=== PATIENT | female | born 1945 | race Caucasian/White ===

== ENCOUNTER 2017-10-27 22:01 | Emergency (ER) | payer OTHER ==
[2017-10-27 23:02] LABS: Absolute Lymphocytes (CBC) 2.9 K/uL (0.7-4.9); Absolute Monocytes 0.9 K/uL (0.1-1.3); Absolute Neutrophil 4.2 K/uL (1.8-8.0); Basophils % 0.7 % (0-1.3); Eosinophils % 1.4 % (0-4.4); Hematocrit 41.4 % (36.0-45.0); Lymphocytes % 35.7 % (15.3-44.8); MCH 30.1 pg (27.0-35.0); MCV 89.7 fL (80-100); MPV 9.1 fL (7.6-11.3); Monocytes % 10.9 % (3.3-12.3); RBC Red Blood Cell Count 4.62 M/uL (3.86-4.86)
[2017-10-27 23:16] LABS: Potassium 3.6 mEq/L (3.6-5.0); Protime INR 1.03
[2017-10-27 23:22] LABS: Albumin 4.2 g/dL (3.2-5.5); Bilirubin Direct 0.1 mg/dL (0-0.2); Bilirubin Total 0.6 mg/dL (0.3-1.2); Magnesium 1.9 mg/dL (1.8-2.5); Protein, Total 7.2 g/dL (6.0-8.3)
[2017-10-27] MEDS ORDERED: METHYLPREDNISOLONE 125 MG INJ ONE (23:36)
[2017-10-27] MEDS ORDERED: LEVALBUTEROL 1.25 MG/3 ML NEB ONE (23:36)
[2017-10-27] MEDS ORDERED: Magnesium Sulfate 2gm IVPB 2 G/50 ML BAG IV ONE (23:37)
[2017-10-28] MEDS ORDERED: LEVALBUTEROL 1.25 MG/3 ML NEB ONE (00:22)
[2017-10-28] MEDS ORDERED: CEFTRIAXONE/SWI 1gm 2 GM/20 ML SYR ONE (00:40)
[2017-10-28] MEDS ORDERED: AZITHROMYCIN 500 MG/250 ML BAG ONE (00:42)
[2017-10-28] MEDS ORDERED: ONDANSETRON 4 MG/2 ML VIAL ONE (00:50)
--- NOTE | 2017-10-28 01:29 | ER ---
Nurse's Notes [facility] Name: Magaly Osorio Age: 72 yrs Sex: Female : 1945 Arrival Date: 10/27/2017 Time: 22:03 Bed 2 Private MD: Diagnosis: COPD exacerbation Presentation: 10/27 22:20 Presenting complaint: Patient states: "I'm wheezing a lot. I have an inhaler and is not ao working. I'm coughing a lot." Patient denies fever and report SOB when walking. Transition of care: patient was not received from another setting of care. Onset of symptoms was October 19, 2007. Care prior to arrival: None. 22:20 Method Of Arrival: Ambulatory ao 22:20 Acuity: DEE 3 ao Triage Assessment: 22:28 General: Appears in no apparent distress. uncomfortable, Behavior is appropriate for ao age. Pain: Complains of pain in chest. Respiratory: Reports shortness of breath at rest Onset: The symptoms/episode began/occurred at an unknown time. the patient has severe shortness of breath. Historical: - Allergies: 22:25 Aspirin; ao 22:25 Benadryl; ao 22:25 Tylenol-Codeine #3; ao - Home Meds: 22:25 prednisone 10 mg Oral tab once daily [Active]; azithromycin 500 mg Oral tab 1 tab once ao daily [Active]; Nexium 20 mg Oral cpDR 1 cap once daily [Active]; Lipitor 10 mg Oral tab 1 tab once daily [Active]; Multiple Vitamins oral oral [Active]; - PMHx: 22:25 acid reflux; COPD; Hyperlipidemia; Asthma; ao - PSHx: 22:25 None; ao - Immunization history:: Adult Immunizations up to date. - Social history:: Smoking status: Patient/guardian denies using tobacco, but has a distant history of tobacco abuse, Patient/guardian denies using alcohol, street drugs. Screenin:47 Abuse screen: Denies threats or abuse. Denies injuries from another. Nutritional bs1 screening: No deficits noted. Tuberculosis screening: No symptoms or risk factors identified. Fall Risk None identified. Assessment: 23:03 General: Appears in no apparent distress. uncomfortable, Behavior is cooperative, bs1 appropriate for age, anxious. Pain: Denies pain. Neuro: Level of Consciousness is awake, alert, obeys commands, Oriented to person, place, time, situation, Appropriate for age Hunting Sales Leader are equal bilaterally Moves all extremities. Gait is steady, Speech is normal, Facial symmetry appears normal, Pupils are PERRLA. Cardiovascular: Denies chest pain, palpitations, Heart tones S1 S2 present Capillary refill < 3 seconds Patient's skin is warm and dry. Rhythm is regular. Respiratory: Breath sounds with wheezes. Respiratory: Airway is patent Trachea midline Respiratory effort is even, unlabored, Respiratory pattern is regular, symmetrical, Breath sounds with wheezes bilaterally. GI: No deficits noted. No signs and/or symptoms were reported involving the gastrointestinal system. : No deficits noted. No signs and/or symptoms were reported regarding the genitourinary system. EENT: No deficits noted. No signs and/or symptoms were reported regarding the EENT system. Derm: No deficits noted. No signs and/or symptoms reported regarding the dermatologic system. Musculoskeletal: Circulation, motion, and sensation intact. Capillary refill < 3 seconds, Range of motion: intact in all extremities. 23:03 General: 2L NC applied per verba, order Dr Resendiz. bs1 23:48 Reassessment: Patient appears in no apparent distress at this time. Patient is alert, bs1 oriented x 3, equal unlabored respirations, skin warm/dry/pink. Patient states symptoms have improved. 10/28 00:30 General: Patient nauseous, zofran given IV 4mg per Order from Dr Resendiz.. bs1 00:48 Reassessment: Patient and/or family updated on plan of care and expected duration. Pain bs1 level reassessed. Patient is alert, oriented x 3, equal unlabored respirations, skin warm/dry/pink. 01:31 Reassessment: Patient appears in no apparent distress at this time. Patient and/or bs1 family updated on plan of care and expected duration. Pain level reassessed. Patient states feeling better. 01:42 Reassessment: Patient appears in no apparent distress at this time. Patient and/or tl2 family updated on plan of care and expected duration. Pain level reassessed. Patient is alert, oriented x 3, equal unlabored respirations, skin warm/dry/pink. pt verbalized understanding of discharge instructions, need for follow up and prescription usage Patient states feeling better. Vital Signs: 10/27 22:26 BP 145 / 90; Pulse 84; Resp 18; Temp 97.4; Pulse Ox 97% ; Weight 80.29 kg; Height 5 ft. ao 1 in. (154.94 cm); Pain 2/10; 23:26 BP 143 / 88; Pulse 82; Resp 17; Temp 97.9(O); Pulse Ox 100% on R/A; Pain 0/10; bs1 10/28 00:26 BP 140 / 86; Pulse 88; Resp 15; Pulse Ox 100% on R/A; Pain 0/10; bs1 01:25 BP 127 / 76; Pulse 92; Resp 16 S; Pulse Ox 100% on R/A; Pain 0/10; bs1 01:42 BP 130 / 77; Pulse 90; Resp 18; Pulse Ox 95% on R/A; tl2 10/27 22:26 Body Mass Index 33.44 (80.29 kg, 154.94 cm) ao ED Course: 10/27 22:03 Patient arrived in ED. al2 22:22 Triage completed. ao 22:22 Arm band placed on right wrist. Patient placed in waiting room, Patient notified of ao wait time. 22:32 Tad Resendiz MD is Attending Physician. wa 22:45 Inserted saline lock: 20 gauge in right antecubital area, using aseptic technique. bs1 23:00 X-ray completed. Patient tolerated procedure well. jw2 23:02 Delores Hanson, RN is Primary Nurse. bs1 23:02 Flu Sent. bs1 23:12 EKG done, by ED staff, reviewed by Tad Resendiz MD. mt 23:40 Second set of blood cultures drawn by ma. bs1 23:47 Patient has correct armband on for positive identification. Bed in low position. Call bs1 light in reach. Side rails up X 1. 10/28 01:42 No provider procedures requiring assistance completed. IV discontinued, intact, tl2 bleeding controlled, No redness/swelling at site. Pressure dressing applied. Administered Medications: 10/27 23:32 Drug: Xopenex 1.25 mg Route: Inhalation; bs1 23:32 Drug: SOLU-Medrol 125 mg Route: IVP; Site: right antecubital; bs1 10/28 01:45 Follow up: Response: No adverse reaction tl2 10/27 23:32 Drug: Magnesium Sulfate 2 grams Route: IVPB; Infused Over: 2 hrs; Site: right bs1 antecubital; 10/28 01:45 Follow up: IV Status: Completed infusion tl2 00:06 Drug: Xopenex 1.25 mg Route: Inhalation; bs1 00:30 Drug: Rocephin - (cefTRIAXone) 2 grams Route: IVPB; Infused Over: 30 mins; Site: right bs1 antecubital; 01:44 Follow up: IV Status: Completed infusion tl2 00:32 Drug: Zithromax 500 mg Route: IVPB; Infused Over: 1 hrs; Site: right antecubital; bs1 01:44 Follow up: IV Status: Completed infusion tl2 00:34 Drug: Zofran 4 mg Route: IVP; Site: right antecubital; bs1 01:32 Follow up: Response: No adverse reaction bs1 Outcome: 01:28 Discharge ordered by . magnus 01:42 Discharged to home ambulatory, with family. tl2 01:42 Condition: stable 01:42 Discharge instructions given to patient, family, Instructed on discharge instructions, follow up and referral plans. medication usage, Demonstrated understanding of instructions, follow-up care, medications, Prescriptions given X 1. 01:45 Patient left the ED. tl2 Signatures: Joey Doyle RN RN ao Wailes, Jenni 2 Luz Drew RN RN tl2 Liss Ferrer mt, William, MD MD wa Salazar, Brittany, RN RN bs1 Светлана Cole al2 Corrections: (The following items were deleted from the chart) 10/27 23:10 22:20 Presenting complaint: Patient states: "I'm wheezing a lot. I have some inhaler ao and are not working. I'm coughing a lot." Patient denies fever and report SOB when walking. ao 10/28 01:20 01:19 BP 143 / 88; Pulse 82bpm; Resp 17bpm; Pulse Ox 100% RA; Temp 97.9F Oral; Pain bs1 0/10; bs1
--- NOTE | 2017-10-28 01:29 | EDPHYS ---
Physician Documentation [facility] Name: Magaly Osorio Age: 72 yrs Sex: Female : 1945 Arrival Date: 10/27/2017 Time: 22:03 Bed 2 Private MD: ED Physician Tad Resendiz Historical: - Allergies: 10/27 22:25 Aspirin; ao 22:25 Benadryl; ao 22:25 Tylenol-Codeine #3; ao - Home Meds: 22:25 prednisone 10 mg Oral tab once daily [Active]; azithromycin 500 mg Oral tab 1 tab once ao daily [Active]; Nexium 20 mg Oral cpDR 1 cap once daily [Active]; Lipitor 10 mg Oral tab 1 tab once daily [Active]; Multiple Vitamins oral oral [Active]; - PMHx: 22:25 acid reflux; COPD; Hyperlipidemia; Asthma; ao - PSHx: 22:25 None; ao - Immunization history:: Adult Immunizations up to date. - Social history:: Smoking status: Patient/guardian denies using tobacco, but has a distant history of tobacco abuse, Patient/guardian denies using alcohol, street drugs. Vital Signs: 22:26 BP 145 / 90; Pulse 84; Resp 18; Temp 97.4; Pulse Ox 97% ; Weight 80.29 kg; Height 5 ft. ao 1 in. (154.94 cm); Pain 2/10; 23:26 BP 143 / 88; Pulse 82; Resp 17; Temp 97.9(O); Pulse Ox 100% on R/A; Pain 0/10; bs1 10/28 00:26 BP 140 / 86; Pulse 88; Resp 15; Pulse Ox 100% on R/A; Pain 0/10; bs1 01:25 BP 127 / 76; Pulse 92; Resp 16 S; Pulse Ox 100% on R/A; Pain 0/10; bs1 01:42 BP 130 / 77; Pulse 90; Resp 18; Pulse Ox 95% on R/A; tl2 10/27 22:26 Body Mass Index 33.44 (80.29 kg, 154.94 cm) ao MDM: 10/27 22:32 Patient medically screened. 10/27 22:42 Order name: Blood Culture Adult (2) 10/27 22:42 Order name: BMP 10/27 22:42 Order name: BNP 10/27 22:42 Order name: CBC with Diff 10/27 22:42 Order name: CPK 10/27 22:42 Order name: Hepatic Function 10/27 22:42 Order name: Magnesium 10/27 22:42 Order name: PT-INR 10/27 22:42 Order name: Troponin (emerg Dept Use Only) ak 10/27 22:43 Order name: Flu ak 10/27 23:06 Order name: CBC with Automated Diff; Complete Time: 00:01 EDMS 10/27 23:16 Order name: Influenza Screen (A ; Complete Time: 00:01 EDMS 10/27 23:17 Order name: Basic Metabolic Panel; Complete Time: 00:01 EDMS 10/27 23:17 Order name: Protime (+INR); Complete Time: 00:01 EDMS 10/27 22:42 Order name: XRAY Chest Pa And Lat (2 Views) ak 10/27 22:42 Order name: EKG; Complete Time: 22:43 ak 10/27 22:42 Order name: Cardiac monitoring; Complete Time: 22:50 ak 10/27 22:42 Order name: EKG - Nurse/Tech; Complete Time: 23:12 ak 10/27 23:23 Order name: Liver (Hepatic) Function; Complete Time: 00:01 EDMS 10/27 23:23 Order name: Creatine Phosphokinase; Complete Time: 00:01 EDMS 10/27 23:23 Order name: Magnesium; Complete Time: 00:01 EDMS 10/27 23:24 Order name: Troponin (Emerg Dept Use Only); Complete Time: 00:01 EDMS 10/27 23:27 Order name: BNP B-Type Natriuretic Peptide; Complete Time: 00:01 EDMS 10/27 22:42 Order name: IV Saline Lock; Complete Time: 22:49 ak 10/27 22:42 Order name: Labs collected and sent; Complete Time: 22:49 ak 10/27 22:42 Order name: O2 Per Protocol; Complete Time: 22:50 ak 10/27 22:42 Order name: O2 Sat Monitoring; Complete Time: 22:50 ak Administered Medications: 23:32 Drug: Xopenex 1.25 mg Route: Inhalation; bs1 23:32 Drug: SOLU-Medrol 125 mg Route: IVP; Site: right antecubital; bs1 10/28 01:45 Follow up: Response: No adverse reaction tl2 10/27 23:32 Drug: Magnesium Sulfate 2 grams Route: IVPB; Infused Over: 2 hrs; Site: right bs1 antecubital; 10/28 01:45 Follow up: IV Status: Completed infusion tl2 00:06 Drug: Xopenex 1.25 mg Route: Inhalation; bs1 00:30 Drug: Rocephin - (cefTRIAXone) 2 grams Route: IVPB; Infused Over: 30 mins; Site: right bs1 antecubital; 01:44 Follow up: IV Status: Completed infusion tl2 00:32 Drug: Zithromax 500 mg Route: IVPB; Infused Over: 1 hrs; Site: right antecubital; bs1 01:44 Follow up: IV Status: Completed infusion tl2 00:34 Drug: Zofran 4 mg Route: IVP; Site: right antecubital; bs1 01:32 Follow up: Response: No adverse reaction bs1 Disposition: 10/28/17 01:28 Discharged to Home. Impression: COPD exacerbation. - Condition is Stable. - Discharge Instructions: Chronic Bronchitis. - Prescriptions for Albuterol Sulfate 2.5 mg /3 mL (0.083 %) Inhalation Solution for Nebulization - inhale 1 unit by NEBULIZATION route every 8 hours As needed; 1 box. - Medication Reconciliation Form, Thank You Letter, Antibiotic Education, Prescription Opioid Use form. - Follow up: Private Physician; When: 2 - 3 days; Reason: Recheck today's complaints. - Problem is new. - Symptoms have improved. - Notes: take 40 mg prednisone daily for 4 days. use albuterol neb every 4 hours as needed for cough and difficulty breathing. you may continue to take your zpack. follow up with your lung doctor within 3 days Addendum: 11/09/2017 17:17 Addendum: CC: Chest congestion. SOB. cough. HPI: 72 yo F w/ h/o asthma and COPD. c/o w a SOB. congestion. cough x 1 week. states taking prednisone 10 mg a day and zithromax but appears to be getting worse. denies chest pain. admits to cough with yellow sputum. PMHx: GERD. COPD. asthma. hyperlipidemia. Allergies: ASA. benadryl. Codeine. Meds: prednisone. zithromax. nexium. lipitor. vitamins. PsurgHx: none. ROS: SOB. cough and congestion. otherwise all ROS reviewed and negative. Exam: Const: NAD. HEENT: normocephalic. atraumatic. neck supple. CVS: NS1S2, no murmurs. Chest: bilateral expiratory wheezing. nml excursion. Abd: obese, non-distended, non-tender. Ext: no swelling. no edema. DDx: r/o pna. r/o ACS. consider asthma vs COPD exacerbation. consider CHF. Plan: monitor. check CXR, labs, EKG. give nebs, solumedrol, mag, abx. reassess. Reassessment: significantly improved. mild scattered wheezes auscultated. pt speaking in full sentences. labs and CXR reviewed. pt desired to go home and f/u with her doc. pt improved enough for trial of out pt continued tx. Dx: cough. SOB. Signatures: Dispatcher [employer] Joey Walker, RN Luz Quiles RN RN tl2 Tad Resendiz MD MD wa Salazar, Brittany RN RN bs1
--- NOTE | 2017-10-28 05:12 | EKG ---
Test Date: 2017-10-27 Test Time: 23:06:14 Marine Biologist: ANI MEASUREMENT RESULTS: Intervals: Rate: 81 NV: 144 QRSD: 92 QT: 360 QTc: 418 [place]: P: 51 NV: 144 QRS: -2 T: 57 INTERPRETIVE STATEMENTS: Normal sinus rhythm Left ventricular hypertrophy with repolarization abnormality Cannot rule out Septal infarct, age undetermined T inversion anterior leads Abnormal ECG Compared to ECG 11/06/2013 07:30:42 Myocardial infarct finding now present T inversion now present Electronically Signed On 10-28-17 05:11:33 CDT by Joss Uriostegui
[2017-10-28 05:25] VITALS: TEMP 97.9
[2017-10-28 05:29] VITALS: BP 130/77; O2SAT 95
--- NOTE | 2017-10-28 08:59 | RAD REPORT ---
EXAM DESCRIPTION: RAD - Chest Pa And Lat (2 Views) - 10/27/2017 11:01 pm CLINICAL HISTORY: Wheezing, cough, shortness of breath COMPARISON: June 2017 TECHNIQUE: PA and lateral views of the chest were obtained. FINDINGS: The lungs are clear. Lung markings are similar to comparison. No peribronchial thickening . Diaphragmatic eventration has not changed. Trachea is in the midline. Heart size is normal and cent ral vasculature is within normal limits. No pleural effusion or pneumothorax seen. No acute bony fi nding noted. No aortic abnormality. IMPRESSION: No acute cardiopulmonary process. No identifiable change from prior imaging.
== END 2017-10-28 01:45 | disposition home or self-care (01) ==
LOC: ER 22:01
DX: J44.1 Chronic obstructive pulmonary disease with (acute) exacerbation (principal); Z88.5 Allergy status to narcotic agent; Z88.6 Allergy status to analgesic agent; Z88.8 Allergy status to other drugs, medicaments and biological substances
CPT/HCPCS: 36415; 71046; 80048; 80076; 82550; 83735; 83880; 84484; 85025; 85610; 87040 ×2; 87804 ×2; 93005; 96361; 96365; 96367; 96375; 99284; J0456; J0696; J2405; J2930; J3475

== ENCOUNTER 2019-01-07 15:55 | Emergency (ER) | payer OTHER ==
--- NOTE | 2019-01-07 18:01 | EDPHYS ---
Physician Documentation [facility] Name: Magaly Osorio Age: 73 yrs Sex: Female : 1945 Arrival Date: 01/07/2019 Time: 15:58 Bed 11 Private MD: Maynor Potts ED Physician Tristin Cason HPI: 01/07 18:15 This 73 yrs old Female presents to ER via Ambulatory with complaints of Ear snw Pain. 18:15 The patient presents with hearing loss, complete. The complaints affect the right ear. snw Onset: The symptoms/episode began/occurred 1 month(s) ago, and became persistent. Associated signs and symptoms: The patient has no apparent associated signs or symptoms. Severity of symptoms: At their worst the symptoms were moderate. The patient has not experienced similar symptoms in the past. It is unknown whether or not the patient has recently seen a physician. Historical: - Allergies: 16:13 Aspirin; tw2 16:13 Benadryl; tw2 16:13 Tylenol-Codeine #3; tw2 - Home Meds: 16:13 Nexium 20 mg Oral cpDR 1 cap once daily [Active]; Lipitor 10 mg Oral tab 1 tab once tw2 daily [Active]; prednisone 10 mg Oral tab once daily [Active]; Multiple Vitamins Oral [Active]; Singulair 10 mg Oral tab 1 tab once daily [Active]; ProAir HFA 90 mcg/actuation inhalation HFAA 2 puffs [Active]; albuterol sulfate 1.25 mg/3 mL Inhl nebu 3 mL 3 times per day [Active]; 16:15 Pulmicort 1 mg/2 mL Inhl nbsp 2 mL once daily [Active]; tw2 - PMHx: 16:13 acid reflux; Asthma; COPD; Hyperlipidemia; tw2 - PSHx: 16:13 None; tw2 - Immunization history:: Adult Immunizations. - Social history:: Smoking status: . - Ebola Screening: : Patient denies travel to an Ebola-affected area in the 21 days before illness onset. ROS: 18:16 Constitutional: Negative for fever, chills, and weight loss, Eyes: Negative for injury, snw pain, redness, and discharge, ENT: Negative for injury, pain, and discharge, + hearing loss to right ear Neck: Negative for injury, pain, and swelling, Cardiovascular: Negative for chest pain, palpitations, and edema, Respiratory: Negative for shortness of breath, cough, wheezing, and pleuritic chest pain, Abdomen/GI: Negative for abdominal pain, nausea, vomiting, diarrhea, and constipation, Back: Negative for injury and pain, : Negative for injury, bleeding, discharge, and swelling, MS/Extremity: Negative for injury and deformity, Skin: Negative for injury, rash, and discoloration, Neuro: Negative for headache, weakness, numbness, tingling, and seizure. Exam: 18:14 Constitutional: This is a well developed, well nourished patient who is awake, alert, snw and in no acute distress. Head/Face: Normocephalic, atraumatic. Eyes: Pupils equal round and reactive to light, extra-ocular motions intact. Lids and lashes normal. Conjunctiva and sclera are non-icteric and not injected. Cornea within normal limits. Periorbital areas with no swelling, redness, or edema. Neck: Trachea midline, no thyromegaly or masses palpated, and no cervical lymphadenopathy. Supple, full range of motion without nuchal rigidity, or vertebral point tenderness. No Meningismus. Chest/axilla: Normal chest wall appearance and motion. Nontender with no deformity. No lesions are appreciated. Cardiovascular: Regular rate and rhythm with a normal S1 and S2. No gallops, murmurs, or rubs. Normal PMI, no JVD. No pulse deficits. Respiratory: Lungs have equal breath sounds bilaterally, clear to auscultation and percussion. No rales, rhonchi or wheezes noted. No increased work of breathing, no retractions or nasal flaring. Abdomen/GI: Soft, non-tender, with normal bowel sounds. No distension or tympany. No guarding or rebound. No evidence of tenderness throughout. Back: No spinal tenderness. No costovertebral tenderness. Full range of motion. Skin: Warm, dry with normal turgor. Normal color with no rashes, no lesions, and no evidence of cellulitis. MS/ Extremity: Pulses equal, no cyanosis. Neurovascular intact. Full, normal range of motion. Neuro: Awake and alert, GCS 15, oriented to person, place, time, and situation. Cranial nerves II-XII grossly intact. Motor strength 5/5 in all extremities. Sensory grossly intact. Cerebellar exam normal. Normal gait. Psych: Awake, alert, with orientation to person, place and time. Behavior, mood, and affect are within normal limits. 18:14 ENT: External ear(s): are unremarkable, Ear canal(s): cerumen impaction, that is severe, that is hard, occluding the right ear canal, Nose: is normal, Mouth: is normal, Voice: is normal. Vital Signs: 16:13 BP 150 / 87; Pulse 84; Resp 17; Temp 97.8(O); Pulse Ox 98% on R/A; Weight 79.83 kg (R); tw2 Height 5 ft. 2 in. (157.48 cm); Pain 5/10; 17:12 BP 134 / 74; Pulse 78; Resp 18; Temp 98; Pulse Ox 98% on R/A; Pain 3/10; mg2 18:15 BP 130 / 78; Pulse 70; Resp 18; Temp 98; Pulse Ox 100% on R/A; mg2 16:13 Body Mass Index 32.19 (79.83 kg, 157.48 cm) tw2 MDM: 17:39 Patient medically screened. ezekiel 18:15 Data reviewed: vital signs, nurses notes. Data interpreted: Pulse oximetry: on room air snw is 98 %. Interpretation: normal. Counseling: I had a detailed discussion with the patient and/or guardian regarding: the historical points, exam findings, and any diagnostic results supporting the discharge/admit diagnosis, the need for outpatient follow up, to return to the emergency department if symptoms worsen or persist or if there are any questions or concerns that arise at home. Special discussion: Based on the history and exam findings, there is no indication for further emergent testing or inpatient evaluation. I discussed with the patient/guardian the need to see the ENT specialist for further evaluation of the symptoms. I discussed with the patient/guardian the need to see the primary care provider for further evaluation of the symptoms. Administered Medications: No medications were administered Disposition: 01/08 07:47 Co-signature as Attending Physician, Tristin Cason MD I agree with the assessment and ezekiel plan of care. Disposition: 01/07/19 18:00 Discharged to Home. Impression: Impacted cerumen, right ear. - Condition is Stable. - Discharge Instructions: Earwax Buildup, Adult, Ear Drops, Adult. - Prescriptions for Debrox 6.5 % Otic drops - instill 10 drop by OTIC route 2 times per day; 1 Container. - Medication Reconciliation Form, Thank You Letter, Antibiotic Education, Prescription Opioid Use form. - Follow up: Maynor Potts MD; When: 2 - 3 days; Reason: Recheck today's complaints, Continuance of care, Re-evaluation by your physician. Follow up: Emergency Department; When: As needed; Reason: Worsening of condition. Follow up: Ayaka Lynne MD; When: 1 week; Reason: Recheck today's complaints, Continuance of care, Re-evaluation by your physician. Signatures: Tristin Cason MD MD cha Therrien, Shelly, ENZYME CHEMIST-C ENZYME CHEMIST-Csnw Ayaka Hernandez RN RN tw2 Mir Martinez RN RN mg2 Corrections: (The following items were deleted from the chart) 01/07 18:16 18:00 01/07/2019 18:00 Discharged to Home. Impression: Impacted cerumen, right ear. mg2 Condition is Stable. Forms are Medication Reconciliation Form, Thank You Letter, Antibiotic Education, Prescription Opioid Use. Follow up: Maynor Potts; When: 2 - 3 days; Reason: Recheck today's complaints, Continuance of care, Re-evaluation by your physician. Follow up: Emergency Department; When: As needed; Reason: Worsening of condition. Follow up: Ayaka Lynne; When: 1 week; Reason: Recheck today's complaints, Continuance of care, Re-evaluation by your physician. snw
--- NOTE | 2019-01-07 18:01 | ER ---
Nurse's Notes [facility] Name: Magaly Osorio Age: 73 yrs Sex: Female : 1945 Arrival Date: 01/07/2019 Time: 15:58 Bed 11 Private MD: Maynor Potts Diagnosis: Impacted cerumen, right ear Presentation: 01/07 16:10 Presenting complaint: Patient states: i cant hear out of my RIGHT ear and it hurts tw2 deep, it started hurting about a month ago, i tried to see if it would get better but it hasnt, i started having nasal congestion the other day, i just got over a bad cold or flu, i dont know if it is coming back or what. Transition of care: patient was not received from another setting of care. Onset of symptoms was January 07, 2019. Risk Assessment: Do you want to hurt yourself or someone else? Patient reports no desire to harm self or others. Initial Sepsis Screen: Does the patient meet any 2 criteria? No. Patient's initial sepsis screen is negative. Does the patient have a suspected source of infection? No. Patient's initial sepsis screen is negative. Care prior to arrival: None. 16:10 Method Of Arrival: Ambulatory tw2 16:10 Acuity: DEE 4 tw2 Triage Assessment: 16:14 General: Appears in no apparent distress. well groomed, Behavior is calm, cooperative, tw2 appropriate for age. Pain: Complains of pain in right ear. EENT: Reports nasal congestion nasal discharge pain in right ear. Historical: - Allergies: 16:13 Aspirin; tw2 16:13 Benadryl; tw2 16:13 Tylenol-Codeine #3; tw2 - Home Meds: 16:13 Nexium 20 mg Oral cpDR 1 cap once daily [Active]; Lipitor 10 mg Oral tab 1 tab once tw2 daily [Active]; prednisone 10 mg Oral tab once daily [Active]; Multiple Vitamins Oral [Active]; Singulair 10 mg Oral tab 1 tab once daily [Active]; ProAir HFA 90 mcg/actuation inhalation HFAA 2 puffs [Active]; albuterol sulfate 1.25 mg/3 mL Inhl nebu 3 mL 3 times per day [Active]; 16:15 Pulmicort 1 mg/2 mL Inhl nbsp 2 mL once daily [Active]; tw2 - PMHx: 16:13 acid reflux; Asthma; COPD; Hyperlipidemia; tw2 - PSHx: 16:13 None; tw2 - Immunization history:: Adult Immunizations. - Social history:: Smoking status: . - Ebola Screening: : Patient denies travel to an Ebola-affected area in the 21 days before illness onset. Screenin:12 Abuse screen: Denies threats or abuse. Denies injuries from another. Nutritional mg2 screening: No deficits noted. Tuberculosis screening: No symptoms or risk factors identified. Fall Risk None identified. Assessment: 17:12 EENT: Reports pain in right ear pain and buzzling sound in the right ear for a month mg2 now. . 18:15 Reassessment: No changes from previously documented assessment. mg2 Vital Signs: 16:13 BP 150 / 87; Pulse 84; Resp 17; Temp 97.8(O); Pulse Ox 98% on R/A; Weight 79.83 kg (R); tw2 Height 5 ft. 2 in. (157.48 cm); Pain 5/10; 17:12 BP 134 / 74; Pulse 78; Resp 18; Temp 98; Pulse Ox 98% on R/A; Pain 3/10; mg2 18:15 BP 130 / 78; Pulse 70; Resp 18; Temp 98; Pulse Ox 100% on R/A; mg2 16:13 Body Mass Index 32.19 (79.83 kg, 157.48 cm) tw2 ED Course: 15:58 Patient arrived in ED. mr 15:58 Maynor Potts MD is Private Physician. mr 16:12 Triage completed. tw2 16:14 Arm band placed on. tw2 16:59 Mir Martinez, TODD is Primary Nurse. mg2 17:12 No provider procedures requiring assistance completed. Patient did not have IV access mg2 during this emergency room visit. 17:13 Patient has correct armband on for positive identification. mg2 17:30 Joanne Xie FNP-C is [facility]. snw 17:30 Tristin Cason MD is Attending Physician. snw 17:58 Maynor Potts MD is Referral Physician. snw 17:58 Ayaka Lynne MD is Referral Physician. snw Administered Medications: No medications were administered Outcome: 18:00 Discharge ordered by MD. brar 18:15 Discharged to home ambulatory, with family. mg2 18:15 Condition: stable 18:15 Discharge instructions given to patient, Instructed on discharge instructions, follow up and referral plans. medication usage, Demonstrated understanding of instructions, follow-up care, medications, Prescriptions given X 1. 18:16 Patient left the ED. mg2 Signatures: Joanne Xie, SPECIAL EDUCATION SUPERVISOR-C SPECIAL EDUCATION SUPERVISOR-Csnw Linda Dozier mr Ayaka Hernandez, RN RN tw2 Mir Martinez, TODD RN mg2
[2019-01-07 19:25] VITALS: TEMP 98
[2019-01-07 19:26] VITALS: BP 130/78; O2SAT 100
== END 2019-01-07 18:16 | disposition home or self-care (01) ==
LOC: ER 15:55
DX: H61.21 Impacted cerumen, right ear (principal); E78.5 Hyperlipidemia, unspecified; J44.9 Chronic obstructive pulmonary disease, unspecified; Z88.5 Allergy status to narcotic agent; Z88.6 Allergy status to analgesic agent; Z88.8 Allergy status to other drugs, medicaments and biological substances
CPT/HCPCS: 99282

== ENCOUNTER 2021-02-20 13:38 | Emergency (ER) | payer OTHER ==
--- OUTSIDE RECORDS SUMMARY | 2021-02-20 13:40 | XMS REPORT | Continuity of Care Document ---
:1945 Author Organization [facility] t Address [address] [place] [address] Care Team Providers Name Role Phone Neal Aguero Attending Clinician Problems This patient has no known problems. Allergies, Adverse Reactions, Alerts This patient has no known allergies or adverse reactions. Medications This patient has no known medications. Procedures This patient has no known procedures. Encounters Start End Encounter Admission Attending Care Care Encounter Source Date/Time Date/Time Type Type Clinicians Facility Department ID 2019-09-10 2019-09-10 Office TERRI Feng [id number] 13:22:38 14:19:24 Visit [facility] [id number] Surgical [id number] Specialti [id number] [address] [place] Results This patient has no known results.
[2021-02-20] MEDS ORDERED: ACETAMINOPHEN 325 MG TABLET ONE (14:39)
--- NOTE | 2021-02-20 15:51 | RAD REPORT ---
EXAM DESCRIPTION: US - Extremity Venous Uni Ltd - 02/20/2021 3:20 pm CLINICAL HISTORY: PAIN Leg swelling and edema. COMPARISON: Extremity Venous Uni Ltd dated 04/08/2020 FINDINGS: Right lower extremity venous system was interrogated with Doppler technique. Normal flow, compressibility and augmentation was noted. There is no DVT present. IMPRESSION: No evidence of right lower extremity deep venous thrombosis.
--- NOTE | 2021-02-20 15:56 | RAD REPORT ---
EXAM DESCRIPTION: RAD - Knee Right 3 View - 02/20/2021 3:27 pm CLINICAL HISTORY: knee pain Pain swelling COMPARISON: Knee Right 3 View dated 12/18/2013 FINDINGS: There is a small suprapatellar joint effusion. Mild arthritic changes are present particul annie in the medial compartment. No acute fracture is demonstrated. Followup MRI of the right knee wou ld be recommended for further evaluation.
--- NOTE | 2021-02-20 16:11 | ER ---
Nurse's Notes [facility] Name: Magaly Osorio Age: 75 yrs Sex: Female : 1945 Arrival Date: 02/20/2021 Time: 13:38 Bed 6 Private MD: Diagnosis: Other internal derangements of right knee Presentation: 02/20 13:53 Chief complaint: Patient states: Fell 4-6 weeks ago, R knee pain for 2 weeks. Got ll1 better, then started to hurt again this week. Pain behind knee, and feels some numbness above the knee. Coronavirus screen: Client denies travel out of the [place] in the last 14 days. At this time, the client does not indicate any symptoms associated with coronavirus-19. Ebola Screen: Patient denies travel to an Ebola-affected area in the 21 days before illness onset. Initial Sepsis Screen: Does the patient meet any 2 criteria? No. Patient's initial sepsis screen is negative. Does the patient have a suspected source of infection? Yes: Bone or joint infection. Risk Assessment: Do you want to hurt yourself or someone else? Patient reports no desire to harm self or others. Onset of symptoms was February 06, 2021. 13:53 Method Of Arrival: Ambulatory ll1 13:53 Acuity: DEE 3 ll1 Historical: - Allergies: 13:55 Benadryl; ll1 13:55 Aspirin; ll1 13:55 Tylenol-Codeine #3; ll1 - Home Meds: 13:55 Pulmicort 1 mg/2 mL Inhl nbsp 2 mL once daily [Active]; ll1 - PMHx: 13:55 Asthma; COPD; acid reflux; Hyperlipidemia; ll1 - PSHx: 13:55 section; ll1 - Immunization history:: Client reports receiving the 2nd dose of the Covid vaccine, Flu vaccine is up to date. - Social history:: Smoking status: Patient denies any tobacco usage or history of. Screenin:07 Abuse screen: Denies threats or abuse. Denies injuries from another. Nutritional sv screening: No deficits noted. Tuberculosis screening: No symptoms or risk factors identified. Fall Risk None identified. Assessment: 14:19 General: Appears in no apparent distress. comfortable, well developed, Behavior is sv calm, cooperative, appropriate for age. Pain: Complains of pain in right leg Pain currently is 10 out of 10 on a pain scale. Neuro: Level of Consciousness is awake, alert, obeys commands, Oriented to person, place, time, situation, Moves all extremities. Full function. Respiratory: Respiratory effort is even, unlabored, Respiratory pattern is regular, symmetrical. Derm: Skin is pink, warm \T\ dry. Musculoskeletal: Range of motion: intact in all extremities. 14:49 Reassessment: US at the bedside. sv 16:20 Reassessment: Patient appears in no apparent distress at this time. Patient and/or sv family updated on plan of care and expected duration. Pain level reassessed. Patient is alert, oriented x 3, equal unlabored respirations, skin warm/dry/pink. Vital Signs: 13:53 BP 152 / 86; Pulse 84; Resp 17; Temp 97.5; Pulse Ox 98% ; Weight 80.29 kg; Height 5 ft. ll1 1 in. (154.94 cm); Pain 10/10; 15:32 BP 144 / 75; Pulse 73; Resp 16; Pulse Ox 99% ; sv 13:53 Body Mass Index 33.44 (80.29 kg, 154.94 cm) ll1 ED Course: 13:38 Patient arrived in ED. ds1 13:55 Triage completed. ll1 13:56 Arm band placed on. ll1 13:59 Patient placed in an exam room, on a stretcher. ll1 14:04 Ayaka Hernandez, TODD is Primary Nurse. sv 14:04 Marlon Savage PA is PHCP. [facility] 14:04 Yakov Boyd MD is Attending Physician. [facility] 14:07 Patient has correct armband on for positive identification. Bed in low position. Call light in reach. 14:09 Nurse Practitioner and/or Physician Mail Opener to see patient. sv 14:27 Awaiting for x-ray, Awaiting: Ultrasound. sv 15:11 X-ray(s) taken. sv 15:20 US Extremity Venous Unilateral Ltd In Process Unspecified. EDMS 15:22 Knee Right 3 View XRAY Sent. sv 15:27 Knee Right 3 View XRAY In Process Unspecified. EDMS 15:32 Awaiting radiology results. Awaiting re-evaluation by ER provider. sv 15:54 Awaiting radiology results. sv 16:10 Knee immobilizer applied on right knee. Pt shown how to apply the immobilizer. Pt is sv driving herself home and will be unable to drive with the immobilizer on. Pt able to demonstrate how to place the immobilizer. 16:11 Evan York MD is Referral Physician. yg 16:20 No provider procedures requiring assistance completed. Patient did not have IV access sv during this emergency room visit. Administered Medications: 14:19 Drug: Tylenol 650 mg Route: PO; sv 15:22 Follow up: Response: No adverse reaction sv Outcome: 16:11 Discharge ordered by . yves 16:21 Discharged to home ambulatory, with family. sv 16:21 Condition: stable 16:21 Discharge instructions given to patient, Instructed on discharge instructions, follow up and referral plans. medication usage, knee immobilizer Demonstrated understanding of instructions, follow-up care, medications, knee immobilizer Prescriptions given X 1. 16:24 Patient left the ED. sv Signatures: Dispatcher [employer] Ayaka Tapia RN RN sv Marlon Savage PA PA jmm Sanford, Demi ds1 Kristian Huffman RN RN ll1
--- NOTE | 2021-02-20 16:12 | EDPHYS ---
Physician Documentation [facility] Name: Magaly Osorio Age: 75 yrs Sex: Female : 1945 Arrival Date: 02/20/2021 Time: 13:38 Bed 6 Private MD: ED Physician Yakov Boyd HPI: 02/20 14:15 This 75 yrs old Female presents to ER via Ambulatory with complaints of R jmm Leg/Knee Pain. 14:15 Onset: The symptoms/episode began/occurred gradually. Modifying factors: The symptoms jmm are alleviated by nothing. remaining still, the symptoms are aggravated by movement. Associated signs and symptoms: Pertinent negatives calf tenderness, fever. This is a 75 year old female with a history of asthma, copd, gerd, hlp that present to the ED with complaints of ongoing right knee pain after a fall which occurred approx 2 week ago. Pain is diffuse with posterior pain as well. 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 Historical: - Allergies: 13:55 Benadryl; ll1 13:55 Aspirin; ll1 13:55 Tylenol-Codeine #3; ll1 - Home Meds: 13:55 Pulmicort 1 mg/2 mL Inhl nbsp 2 mL once daily [Active]; ll1 - PMHx: 13:55 Asthma; COPD; acid reflux; Hyperlipidemia; ll1 - PSHx: 13:55 section; ll1 - Immunization history:: Client reports receiving the 2nd dose of the Covid vaccine, Flu vaccine is up to date. - Social history:: Smoking status: Patient denies any tobacco usage or history of. ROS: 14:15 Constitutional: Negative for fever, chills, and weight loss, Cardiovascular: Negative jmm for chest pain, palpitations, and edema, Respiratory: Negative for shortness of breath, cough, wheezing, and pleuritic chest pain. 14:15 MS/extremity: Positive for pain. 14:15 All other systems are negative. Exam: 14:15 Constitutional: This is a well developed, well nourished patient who is awake, alert, jmm and in no acute distress. Head/Face: atraumatic. Eyes: EOMI, no conjunctival erythema appreciated ENT: Moist Mucus Membranes Neck: Trachea midline, Supple Chest/axilla: Normal chest wall appearance and motion. Cardiovascular: Regular rate and rhythm. No edema appreciated Respiratory: Normal respirations, no respiratory distress appreciated Abdomen/GI: Non distended, soft Back: Normal ROM Skin: General appearance color normal 14:15 Musculoskeletal/extremity: ROM: intact in all extremities, FROM appreciated to the right knee, compartments are soft, no erythema or induration appreciated, full dorsalis pulse, NVI. 14:15 Skin: Appearance: Color: normal in color. 14:15 Neuro: Orientation: is normal, Mentation: is normal, Memory: is normal. 14:15 Psych: Behavior/mood is pleasant, cooperative. Vital Signs: 13:53 BP 152 / 86; Pulse 84; Resp 17; Temp 97.5; Pulse Ox 98% ; Weight 80.29 kg; Height 5 ft. ll1 1 in. (154.94 cm); Pain 10/10; 15:32 BP 144 / 75; Pulse 73; Resp 16; Pulse Ox 99% ; sv 13:53 Body Mass Index 33.44 (80.29 kg, 154.94 cm) ll1 MDM: 14:14 Patient medically screened. [facility] 02/20 14:15 Order name: Knee Right 3 View XRAY; Complete Time: 16:00 [facility] 02/20 14:15 Order name: US Extremity Venous Unilateral Ltd; Complete Time: 16:00 [facility] 02/20 16:00 Order name: Knee Immobilizer; Complete Time: 16:20 [facility] Administered Medications: 14:19 Drug: Tylenol 650 mg Route: PO; sv 15:22 Follow up: Response: No adverse reaction sv Disposition: 17:34 Co-signature as Attending Physician, Yakov Boyd MD. rn Disposition Summary: 02/20/21 16:11 Discharge Ordered Location: Home [facility] Condition: Stable [facility] Diagnosis - Other internal derangements of right knee [facility] Followup: [facility] - With: Evan York MD - When: 2 - 3 days - Reason: Recheck today's complaints, Continuance of care, Re-evaluation by your physician Discharge Instructions: - Discharge Summary Sheet [facility] - Chronic Knee Pain, Adult [facility] Forms: - Medication Reconciliation Form [facility] - Thank You Letter [facility] - Antibiotic Education [facility] - Prescription Opioid Use [facility] Prescriptions: - orphenadrine citrate 100 mg Oral Tablet Sustained Release - take 1 tablet by ORAL route 2 times per day As needed; 20 tablet; Refills: 0, jmm Product Selection Permitted Signatures: Dispatcher [employer] Ayaka Tapia, RN RN Marlon Hussein PA PA jmm Nieto, Roman, MD MD rn Lewis, Lynsay, RN RN ll1
[2021-02-20 16:49] VITALS: TEMP 97.5
[2021-02-20 16:50] VITALS: BP 144/75; O2SAT 99
== END 2021-02-20 16:24 | disposition home or self-care (01) ==
LOC: ER 13:38
DX: M23.8X1 Other internal derangements of right knee (principal); W19.XXXA Unspecified fall, initial encounter; J44.9 Chronic obstructive pulmonary disease, unspecified; Z88.5 Allergy status to narcotic agent; Z88.6 Allergy status to analgesic agent; Z88.8 Allergy status to other drugs, medicaments and biological substances
CPT/HCPCS: 93971; 99284

== ENCOUNTER → 2023-09-03 | Emergency (ER) | payer OTHER ==
[~2023-09-03] MED LIST: ONDANSETRON 4 MG/2 ML VIAL ONE; SMZ./TMP. 800/160 MG TABLET ONE; TRAMADOL HCL 50 MG TAB ONE
--- OUTSIDE RECORDS SUMMARY | 2023-09-03 02:56 | XMS REPORT | Continuity of Care Document ---
Author Name Unknown Address [address] [facility] [address] [place] [address] [facility] Address [address] [facility] [address] [place] [address] Care Team Providers Care Sr Risk Management Consultant Name Role Phone [email or web address]_S Attending Clinician Unavaila GABRIEL Browning Attending Clinician Unavail able Bayron Aguero Attending Clinician [phone] Paulo Dunn [facility] Main Attending Clinician Unavailabl e Doctor Unassigned, [place] Attending Clinician U Ronal Ruiz MD Attending Clinician [phone] [email or web address]_S Admitting Clinician Nhi hernandez Payers Payer Name Policy Type Policy Number Effective Date Expirati on Date Source [employer] MEDICARE PPO [id number] 00:00:00 [employer] (MEDICARE REPLACEMENT PPO) [id number] 2022 00:00:00 Problems Condition Name Condition Details Condition Category Status Onset Date Resolution Date Last Treatment Date Treating Clinician Comments Source Chest pain Chest pain Disease Active 1-14 00:00: 00 [facility] Allergies, Adverse Reactions, Alerts Allergy Name Allergy Type Status Severity Reaction(s) Onset Date Inactive Date Treating Clinician Comments Source Aspirin Propensi ty to adverse reaction s Active Itching 08-19 00:00: 00 [facility] Benadryl Allergy Deconges tant Propensi ty to adverse reaction s Active Itching 08-19 00:00: 00 [facility] Social History Social Habit Start Date Stop Date Quantity Comments Source Sex Assigned At [facility] Alcohol intake 2019-09-10 00:00:00 2019-09-10 00:00:00 [facility] Smoking Status Start Date Stop Date Source Former smoker 2019-09-10 00:00:00 2019-09-10 00:00:00 [facility] Medications Ordered Medication Name Filled Medication Name Start Date Stop Date Current Medication? Ordering Clinician Indication Dosage Frequency Signature (SIG) Comments Components Source Budesonide (PULMICORT FLEXHALER) 90 mcg/actuati on aerosol powder 09-10 19:33: 21 Yes Inhale. [facility] Budesonide (PULMICORT FLEXHALER) 90 mcg/actuati on aerosol powder 09-10 19:33: 21 Yes Inhale. [facility] umeclidiniu m-vilantero l (ANORO ELLIPTA) 62.5-25 mcg/actuati on inhalation disk 09-10 19:32: 31 Yes Inhale daily. [facility] trolamine salicylate (ASPERCREME TOPICAL) 09-10 19:32: 31 Yes Apply to area(s). [facility] umeclidiniu m-vilantero l (ANORO ELLIPTA) 62.5-25 mcg/actuati on inhalation disk 09-10 19:32: 31 Yes Inhale daily. [facility] trolamine salicylate (ASPERCREME TOPICAL) 09-10 19:32: 31 Yes Apply to area(s). [facility] albuterol 2.5 mg /3 mL (0.083 %) nebulizer solution 09-10 19:31: 44 Yes 2.5mg Inhale 2.5 mg 3 (three) times daily. [facility] loratadine (CLARITIN) 10 mg tablet 09-10 19:31: 44 Yes 10mg Take 10 mg by mouth daily. [facility] atorvastati n (LIPITOR) 40 mg tablet 09-10 19:31: 44 Yes 40mg Take 40 mg by mouth at bedtime. [facility] esomeprazol e 40 mg capsule 09-10 19:31: 44 Yes 40mg Take 40 mg by mouth daily with breakfast. [facility] albuterol 2.5 mg /3 mL (0.083 %) nebulizer solution 09-10 19:31: 44 Yes 2.5mg Inhale 2.5 mg 3 (three) times daily. [facility] loratadine (CLARITIN) 10 mg tablet 09-10 19:31: 44 Yes 10mg Take 10 mg by mouth daily. [facility] atorvastati n (LIPITOR) 40 mg tablet 09-10 19:31: 44 Yes 40mg Take 40 mg by mouth at bedtime. [facility] esomeprazol e 40 mg capsule 09-10 19:31: 44 Yes 40mg Take 40 mg by mouth daily with breakfast. [facility] diclofenac 75 mg EC tablet 2018-08 00:00: 00 Yes [id number] 75mg Take 1 tablet by mouth 2 (two) times daily with meals. [facility] diclofenac 75 mg EC tablet 2018-08 00:00: 00 Yes [id number] 75mg Take 1 tablet by mouth 2 (two) times daily with meals. [facility] diclofenac 75 mg EC tablet 2018-08 00:00: 00 Yes [id number] 75mg Take 1 tablet by mouth 2 (two) times daily with meals. [facility] diclofenac 75 mg EC tablet 2018-08 00:00: 00 Yes [id number] 75mg Take 1 tablet by mouth 2 (two) times daily with meals. [facility] diclofenac 75 mg EC tablet 2018-08 00:00: 00 Yes [id number] 75mg Take 1 tablet by mouth 2 (two) times daily with meals. [facility] diclofenac 75 mg EC tablet 2018-08 00:00: 00 Yes [id number] 75mg Take 1 tablet by mouth 2 (two) times daily with meals. [facility] diclofenac 75 mg EC tablet 2018-08 00:00: 00 Yes [id number] 75mg Take 1 tablet by mouth 2 (two) times daily with meals. [facility] montelukast 10 mg tablet 2018-08 00:00: 00 Yes [facility] montelukast 10 mg tablet 2018-08 00:00: 00 Yes [facility] montelukast 10 mg tablet 2018-08 00:00: 00 Yes [facility] montelukast 10 mg tablet 2018-08 00:00: 00 Yes [facility] montelukast 10 mg tablet 2018-08 00:00: 00 Yes [facility] montelukast 10 mg tablet 2018-08 00:00: 00 Yes [facility] montelukast 10 mg tablet 2018-08 00:00: 00 Yes [facility] predniSONE 10 mg tablet 2018-08 00:00: 00 Yes [facility] predniSONE 10 mg tablet 2018-08 00:00: 00 Yes [facility] gabapentin 100 mg capsule 2018-08 00:00: 00 Yes [facility] diclofenac 3 % gel 2018-08 00:00: 00 Yes [facility] gabapentin 100 mg capsule 2018-08 00:00: 00 Yes [facility] diclofenac 3 % gel 2018-08 00:00: 00 Yes [facility] gabapentin 100 mg capsule 2018-08 00:00: 00 Yes [facility] diclofenac 3 % gel 2018-08 00:00: 00 Yes [facility] gabapentin 100 mg capsule 2018-08 00:00: 00 Yes [facility] diclofenac 3 % gel 2018-08 00:00: 00 Yes [facility] gabapentin 100 mg capsule 2018-08 00:00: 00 Yes [facility] diclofenac 3 % gel 2018-08 00:00: 00 Yes [facility] gabapentin 100 mg capsule 2018-08 00:00: 00 Yes [facility] diclofenac 3 % gel 2018-08 00:00: 00 Yes [facility] gabapentin 100 mg capsule 2018-08 00:00: 00 Yes [facility] diclofenac 3 % gel 2018-08 00:00: 00 Yes [facility] RESTASIS 0.05 % ophthalmic drops 2018-08 00:00: 00 Yes [facility] RESTASIS 0.05 % ophthalmic drops 2018-08 00:00: 00 Yes [facility] RESTASIS 0.05 % ophthalmic drops 2018-08 00:00: 00 Yes [facility] RESTASIS 0.05 % ophthalmic drops 2018-08 00:00: 00 Yes [facility] RESTASIS 0.05 % ophthalmic drops 2018-08 00:00: 00 Yes [facility] RESTASIS 0.05 % ophthalmic drops 2018-08 00:00: 00 Yes [facility] RESTASIS 0.05 % ophthalmic drops 2018-08 00:00: 00 Yes [facility] PARoxetine 10 mg tablet 2018-08 00:00: 00 Yes [facility] PARoxetine 10 mg tablet 2018-08 00:00: 00 Yes [facility] PARoxetine 10 mg tablet 2018-08 00:00: 00 Yes [facility] PARoxetine 10 mg tablet 2018-08 00:00: 00 Yes [facility] PARoxetine 10 mg tablet 2018-08 00:00: 00 Yes [facility] PARoxetine 10 mg tablet 2018-08 00:00: 00 Yes [facility] PARoxetine 10 mg tablet 2018-08 00:00: 00 Yes [facility] albuterol 2.5 mg /3 mL (0.083 %) nebulizer solution 08-20 21:31: 13 Yes 2.5mg Inhale 2.5 mg 3 (three) times daily. [facility] loratadine (CLARITIN) 10 mg tablet 08-20 21:31: 13 Yes 10mg Take 10 mg by mouth daily. [facility] umannlimary kateiu m-vilantero l (ANORO ELLIPTA) 62.5-25 mcg/actuati on inhalation disk 08-20 21:31: 13 Yes Inhale daily. [facility] atorvastati n (LIPITOR) 40 mg tablet 08-20 21:31: 13 Yes 40mg Take 40 mg by mouth at bedtime. [facility] esomeprazol e 40 mg capsule 08-20 21:31: 13 Yes 40mg Take 40 mg by mouth daily with breakfast. [facility] albuterol 2.5 mg /3 mL (0.083 %) nebulizer solution 08-20 21:31: 13 Yes 2.5mg Inhale 2.5 mg 3 (three) times daily. [facility] loratadine (CLARITIN) 10 mg tablet 08-20 21:31: 13 Yes 10mg Take 10 mg by mouth daily. [facility] umeclidiniu m-vilantero l (ANORO ELLIPTA) 62.5-25 mcg/actuati on inhalation disk 08-20 21:31: 13 Yes Inhale daily. [facility] atorvastati n (LIPITOR) 40 mg tablet 08-20 21:31: 13 Yes 40mg Take 40 mg by mouth at bedtime. [facility] esomeprazol e 40 mg capsule 08-20 21:31: 13 Yes 40mg Take 40 mg by mouth daily with breakfast. [facility] albuterol 2.5 mg /3 mL (0.083 %) nebulizer solution 08-20 21:31: 13 Yes 2.5mg Inhale 2.5 mg 3 (three) times daily. [facility] loratadine (CLARITIN) 10 mg tablet 08-20 21:31: 13 Yes 10mg Take 10 mg by mouth daily. [facility] litiu m-davidantero l (ANORO ELLIPTA) 62.5-25 mcg/actuati on inhalation disk 08-20 21:31: 13 Yes Inhale daily. [facility] atorvastati n (LIPITOR) 40 mg tablet 08-20 21:31: 13 Yes 40mg Take 40 mg by mouth at bedtime. [facility] esomeprazol e 40 mg capsule 08-20 21:31: 13 Yes 40mg Take 40 mg by mouth daily with breakfast. [facility] albuterol 2.5 mg /3 mL (0.083 %) nebulizer solution 08-20 21:31: 13 Yes 2.5mg Inhale 2.5 mg 3 (three) times daily. [facility] loratadine (CLARITIN) 10 mg tablet 08-20 21:31: 13 Yes 10mg Take 10 mg by mouth daily. [facility] alma delialimary kateiu chante-vilantero l (ANORO ELLIPTA) 62.5-25 mcg/actuati on inhalation disk 08-20 21:31: 13 Yes Inhale daily. [facility] atorvastati n (LIPITOR) 40 mg tablet 08-20 21:31: 13 Yes 40mg Take 40 mg by mouth at bedtime. [facility] atorvastati n (LIPITOR) 40 mg tablet 08-20 21:31: 13 Yes 40mg Take 40 mg by mouth at bedtime. [facility] esomeprazol e 40 mg capsule 08-20 21:31: 13 Yes 40mg Take 40 mg by mouth daily with breakfast. [facility] albuterol 2.5 mg /3 mL (0.083 %) nebulizer solution 08-20 21:31: 13 Yes 2.5mg Inhale 2.5 mg 3 (three) times daily. [facility] loratadine (CLARITIN) 10 mg tablet 08-20 21:31: 13 Yes 10mg Take 10 mg by mouth daily. [facility] santos ang (ANORO ELLIPTA) 62.5-25 mcg/actuati on inhalation disk 08-20 21:31: 13 Yes Inhale daily. [facility] esomeprazol e 40 mg capsule 08-20 21:31: 13 Yes 40mg Take 40 mg by mouth daily with breakfast. [facility] Vital Signs Vital Name Observation Time Observation Value Comments S dayne Body height 2019-09-10 19:24:00 157.5 cm [facility] Body weight 2019-09-10 19:24:00 79.833 kg [facility] BMI 2019-09-10 19:24:00 32.19 kg/m2 [facility] Body height 2019-09-10 19:24:00 157.5 cm [facility] Body weight 2019-09-10 19:24:00 79.833 kg [facility] BMI 2019-09-10 19:24:00 32.19 kg/m2 [facility] Systolic blood pressure 2019-09-03 19:20:00 154 mm[Hg] [facility] Diastolic blood pressure 2019-09-03 19:20:00 82 mm[Hg] [facility] Heart rate 2019-09-03 19:20:00 92 /min [facility] Respiratory rate 2019-09-03 19:20:00 18 /min [facility] Body height 2019-09-03 19:20:00 157.5 cm [facility] Body weight 2019-09-03 19:20:00 79.833 kg [facility] BMI 2019-09-03 19:20:00 32.19 kg/m2 [facility] Procedures Procedure Date / Time Performed Performing Clinician Source URIC ACID 2019-09-03 20:33:00 Bayron Feng [facility] R[facility]AT[facility] FA[facility] 2019-09-03 [facility] 2019-09-03 20:33:00 Bayron Feng [facility] CBC WITH DIFFERENTIAL 2019-09-03 20:33:00 Bayron Feng [facility] ANTI-NUCLEAR ANTIBODY SCREEN 2019-09-03 20:33:00 Bayron Feng [facility] ASSIGNMENT OF BENEFITS 2019-09-03 20:22:02 Docto r Unassigned, [place] [facility] Encounters Start Date/Time End Date/Time Encounter Type Admission Type Attending [facility] Facility Care Department Encounter ID Source 2022-12-14 14:17:00 [facility] [id number] [facility] 2022-03-13 11:13:01 [facility] [id number] [facility] 2022-01-05 07:51:46 Outpatient [facility] [id number] [facility] 2021-08-31 14:21:49 [facility] [id number] [facility] 2023-03-28 00:00:00 2023-03-28 00:00:00 Outpatient GC_GCBZW_Ka diyala_S [facility] [id number] [facility] 2022-01-02 10:56:00 2022-01-02 14:15:00 Emergency E GABRIEL SR [facility] [id number] [facility] 2019-09-10 13:22:38 2019-09-10 14:19:24 Office Visit Bayrno Feng [facility] [id number] [facility] 2019-09-10 13:22:38 2019-09-10 14:19:24 Office Visit Bayron Feng [facility] [place] [id number] [id number] 2019-09-03 14:23:41 2019-09-03 14:38:41 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, 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 Bayron Feng [facility] [id number] [facility] 2019-09-03 13:17:38 2019-09-03 14:02:28 Office Visit Bayron Feng [facility] Surgical Specialti luzmaria Calvin [id number] [facility] 2019-09-03 00:00:00 2019-09-03 00:00:00 Orders Only Doctor Unassigned, [place] [facility] [id number] [facility] 2019-08-29 00:00:00 2019-08-29 00:00:00 Telephone Ronal Grubbs [facility] [id number] [facility] Results Test Description Test Time Test Comments Results Result Co mments Source [facility] [id number] 19:00:00* Test Item Value Reference Range Interpretation Comme nts MELIDA (test code = 0332922519) Negative Negative ORESTES (test code = ORESTES) Negative - No Anti-Nuclear Antibodies detected by IFA.Positive - MELIDA IFA screen performed with a 1:80 dilution in adults and a 1:40 dilution in pediatrics. Any MELIDA "Positive" will have titer performed and reported separately.Negative - No Anti-Nuclear Antibodies detected by IFA.Positive - MELIDA IFA screen performed with a 1:80 dilution in adults and a 1:40 dilution in pediatrics. Any MELIDA "Positive" will have titer performed and reported separately. Lab Interpretation (test code = 79526-9) Normal [facility] [id number] 16:42:00* Test Item Value Reference Range Interpretation Comme nts RF (test code = 8726886889) <20 See_Comment [Automated messa ge] The system which generated this result transmitted reference range: <20 IU/mL. The reference range was not used to interpret this result as normal/abnormal. Lab Interpretation (test code = 95608-2) Normal [facility] [id number] 16:42:00* Test Item Value Reference Range Interpretation Comme nts RF (test code = 1855149445) <20 See_Comment [Automated messa ge] The system which generated this result transmitted reference range: <20 IU/mL. The reference range was not used to interpret this result as normal/abnormal. Lab Interpretation (test code = 77139-7) Normal [facility] [id number] 21:44:00* Test Item Value Reference Range Interpretation Comme nts ESR (test code = 8484861692) See_Comment [Automated messa ge] The system which generated this result transmitted reference range: 0 - 20 mm/HR. The reference range was not used to interpret this result as normal/abnormal. Lab Interpretation (test code = 21533-3) Normal [facility] [id number] 21:44:00* Test Item Value Reference Range Interpretation Comme nts ESR (test code = 2720080215) See_Comment [Automated messa ge] The system which generated this result transmitted reference range: 0 - 20 mm/HR. The reference range was not used to interpret this result as normal/abnormal. Lab Interpretation (test code = 50867-0) [facility] [id number] 21:26:00* Test Item Value Reference Range Interpretation Comme nts URIC ACID (test code = 3252726457) 4.4 mg/dL 2.9-6 Lab Interpretation (test cod e = 95165-7) [facility] [id number] 21:26:00* Test Item Value Reference Range Interpretation Comme nts URIC ACID (test code = 0083472419) 4.4 mg/dL 2.9-6 Lab Interpretation (test cod e = 17793-3) Normal [facility] WITH [id number] 20:45:00* Test Item Value Reference Range Interpretation Comme nts WBC (test code = 6690-2) See_Comment [Automated messa ge] The system which generated this result transmitted reference range: 4.30 - 11.10 10*3/?L. The reference range was not used to interpret this result as normal/abnormal. RBC (test code = 789-8) See_Comment [Automated messa ge] The system which generated this result transmitted reference range: 3.93 - 5.25 10*6/?L. The reference range was not used to interpret this result as normal/abnormal. HGB (test code = 718-7) 14.4 g/dL 11.6-15 HCT (test code = 4544-3) 42.3 % 35.7-45.2 MCV (test code = 787-2) 90.2 fL 80.6-95.5 MCH (test code = 785-6) 30.7 pg 25.9-32.8 MCHC (test code = 786-4) 34.0 g/dL 31.6-35.1 RDW-SD (test code = 77563-2) 40.3 fL 39-49.9 RDW-CV (test code = 788-0) 12.2 % 12-15.5 PLT (test code = 777-3) See_Comment [Automated messa ge] The system which generated this result transmitted reference range: 166 - 358 10*3/?L. The reference range was not used to interpret this result as normal/abnormal. MPV (test code = 18524-0) 10.4 fL 9.5-12.9 NRBC/100 WBC (test code = 8393232616) See_Comment [Automated [employer] [facility]age] The system which generated this result transmitted reference range: 0.0 - 10.0 /100 WBCs. The reference range was not used to interpret this result as normal/abnormal. NRBC x10^3 (test code = 0004551616) <0.01 See_Comment [Automated messa ge] The system which generated this result transmitted reference range: 10*3/?L. The reference range was not used to interpret this result as normal/abnormal. GRAN MAT (NEUT) % (test code = 770-8) 49.0 % IMM GRAN % (test code = 8591249308) 0.10 % LYMPH % (test code = 736-9) 35.0 % MONO % (test code = 5905-5) 13.5 % EOS % (test code = 713-8) 1.7 % BASO % (test code = 706-2) 0.7 % GRAN MAT x10^3(ANC) (test code = 3616356633) 3.38 10*3/uL 1.88-7.09 IMM GRAN x10^3 (test code = 4677701066) <0.03 0-0.06 LYMPH x10^3 (test code = 731-0) 2.42 10*3/uL 1.32-3.29 MONO x10^3 (test code = 742-7) 0.93 10*3/uL 0.33-0.92 H EOS x10^3 (test code = 711-2) 0.12 10*3/uL 0.03-0.39 BASO x10^3 (test code = 704-7) 0.05 10*3/uL 0.01-0.07 Lab Interpretation (test code = 54082-6) Abnormal [facility] WITH [id number] 20:45:00* Test Item Value Reference Range Interpretation Comme nts WBC (test code = 6690-2) See_Comment [Automated [employer]] The system which generated this result transmitted reference range: 4.30 - 11.10 10*3/?L. The reference range was not used to interpret this result as normal/abnormal. RBC (test code = 789-8) See_Comment [Automated [employer]] The system which generated this result transmitted reference range: 3.93 - 5.25 10*6/?L. The reference range was not used to interpret this result as normal/abnormal. HGB (test code = 718-7) 14.4 g/dL 11.6-15 HCT (test code = 4544-3) 42.3 % 35.7-45.2 MCV (test code = 787-2) 90.2 fL 80.6-95.5 MCH (test code = 785-6) 30.7 pg 25.9-32.8 MCHC (test code = 786-4) 34.0 g/dL 31.6-35.1 RDW-SD (test code = 06286-2) 40.3 fL 39-49.9 RDW-CV (test code = 788-0) 12.2 % 12-15.5 PLT (test code = 777-3) See_Comment [Automated messa ge] The system which generated this result transmitted reference range: 166 - 358 10*3/?L. The reference range was not used to interpret this result as normal/abnormal. MPV (test code = 57556-8) 10.4 fL 9.5-12.9 NRBC/100 WBC (test code = 3821888494) See_Comment [Automated [facility] [facility] ssage] The system which generated this result transmitted reference range: 0.0 - 10.0 /100 WBCs. The reference range was not used to interpret this result as normal/abnormal. NRBC x10^3 (test code = 4854816216) <0.01 See_Comment [Automated messa ge] The system which generated this result transmitted reference range: 10*3/?L. The reference range was not used to interpret this result as normal/abnormal. GRAN MAT (NEUT) % (test code = 770-8) 49.0 % IMM GRAN % (test code = 9616331867) 0.10 % LYMPH % (test code = 736-9) 35.0 % MONO % (test code = 5905-5) 13.5 % EOS % (test code = 713-8) 1.7 % BASO % (test code = 706-2) 0.7 % GRAN MAT x10^3(ANC) (test code = 5396422681) 3.38 10*3/uL 1.88-7.09 IMM GRAN x10^3 (test code = 2226507369) <0.03 0-0.06 LYMPH x10^3 (test code = 731-0) 2.42 10*3/uL 1.32-3.29 MONO x10^3 (test code = 742-7) 0.93 10*3/uL 0.33-0.92 H EOS x10^3 (test code = 711-2) 0.12 10*3/uL 0.03-0.39 BASO x10^3 (test code = 704-7) 0.05 10*3/uL 0.01-0.07 Lab Interpretation (test code = 05316-8) Abnormal [facility]
[2023-09-03 04:37] LABS: Absolute Lymphocytes (CBC) 2.4 K/uL (0.7-4.9); Hematocrit 39.9 % (36.0-45.0); Lymphocytes % 18.6 % (15.3-44.8); MCV 89.8 fL (80-100); MPV 8.4 fL (7.6-11.3); Platelets 273 thou/uL (152-406); RBC Red Blood Cell Count 4.44 M/uL (3.86-4.86)
[2023-09-03 04:38] LABS: Protime INR 1.05
[2023-09-03 04:44] LABS: Albumin 3.8 g/dL (3.4-5.0); Bilirubin Total 0.7 mg/dL (0.2-1.0); Potassium 4.2 mEq/L (3.5-5.1); Protein, Total 7.5 g/dL (6.4-8.2)
--- NOTE | 2023-09-03 05:33 | ER ---
Nurse's Notes [facility] Name: Magaly Osorio Age: 78 yrs Sex: Female : 1945 Arrival Date: 09/03/2023 Time: 02:53 Bed 8 Private MD: Diagnosis: Pain in right foot;Cellulitis of right lower limb Presentation: 09/03 03:02 Chief complaint: I have pain on my right foot that suddenly started yesterday. I have a ha1 history of blood clots and I am afraid it might be due to a clot. warm to the touch. 03:02 Coronavirus screen: Vaccine status: Patient reports receiving the 2nd dose of the covid ha1 vaccine. Moderna. Ebola Screen: No symptoms or risks identified at this time. Initial Sepsis Screen: Does the patient meet any 2 criteria? No. Patient's initial sepsis screen is negative. Does the patient have a suspected source of infection? No. Patient's initial sepsis screen is negative. Risk Assessment: Do you want to hurt yourself or someone else? Patient reports no desire to harm self or others. Onset of symptoms was September 03, 2023. 03:02 Method Of Arrival: Wheelchair ha1 03:02 Acuity: DEE 3 ha1 Triage Assessment: 03:02 General: Appears uncomfortable, Behavior is calm, cooperative. Pain: Complains of pain ha1 in right foot Pain does not radiate. Pain currently is 10 out of 10 on a pain scale. Quality of pain is described as throbbing, Pain began suddenly, Is continuous. Neuro: Level of Consciousness is awake, alert, obeys commands, Oriented to person, place, time, situation. Cardiovascular: Patient's skin is warm and dry. Respiratory: Airway is patent Respiratory effort is even, unlabored, Respiratory pattern is regular, symmetrical. GI: No signs and/or symptoms were reported involving the gastrointestinal system. : No signs and/or symptoms were reported regarding the genitourinary system. Derm: Skin is Skin is pink, warm \T\ dry. Musculoskeletal: Circulation, motion, and sensation intact. Range of motion: intact in all extremities, Reports pain in right foot. Historical: - Allergies: 03:02 Aspirin; ha1 03:02 Benadryl; ha1 03:02 Tylenol-Codeine #3; ha1 - PMHx: 03:02 acid reflux; Asthma; COPD; Hyperlipidemia; blood clots (Unknown); ha1 - PSHx: 03:02 section; ha1 - Immunization history:: Adult Immunizations up to date. - Social history:: Smoking status: Patient denies any tobacco usage or history of. - Family history:: not pertinent. - Hospitalizations: : No recent hospitalization is reported. Screenin:02 [facility] ED Fall Risk Assessment (Adult) History of falling in the last 3 months, ha1 including since admission Yes- single mechanical fall (1 pt) Confusion or Disorientation No (0 pts) Intoxicated or Sedated No (0 pts) Impaired Gait No (0 pts) Mobility Assist Device Used No (0 pt) Altered Elimination No (0 pt) Score/Fall Risk Level 0 - 2 = Low Risk Oriented to surroundings, Maintained a safe environment, Educated pt \T\ family on fall prevention, incl call for assistance when getting out of bed, Hourly rounding (assess needs \T\ fall precautionary measures) done. Abuse screen: Denies threats or abuse. Denies injuries from another. Nutritional screening: No deficits noted. Tuberculosis screening: No symptoms or risk factors identified. Assessment: 03:02 Reassessment: see triage assessment. ha1 04:00 Reassessment: Patient and/or family updated on plan of care and expected duration. Pain ha1 level reassessed. Patient is alert, oriented x 3, equal unlabored respirations, skin warm/dry/pink. 04:39 Reassessment: No changes from previously documented assessment. Patient and/or family vc1 updated on plan of care and expected duration. Pain level reassessed. Patient is alert, oriented x 3, equal unlabored respirations, skin warm/dry/pink. 05:40 Reassessment: Patient and/or family updated on plan of care and expected duration. Pain ha1 level reassessed. Patient is alert, oriented x 3, equal unlabored respirations, skin warm/dry/pink. Vital Signs: 03:02 BP 144 / 62; Pulse 88; Resp 17 S; Temp 98.1; Pulse Ox 99% on R/A; Weight 80.74 kg; ha1 Height 5 ft. 2 in. ; Pain 10/10; 04:00 BP 164 / 83; Pulse 82; Resp 20 S; Pulse Ox 100% on R/A; ha1 04:35 BP 154 / 80; Pulse 83; Resp 17; Pulse Ox 98% ; vc1 04:38 BP 154 / 80; Pulse 80; Resp 20 S; Pulse Ox 99% on R/A; ha1 03:02 Body Mass Index 32.56 (80.74 kg, 157.48 cm) ha1 03:02 Pain Scale: Adult ha1 ED Course: 02:57 Patient arrived in ED. ag3 02:59 Yakov Boyd MD is Attending Physician. rn 03:02 Patient has correct armband on for positive identification. Placed in gown. Bed in low ha1 position. Call light in reach. Side rails up X 1. 03:02 Arm band placed on right wrist. ha1 03:40 Inserted saline lock: 22 gauge in right antecubital area, using aseptic technique. ha1 Blood collected. 03:47 Triage completed. ha1 04:22 Blood Culture Adult (2) Sent. ha1 04:22 CBC with Diff Sent. ha1 04:22 CMP Sent. ha1 04:22 Lactate w/ 2H reflex if indic. Sent. ha1 04:22 Protime (+inr) Sent. ha1 04:22 Ptt, Activated Sent. ha1 04:32 Extremity Venous Uni Ltd US In Process Unspecified. EDMS 04:32 Lower Extremity Artery Uni Ltd US In Process Unspecified. EDMS 04:44 XRAY Foot RIGHT 3 View In Process Unspecified. EDMS 04:44 XRAY Ankle RIGHT 3 view In Process Unspecified. EDMS 06:12 No provider procedures requiring assistance completed. IV discontinued, intact, ha1 bleeding controlled, No redness/swelling at site. Pressure dressing applied. 06:12 Provided Education on: medication administration . ha1 Administered Medications: 04:31 Drug: traMADol PO 50 mg PO once Route: PO; vc1 05:00 Follow up: Response: No adverse reaction; Pain is decreased; RASS: Alert and Calm (0) ha1 04:31 Drug: Ondansetron IVP 4 mg IVP once; over 2 minutes Route: IVP; Site: right antecubital;vc1 05:00 Follow up: Response: No adverse reaction; Marked relief of symptoms ha1 06:00 Drug: Trimethoprim-Sulfamethoxazole PO (160 mg-800 mg (DS) 1 tablet PO once Route: PO; ha1 Medication: 06:11 VIS not applicable for this client. ha1 Outcome: 05:32 Discharge ordered by . rn 06:12 Discharged to home via wheelchair, with family, ha1 06:12 Condition: stable 06:12 Discharge instructions given to patient, family, Instructed on discharge instructions, follow up and referral plans. medication usage, Demonstrated understanding of instructions, follow-up care, medications, 06:13 Patient left the ED. ha1 Signatures: Dispatcher [employer] EDMS Yakov Boyd MD MD rn Gomez, Alice ag3 Kamilah Dockery RN RN 1 Therese Salgado RN RN ha1 Corrections: (The following items were deleted from the chart) 03:49 03:02 PMHx: blood clots (Hyperlipidemia); ha1 ha1
--- NOTE | 2023-09-03 05:33 | EDPHYS ---
Physician Documentation [facility] Name: Magaly Osorio Age: 78 yrs Sex: Female : 1945 Arrival Date: 09/03/2023 Time: 02:53 Bed 8 Private MD: ED Physician Yakov Boyd HPI: 09/03 04:18 This 78 yrs old Female presents to ER via Wheelchair with complaints of Foot Pain. rn 04:18 The patient presents with pain, that is acute. The complaints affect the right foot. rn 04:18 Onset: The symptoms/episode began/occurred yesterday. Modifying factors: The symptoms rn are alleviated by nothing, the symptoms are aggravated by weight bearing. Associated signs and symptoms: Pertinent positives: swelling, warmth, Pertinent negatives: fever. Severity of symptoms: At their worst the symptoms were moderate, in the emergency department the symptoms are unchanged. The patient has not experienced similar symptoms in the past. Patient reports several days ago dropped something on the top of her right foot. Did not think anything of it but now as of yesterday started to have moderate right foot pain with associated warmth that radiates up her right anterior leg. No fever. Reports appears red and swollen to her. History of blood clots so came in to make sure she did not have a blood clot.. Historical: - Allergies: 03:02 Aspirin; ha1 03:02 Benadryl; ha1 03:02 Tylenol-Codeine #3; ha1 - PMHx: 03:02 acid reflux; Asthma; COPD; Hyperlipidemia; blood clots (Unknown); ha1 - PSHx: 03:02 section; ha1 - Immunization history:: Adult Immunizations up to date. - Social history:: Smoking status: Patient denies any tobacco usage or history of. - Family history:: not pertinent. - Hospitalizations: : No recent hospitalization is reported. ROS: 04:18 Constitutional: Negative for fever, chills, and weight loss, Cardiovascular: Negative rn for chest pain, palpitations, and edema, Respiratory: Negative for shortness of breath, cough, wheezing, and pleuritic chest pain, Abdomen/GI: Negative for abdominal pain, nausea, vomiting, diarrhea, and constipation, Back: Negative for injury and pain, MS/Extremity: Positive for pain and swelling to right foot Skin: Positive for redness and warmth to right foot Neuro: Negative for headache, weakness, numbness, tingling, and seizure, Exam: 04:18 Constitutional: This is a well developed, well nourished patient who is awake, alert, rn and in no acute distress. Cardiovascular: Regular rate and rhythm. No pulse deficits. Respiratory: No increased work of breathing, no retractions or nasal flaring. MS/ Extremity: Pulses equal, no cyanosis. Neurovascular intact. Mild erythema and warmth to right foot and lower anterior pretibial region. No abscess. No fluctuance. No circumferential swelling or open wounds. No ulcerations. No calf tenderness. No tenderness posterior knee. No significant lymphadenopathy right inguinal region Neuro: Awake and alert, GCS 15 Vital Signs: 03:02 BP 144 / 62; Pulse 88; Resp 17 S; Temp 98.1; Pulse Ox 99% on R/A; Weight 80.74 kg; ha1 Height 5 ft. 2 in. ; Pain 10/10; 04:00 BP 164 / 83; Pulse 82; Resp 20 S; Pulse Ox 100% on R/A; ha1 04:35 BP 154 / 80; Pulse 83; Resp 17; Pulse Ox 98% ; vc1 04:38 BP 154 / 80; Pulse 80; Resp 20 S; Pulse Ox 99% on R/A; ha1 03:02 Body Mass Index 32.56 (80.74 kg, 157.48 cm) ha1 03:02 Pain Scale: Adult ha1 MDM: 02:59 Patient medically screened. rn 05:32 Differential diagnosis: fracture, sprain, cellulitis, DVT, arterial insufficiency. Data rn reviewed: vital signs, nurses notes, lab test result(s), radiologic studies, plain films, ultrasound, and as a result, I will discharge patient. Counseling: I had a detailed discussion with the patient and/or guardian regarding the historical points, exam findings, and any diagnostic results supporting the discharge/admit diagnosis, lab results, radiology results, the need for outpatient follow up, to return to the emergency department if symptoms worsen or persist or if there are any questions or concerns that arise at home. Special discussion: I discussed with the patient/guardian in detail that at this point there is no indication for admission to the hospital. It is understood, however, that if the symptoms persist or worsen the patient needs to return immediately for re-evaluation. Based on the history and exam findings, there is no indication for further emergent testing or inpatient evaluation. I discussed with the patient/guardian the need to see the primary care provider for further evaluation of the symptoms. 09/03 03:18 Order name: Blood Culture Adult (2) rn 09/03 03:18 Order name: CBC with Diff; Complete Time: 04:55 rn 09/03 03:18 Order name: CMP; Complete Time: 04:55 rn 09/03 03:18 Order name: Lactate w/ 2H reflex if indic.; Complete Time: 04:55 rn 09/03 03:18 Order name: Protime (+inr); Complete Time: 04:55 rn 09/03 03:18 Order name: Ptt, Activated; Complete Time: 04:55 rn 09/03 03:18 Order name: Extremity Venous Uni Ltd rn 09/03 03:18 Order name: Lower Extremity Artery Uni Ltd rn 09/03 03:18 Order name: XRAY Foot RIGHT 3 View rn 09/03 03:18 Order name: XRAY Ankle RIGHT 3 view rn 09/03 03:18 Order name: EKG; Complete Time: 03:19 rn 09/03 03:18 Order name: Accucheck; Complete Time: 05:04 rn 09/03 03:18 Order name: Cardiac monitoring; Complete Time: 04:18 rn 09/03 03:18 Order name: EKG - Nurse/Tech; Complete Time: 04:37 rn 09/03 03:18 Order name: IV Saline Lock - Large Bore; Complete Time: 04:18 rn 09/03 03:18 Order name: Labs collected and sent; Complete Time: 04:19 rn 09/03 03:18 Order name: O2 Per Protocol; Complete Time: 04:19 rn 09/03 03:18 Order name: O2 Sat Monitoring; Complete Time: 04:19 rn 09/03 03:18 Order name: Vital Signs; Complete Time: 04:19 rn Administered Medications: 04:31 Drug: traMADol PO 50 mg PO once Route: PO; vc1 05:00 Follow up: Response: No adverse reaction; Pain is decreased; RASS: Alert and Calm (0) ha1 04:31 Drug: Ondansetron IVP 4 mg IVP once; over 2 minutes Route: IVP; Site: right antecubital;vc1 05:00 Follow up: Response: No adverse reaction; Marked relief of symptoms ha1 06:00 Drug: Trimethoprim-Sulfamethoxazole PO (160 mg-800 mg (DS) 1 tablet PO once Route: PO; ha1 Disposition Summary: 09/03/23 05:32 Discharge Ordered Notes: Location: Home rn Problem: new rn Symptoms: have improved rn Condition: Stable rn Diagnosis - Pain in right foot rn - Cellulitis of right lower limb rn Followup: rn - With: Private Physician - When: As needed - Reason: Recheck today's complaints, Re-evaluation by your physician Discharge Instructions: - Discharge Summary Sheet rn - Cellulitis, Adult rn - Foot Pain rn Forms: - Medication Reconciliation Form rn - Thank You Letter rn - Antibiotic assistant county attorney - Prescription Opioid Use rn - Patient Portal Instructions rn - Leadership Thank You Letter rn Prescriptions: - Bactrim DS 800-160 mg Oral Tablet - take 1 tablet ORAL route every 12 hours for 10 days; 20 tablet; Refills: 0, rn Product Selection Permitted Signatures: Dispatcher [employer] EDYakov Lundberg MD MD rn Calcote, Vanessa, RN RN vc1 Therese Salgado RN RN ha1 Corrections: (The following items were deleted from the chart) 03:49 03:02 PMHx: blood clots (Hyperlipidemia); ha1 ha1
[2023-09-03 06:27] VITALS: TEMP 98.1; O2SAT 99
[2023-09-03 06:42] VITALS: BP 154/80
--- NOTE | 2023-09-03 12:36 | RAD REPORT ---
EXAM DESCRIPTION: US - Lower Extremity Artery Uni Ltd - 09/03/2023 4:30 am CLINICAL HISTORY: Female, 78 years old, PAIN COMPARISON: None. TECHNIQUE: Grayscale and color/spectral Doppler ultrasound of the right lower extremity. FINDINGS: RIGHT lower extremity maximal velocities (cm/s): Common femoral: 159 Deep femoral: Not measured Superficial femoral: 141 Popliteal: 84 Anterior tibial: Not measured Posterior tibial: 121 Peroneal: Not measured Dorsalis pedis: 76 Other findings: Triphasic flow without spectral broadening. No significant atherosclerosis identified . IMPRESSION: No hemodynamically significant stenosis in the imaged right lower extremity. Electronically signed by: Louis Rodriguez MD 09/03/2023 04:47 AM AUTOMOBILE LOCATOR Due to temporary technical issues with the PACS/Fluency reporting system, reports are being signed by the in house radiologist without review as a courtesy to ensure prompt reporting. The interpreting r adiologist is fully responsible for the content of the report
--- NOTE | 2023-09-03 12:37 | RAD REPORT ---
EXAM DESCRIPTION: US - Extremity Venous Uni Ltd - 09/03/2023 4:30 am CLINICAL HISTORY: 78 years Female PAIN TECHNIQUE: Grayscale and color Doppler images of the deep veins of the right lower extremity were pe rformed on 09/03/2023 at 4: 10 AM. COMPARISON: Right lower extremity venous Doppler ultrasound report from 02/20/2021. The images were n ot available for review. FINDINGS: Grayscale and color Doppler images of the deep veins of the right lower extremity was perf ormed. The grayscale images reveal normal compressibility of the deep veins. The Doppler images revea l normal flow, phasicity with respiration and normal augmentation with compression. The color flow im ages reveal normal saturation of flow within the deep veins of the right lower extremity. No intralum inal echoes are identified to suggest nonocclusive thrombus. The superficial veins are patent. No additional abnormalities are identified. IMPRESSION: No evidence of deep venous thrombosis in the right lower extremity. Electronically signed by: Beth Sands DO 09/03/2023 04:46 AM PARKING ENFORCEMENT TECHNICIAN Due to temporary technical issues with the PACS/Fluency reporting system, reports are being signed by the in house radiologist without review as a courtesy to ensure prompt reporting. The interpreting r adiologist is fully responsible for the content of the report
--- NOTE | 2023-09-03 12:39 | RAD REPORT ---
EXAM DESCRIPTION: RAD - Foot Right 3 View - 09/03/2023 4:43 am CLINICAL HISTORY: Female, 78 years old, PAIN TECHNIQUE: 3 views right foot, 3 views right ankle COMPARISON: None. FINDINGS: No acute fracture or dislocation. Mild osteopenia. 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 Prominent posterior and plantar calcaneal osteophytes. Mild periph eral vascular calcifications. Soft tissue prominence at the lateral ankle and medial midfoot/forefoot . IMPRESSION: No acute osseous finding of the right foot or ankle. Electronically signed by: Louis Rodriguez MD 09/03/2023 04:54 AM ORDERLY Due to temporary technical issues with the PACS/Fluency reporting system, reports are being signed by the in house radiologist without review as a courtesy to ensure prompt reporting. The interpreting r adiologist is fully responsible for the content of the report
--- NOTE | 2023-09-03 12:45 | RAD REPORT ---
EXAM DESCRIPTION: RAD - Ankle Right 3 View - 09/03/2023 4:43 am CLINICAL HISTORY: Female, 78 years old, PAIN TECHNIQUE: 3 views right foot, 3 views right ankle COMPARISON: None. FINDINGS: No acute fracture or dislocation. Mild osteopenia. 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 Prominent posterior and plantar calcaneal osteophytes. Mild periph eral vascular calcifications. Soft tissue prominence at the lateral ankle and medial midfoot/forefoot . IMPRESSION: No acute osseous finding of the right foot or ankle. Electronically signed by: Louis Rodriguez MD 09/03/2023 04:54 AM RIPSAW OPERATOR Due to temporary technical issues with the PACS/Fluency reporting system, reports are being signed by the in house radiologist without review as a courtesy to ensure prompt reporting. The interpreting r adiologist is fully responsible for the content of the report.
== END ==
LOC: ER 02:53
DX: L03.115 Cellulitis of right lower limb (principal); Z88.5 Allergy status to narcotic agent; Z88.6 Allergy status to analgesic agent; Z88.8 Allergy status to other drugs, medicaments and biological substances
CPT/HCPCS: 93005 ×2; 87040 ×2; 85025; 36415; 85610; 83605; 85730; 80053; 73630; 73610; 93926; 93971; J2405

== ENCOUNTER 2024-08-05 10:06 | Inpatient (IN) | payer OTHER ==
--- OUTSIDE RECORDS SUMMARY | 2024-08-05 10:09 | XMS REPORT | Continuity of Care Document ---
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 IMM GRAN % (test code = 0948001323) 0.10 % LYMPH % (test code = 736-9) 35.0 % MONO % (test code = 5905-5) 13.5 % EOS % (test code = 713-8) 1.7 % BASO % (test code = 706-2) 0.7 % GRAN MAT x10^3(ANC) (test code = 0876239299) 3.38 10*3/uL 1.88-7.09 IMM GRAN x10^3 (test code = 6198742253) <0.03 0-0.06 LYMPH x10^3 (test code = 731-0) 2.42 10*3/uL 1.32-3.29 MONO x10^3 (test code = 742-7) 0.93 10*3/uL 0.33-0.92 H EOS x10^3 (test code = 711-2) 0.12 10*3/uL 0.03-0.39 BASO x10^3 (test code = 704-7) 0.05 10*3/uL 0.01-0.07 Lab Interpretation (test code = 77125-4) Abnormal [facility]
[2024-08-05 11:02] LABS: Absolute Basophils 0.1 K/uL (0-0.5); Absolute Eosinophils 0.2 K/uL (0-0.5); Absolute Lymphocytes (CBC) 1.8 K/uL (0.7-4.9); Absolute Monocytes 0.6 K/uL (0.1-1.3); Absolute Neutrophil 2.7 K/uL (1.8-8.0); Basophils % 1.1 % (0-1.3); Eosinophils % 3.8 % (0-4.4); Hemoglobin 12.8 g/dL (12.0-15.0); Lymphocytes % 33.3 % (15.3-44.8); MCH 30.3 pg (27.0-35.0); MCHC 32.9 g/dL (32.0-36.0); MCV 92.3 fL (80-100); MPV 8.5 fL (7.6-11.3); Monocytes % 10.5 % (3.3-12.3); Neutrophils % 51.3 % (41.7-73.7); Platelets 206 thou/uL (152-406); RBC Red Blood Cell Count 4.23 M/uL (3.86-4.86); Red Cell Distribution Width 13.6 % (12.1-15.2)
--- NOTE | 2024-08-05 11:04 | RAD REPORT ---
EXAMINATION: CT HEAD WITHOUT CONTRAST CT CERVICAL SPINE WITHOUT CONTRAST CLINICAL INDICATION: Head and neck injury status post fall. Head and neck pain TECHNIQUE: Axial CT images from the skull base to the vertex without intravenous contrast. Axial CT i mages through the cervical spine were obtained without intravenous contrast. Sagittal and coronal reformatted images were created from the data set. Coronal and sagittal reformatted images were creat ed from the data set. One or more of the following dose reduction techniques were used: Automated exposure control, adjustment of the mA and/or kV according to patient size, and/or iterative reconstr uction. Unless otherwise specified, incidental findings do not require dedicated imaging follow-up. [id number]. Comparison: 2009 FINDINGS: An intracranial bleed is not seen. Ventricles are normal in caliber. Mild to moderate low-density clear, deep and subcortical white matter probably ischemic changes secon rajani to small vessel disease. No extra-axial fluid collection. No fluid within the sinuses/mastoids No fracture or dislocation is seen involving the cervical spine. IMPRESSION: No acute intracranial abnormality noted A cervical fracture is not seen. If the patient continues to have symptoms to suggest acute [employer]/spinal pathology then MRI would be rec ommended
--- NOTE | 2024-08-05 11:10 | RAD REPORT ---
Procedure: Chest Single View HISTORY: Shortness of breath COMPARISON: 2022 FINDINGS: The lungs appear clear of acute infiltrate. No significant pleural effusion noted. The heart is normal size. IMPRESSION: No acute abnormality is displayed.
[2024-08-05 11:16] LABS: PT Prothrombin Time 11.4 SECONDS (9.4-12.5); PTT, Activated Partial Thromb 32.3 SECONDS (24.3-36.9); Protime INR 1.02
[2024-08-05 11:21] LABS: ALT/SGPT 23 U/L (13-56); AST/SGOT 16 U/L (15-37); Albumin 3.3 g/dL (3.4-5.0); Albumin/Globulin Ratio 0.9 (1.1-1.8); Alkaline Phosphatase 83 U/L (45-117); Anion Gap 9.1 mEq/L (5.0-15.0); BUN Blood Urea Nitrogen 14 mg/dL (7-18); Bicarbonate 27 mEq/L (21-32); Bilirubin Total 0.4 mg/dL (0.2-1.0); Globulin 3.5 g/dL (2.3-3.5); Glomerular Filtration Rate 73 ml/min (=/>90); Glucose Level 103 mg/dL (74-106); Magnesium 2.3 mg/dL (1.6-2.4); NT PRO-BNP 139 pg/mL (<450); Potassium 4.1 mEq/L (3.5-5.1); Protein, Total 6.8 g/dL (6.4-8.2); Sodium Level 140 mEq/L (136-145)
[2024-08-05 11:22] LABS: Bilirubin Direct < 0.2 mg/dL (0-0.2); Bilirubin Indirect, Calculated 0.2 mg/dL (0.2-0.8)
[2024-08-05 11:23] LABS: Troponin High Sensitivity 76.4 pg/mL (<58.9)
[2024-08-05] MEDS ORDERED: NA CHLORIDE 0.9% 250 ML ONE (13:02)
--- NOTE | 2024-08-05 13:09 | ER ---
Nurse's Notes [facility] Name: Magaly Osorio Age: 79 yrs Sex: Female : 1945 Arrival Date: 08/05/2024 Time: 10:06 Bed 7 Private MD: Diagnosis: Chest pain, unspecified;Dizziness and giddiness Presentation: 08/05 10:21 Chief complaint: Patient states: Bent over and fell forward 2 days ago, hit forehead on jl7 ground. Reports Headache and continued dizziness while walking. Coronavirus screen: At this time, the client does not indicate any symptoms associated with coronavirus-19. Ebola Screen: No symptoms or risks identified at this time. Initial Sepsis Screen: Does the patient meet any 2 criteria? No. Patient's initial sepsis screen is negative. Does the patient have a suspected source of infection? No. Patient's initial sepsis screen is negative. Risk Assessment: Do you want to hurt yourself or someone else? Patient reports no desire to harm self or others. Onset of symptoms was August 03, 2024. 10:21 Method Of Arrival: Ambulatory [facility] 10:21 Acuity: DEE 3 jl7 Triage Assessment: 10:25 General: Appears in no apparent distress. uncomfortable, Behavior is calm, cooperative, jl7 appropriate for age. Pain: Complains of pain in headache. Neuro: Level of Consciousness is awake, alert, obeys commands, Oriented to person, place, time, situation. Historical: - Allergies: 10:25 Aspirin; jl7 10:25 Benadryl; jl7 10:25 Tylenol-Codeine #3; jl7 - Home Meds: 11:15 albuterol sulfate 1.25 mg/3 mL Inhl nebu 3 mL 3 times per day [Active]; Arnuity Ellipta iw 100 mcg/actuation inhalation Blister, With Inhalation Device daily [Active]; pantoprazole 40 mg oral tablet, delayed release (enteric coated) daily [Active]; atorvastatin 20 mg oral tablet daily [Active]; omeprazole 20 mg Oral capsule,delayed release (e.c.) as needed [Active]; losartan 50 mg oral tablet daily [Active]; metoprolol tartrate 25 mg Oral tablet 2 times per day [Active]; - PMHx: 10:25 acid reflux; Asthma; blood clots (Unknown); COPD; Hyperlipidemia; Hypertensive disorder;jl7 - Immunization history:: Adult Immunizations unknown. - Infectious Disease History:: Denies. - Social history:: Smoking status: Patient denies any tobacco usage or history of. - Family history:: not pertinent. - Hospitalizations: : No recent hospitalization is reported. Screenin:08 [facility] ED Fall Risk Assessment (Adult) History of falling in the last 3 months, iw including since admission Yes- physiologic fall (2 pts) Confusion or Disorientation No (0 pts) Intoxicated or Sedated No (0 pts) Impaired Gait No (0 pts) Mobility Assist Device Used No (0 pt) Altered Elimination No (0 pt) Score/Fall Risk Level 0 - 2 = Low Risk Oriented to surroundings, Maintained a safe environment. Abuse screen: Denies threats or abuse. Nutritional screening: No deficits noted. Tuberculosis screening: No symptoms or risk factors identified. Assessment: 11:14 General: Appears in no apparent distress. Behavior is calm, cooperative. Pain: Denies iw pain. Neuro: Level of Consciousness is awake, alert, obeys commands, Oriented to person, place, time, situation, Moves all extremities. Full function. Cardiovascular: Patient's skin is warm and dry. Respiratory: Respiratory effort is even, unlabored. Derm: Skin is intact. Musculoskeletal: Range of motion: intact in all extremities. 13:00 Reassessment: Patient appears in no apparent distress at this time. Patient and/or iw family updated on plan of care and expected duration. Pain level reassessed. Patient is alert, oriented x 3, equal unlabored respirations, skin warm/dry/pink. Patient states feeling better. 15:36 Reassessment: Patient appears in no apparent distress at this time. Patient and/or iw family updated on plan of care and expected duration. Pain level reassessed. Patient is alert, oriented x 3, equal unlabored respirations, skin warm/dry/pink. 16:20 Reassessment: Patient and/or family updated on plan of care and expected duration. Pain rs5 level reassessed. Patient is alert, oriented x 3, equal unlabored respirations, skin warm/dry/pink. GI: Abdomen is round non-distended. : No signs and/or symptoms were reported regarding the genitourinary system. EENT: No signs and/or symptoms were reported regarding the EENT system. Vital Signs: 10:21 BP 162 / 81; Pulse 75; Resp 17; Temp 97.7; Pulse Ox 99% ; Weight 81.65 kg; Height 5 ft. jl7 1 in. ; 15:36 BP 163 / 69; Pulse 75; Resp 19; Pulse Ox 96% on R/A; Pain 0/10; iw 16:15 BP 155 / 72; Pulse 70; Resp 17; Pulse Ox 97% on R/A; rs5 10:21 Body Mass Index 34.01 (81.65 kg, 154.94 cm) jl7 15:36 Pain Scale: Adult iw ED Course: 10:10 Patient arrived in ED. im 10:13 Yakov Boyd MD is Attending Physician. rn 10:18 Jarek Jonas RN is Primary Nurse. rs5 10:25 Triage completed. jl7 10:25 Arm band placed on right wrist. jl7 10:30 Patient has correct armband on for positive identification. Provided Education on: iw labs. Client placed on continuous cardiac and pulse oximetry monitoring. NIBP monitoring applied. shelf filler on. 10:39 CT Head C Spine In Process Unspecified. EDMS 10:56 Initial lab(s) drawn, by me, sent to lab. Inserted saline lock: 22 gauge in right iw antecubital area, using aseptic technique. Blood collected. Flushed with 10 mL NS. 11:03 Chest Single View XRAY In Process Unspecified. EDMS 13:08 Jamal Clark MD is Hospitalizing Provider. rn 16:20 No provider procedures requiring assistance completed. rs5 16:20 Patient admitted, IV remains in place. rs5 Administered Medications: 13:18 Drug: NS 0.9% IV 250 ml IV at calculated rate once; to be given as a bolus over 30 iw minutes Route: IV; Rate: calculated rate; Site: right antecubital; 15:37 Follow up: IV Status: Completed infusion iw Medication: 11:08 VIS not applicable for this client. iw Outcome: 13:08 Decision to Hospitalize by Provider. rn 16:20 Admitted to Med/surg accompanied by emmett, rs5 16:20 Condition: stable 16:20 Instructed on the need for admit, Demonstrated understanding of instructions, 16:23 Patient left the ED. rs5 Signatures: Dispatcher [employer] EDMS Leona Nava RN RN Yakov Trevino MD MD rn Leal, Taras, RN RN jl7 Jarek Jonas, RN RN rs5 [place]
--- NOTE | 2024-08-05 13:09 | EDPHYS ---
Physician Documentation [facility] Name: Magaly Osorio Age: 79 yrs Sex: Female : 1945 Arrival Date: 08/05/2024 Time: 10:06 Bed 7 Private MD: ED Physician Yakov Boyd HPI: 08/05 11:38 This 79 yrs old Female presents to ER via Ambulatory with complaints of Head Injury rn With LOC-Adult. 11:38 The patient has experienced syncope. Onset: The symptoms/episode began/occurred 2 rn day(s) ago. Duration: This was a single episode. Associated injury: Head/face:. Current symptoms: Dizziness. The patient has not experienced similar symptoms in the past. Patient reports fall 2 days ago, got lightheaded when bending over, had syncopal episode, was trapped briefly underneath the bed. Reports persistent dizziness since then, worse with change in position. No vomiting. No chest pain or shortness of breath. No vomiting or diarrhea.. Historical: - Allergies: 10:25 Aspirin; jl7 10:25 Benadryl; jl7 10:25 Tylenol-Codeine #3; jl7 - Home Meds: 11:15 albuterol sulfate 1.25 mg/3 mL Inhl nebu 3 mL 3 times per day [Active]; Arnuity Ellipta iw 100 mcg/actuation inhalation Blister, With Inhalation Device daily [Active]; pantoprazole 40 mg oral tablet, delayed release (enteric coated) daily [Active]; atorvastatin 20 mg oral tablet daily [Active]; omeprazole 20 mg Oral capsule,delayed release (e.c.) as needed [Active]; losartan 50 mg oral tablet daily [Active]; metoprolol tartrate 25 mg Oral tablet 2 times per day [Active]; - PMHx: 10:25 acid reflux; Asthma; blood clots (Unknown); COPD; Hyperlipidemia; Hypertensive disorder;jl7 - Immunization history:: Adult Immunizations unknown. - Infectious Disease History:: Denies. - Social history:: Smoking status: Patient denies any tobacco usage or history of. - Family history:: not pertinent. - Hospitalizations: : No recent hospitalization is reported. ROS: 11:38 Constitutional: Negative for fever, chills, and weight loss, Neck: Negative for injury, rn pain, and swelling, Cardiovascular: Negative for chest pain, palpitations, and edema, Respiratory: Negative for shortness of breath, cough, wheezing, and pleuritic chest pain, Abdomen/GI: Negative for abdominal pain, nausea, vomiting, diarrhea, and constipation, Back: Negative for injury and pain, MS/Extremity: Negative for injury and deformity, Skin: Negative for injury, rash, and discoloration, Neuro: Negative for weakness, numbness, tingling, and seizure, Exam: 11:36 ECG was reviewed by the Attending Physician. rn 11:38 Constitutional: This is a well developed, well nourished patient who is awake, alert, rn and in no acute distress. Head/Face: Normocephalic, atraumatic. Neck: No midline tenderness Cardiovascular: Regular rate and rhythm. No pulse deficits. Respiratory: Speaking full sentences, mild tachypnea Abdomen/GI: Soft, nontender MS/ Extremity: Pulses equal, no cyanosis. Neurovascular intact. Full, normal range of motion. Equal circumference. Neuro: Awake and alert, GCS 15, oriented to person, place, time, and situation. Motor strength 5/5 in all extremities. Sensory grossly intact. Vital Signs: 10:21 BP 162 / 81; Pulse 75; Resp 17; Temp 97.7; Pulse Ox 99% ; Weight 81.65 kg; Height 5 ft. jl7 1 in. ; 15:36 BP 163 / 69; Pulse 75; Resp 19; Pulse Ox 96% on R/A; Pain 0/10; iw 16:15 BP 155 / 72; Pulse 70; Resp 17; Pulse Ox 97% on R/A; rs5 10:21 Body Mass Index 34.01 (81.65 kg, 154.94 cm) jl7 15:36 Pain Scale: Adult iw MDM: 10:13 Medical Screening Exam initiated rn 13:07 Differential Diagnosis: cardiac arrhythmia, Myocardial infarction, angina. Data rn reviewed: vital signs, nurses notes, lab test result(s), EKG, radiologic studies, plain films, and as a result, I will admit patient. Consideration of Admission/Observation Patient was admitted/placed on observation. Escalation of care including admission/observation considered. Care significantly affected by the following chronic conditions: Hypertension, Chronic Obstructive Pulmonary Disease. Counseling: I had a detailed discussion with the patient and/or guardian regarding the historical points, exam findings, and any diagnostic results supporting the discharge/admit diagnosis, the presence of at least one elevated blood pressure reading (>120/80) during this emergency department visit, lab results, radiology results, the need for further work-up and treatment in the hospital. ED course: Patient overall feels better, able to ambulate to bathroom without assistance. No new current dizziness. Elevated troponin. Initially patient denied chest pain but now states over the last 2 days has been experiencing chest pressure and tightness with a sore feeling that is substernal and episodic. Will admit to Dr. Clark for further evaluation.. 08/05 10:46 Order name: Basic Metabolic Panel; Complete Time: 11:59 rn 08/05 10:46 Order name: CBC with Diff; Complete Time: : rn 08/05 10:46 Order name: Hepatic Function; Complete Time: : rn 08/05 10:46 Order name: Magnesium; Complete Time: 11: rn 08/05 10:46 Order name: Protime (+inr); Complete Time: 11: rn 08/05 10:46 Order name: Ptt, Activated; Complete Time: 11: rn 08/05 10:46 Order name: Troponin High Sensitivity; Complete Time: 11: rn 08/05 10:46 Order name: Urinalysis w/ reflexes; Complete Time: 13:25 rn 08/05 10:46 Order name: BNP; Complete Time: 11: rn 08/05 16:14 Order name: Basic Metabolic Panel EDMD 08/05 16:14 Order name: Basic Metabolic Panel EDMD 08/05 16:14 Order name: CBC with Automated Diff EDMD 08/05 16:14 Order name: CBC with Automated Diff EDMD 08/05 16:14 Order name: Troponin High Sensitivity EDMD 08/05 16:14 Order name: Troponin High Sensitivity EDMD 08/05 16:14 Order name: Troponin High Sensitivity EDMD 08/05 10:29 Order name: CT Head C Spine; Complete Time: 11: rn 08/05 10:46 Order name: Chest Single View XRAY; Complete Time: 11: rn 08/05 16:14 Order name: CONS Physician Consult EDMD 08/05 16:14 Order name: EKG Electrocardiogram EDMD 08/05 16:14 Order name: EKG Electrocardiogram EDMD 08/05 16:14 Order name: EKG Electrocardiogram EDMD 08/05 16:14 Order name: EKG Electrocardiogram EDMD 08/05 10:46 Order name: Cardiac monitoring; Complete Time: 11:08 rn 08/05 10:46 Order name: EKG - Nurse/Tech; Complete Time: 11:08 rn 08/05 10:46 Order name: IV Saline Lock; Complete Time: 10:56 rn 08/05 10:46 Order name: Labs collected and sent; Complete Time: 10:56 rn 08/05 10:46 Order name: O2 Per Protocol; Complete Time: 11:00 rn 08/05 10:46 Order name: O2 Sat Monitoring; Complete Time: 11:00 rn EC:36 Rate is 68 beats/min. Rhythm is regular. QRS [place] is Normal. LA interval is normal. QRS rn interval is prolonged at 132 msec. QT interval is normal. No Q waves. T waves are Normal. No ST changes noted. Clinical impression: NSR w/ Non-specific ST/T Changes. Interpreted by me. Reviewed by me. Administered Medications: 13:18 Drug: NS 0.9% IV 250 ml IV at calculated rate once; to be given as a bolus over 30 iw minutes Route: IV; Rate: calculated rate; Site: right antecubital; 15:37 Follow up: IV Status: Completed infusion iw Disposition Summary: 08/05/24 13:08 Hospitalization Ordered Notes: Hospitalization Status: Observation rn Provider: Jamal Clark rn Location: Telemetry/MedSurg (observation) rn Condition: Stable rn Problem: new rn Symptoms: have improved rn Bed/Room Type: Standard rn Room Assignment: 205(08/05/24 15:20) bc6 Diagnosis - Chest pain, unspecified rn - Dizziness and giddiness rn Forms: - Medication Reconciliation Form rn - SBAR form rn - Leadership Thank You Letter rn Signatures: Dispatcher [employer] EDMS Leona Nava, RN RN iw Yakov Boyd MD MD rn Leal, Jahala, RN RN jl7 [place] bc6 Corrections: (The following items were deleted from the chart) 10:30 10:30 Head C Spine MPR Wo Con+CT.RAD.BRZ ordered. EDMS EDMS 10:46 10:46 BASIC METABOLIC PANEL+C.LAB.BRZ ordered. EDMS EDMS 10:47 10:46 CBC+H.LAB.BRZ ordered. EDMS EDMS 10:47 10:46 HEPATIC FUNCTION+C.LAB.BRZ ordered. EDMS EDMS 10:47 10:46 MAGNESIUM+C.LAB.BRZ ordered. EDMS EDMS 10:47 10:46 PROTIME (+INR)+COAG.LAB.BRZ ordered. EDMS EDMS 10:47 10:46 PTT, ACTIVATED+COAG.LAB.BRZ ordered. EDMS EDMS 10:47 10:46 Troponin High Sensitivity+C.LAB.BRZ ordered. EDMS EDMS 10:47 10:46 Urinalysis+U.LAB.BRZ ordered. EDMS EDMS 10:47 10:46 PROBNP+C.LAB.BRZ ordered. EDMS EDMS 10:47 10:47 Chest Single View+RAD.RAD.BRZ ordered. EDMS EDMS 15:20 13:08 rn bc6
[2024-08-05 13:14] LABS: Specific Gravity 1.013 (1.005-1.030); Sqamous Epithelial <5 /HPF (None Seen); Urine Bacteria None Seen /HPF (<20); Urine Bilirubin NEGATIVE (Negative); Urine Blood Negative (Negative); Urine Clarity Clear (Clear); Urine Color Light-Yellow (Yellow); Urine Culture Reflex Order NOT NEEDED; Urine Glucose NEGATIVE (Negative); Urine Ketones NEGATIVE (Negative); Urine Microscopic Reflex YN ORDER UMIC; Urine Mucus Slight /HPF (None Seen); Urine Nitrite NEGATIVE (Negative); Urine Protein NEGATIVE (Negative); Urine RBC <5 /HPF (None Seen); Urine Urobilinogen Normal (Normal); Urine WBC None Seen /HPF (<5)
[2024-08-05] MEDS ORDERED: ONDANSETRON 4 MG/2 ML VIAL IV PRN (16:11)
[2024-08-05 17:24] VITALS: BMI 34.0
[2024-08-05 22:30] VITALS: O2SAT 96
--- NOTE | 2024-08-05 22:53 | P.SSS ---
Patient History Date of Service: 08/05/24 Reason for admission: passed out two days ago History of Present Illness: Magaly has HTN about two days ago she got dizzy and found herself on the floor. She did not have chest pain. She comes here as she is still lightheaded when she gets up. Allergies acetaminophen [From Tylenol-Codeine #3] Allergy (Unverified 08/05/24 17:11) Unknown aspirin Allergy (Verified 08/05/24 17:11) Unknown codeine [From Tylenol-Codeine #3] Allergy (Unverified 12/15/16 12:24) Unknown diphenhydramine [From Benadryl] Allergy (Unverified 12/15/16 12:24) Unknown Home Medications: Alpha Lipoic Acid 600 mg PO DAILY 08/05/24 Fluticasone Furoate [Arnuity Ellipta] 1 puff IH DAILY 08/05/24 Losartan Potassium 100 mg PO DAILY 08/05/24 Metoprolol Tartrate 25 mg PO BID 08/05/24 Pantoprazole Sodium [Protonix] 40 mg PO DAILY 08/05/24 - Past Medical/Surgical History Has patient received pneumonia vaccine in the past: Yes Diabetic: No -: "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 -: Vented with airway failure 11/05/12 -: pul embolus 11/16/2012 -: COPD -: arthritis -: Left bundal branch -: HTN -: 11/05/12 vented - Family History Brother -: Cancer Father -: Hypertension Sister -: Heart disease, Diabetes Mother -: Heart disease, Hypertension - Social History Smoking Status: Former smoker Alcohol use: No CD- Drugs: No Caffeine use: Yes Place of Residence: Home Review of Systems 10-point ROS is otherwise unremarkable Physical Examination - Vital Signs Temperature: 97.7 F Blood Pressure: 163/69 Pulse: 75 Respirations: 19 Pulse Ox (%): 97 - Physical Exam General: Alert, In no apparent distress HEENT: Atraumatic, PERRLA, Mucous membr. moist/pink, EOMI, Sclerae nonicteric Neck: Supple, 2+ carotid pulse no bruit, No LAD, Without JVD or thyroid abnormality Respiratory: Clear to auscultation bilaterally, Normal air movement Cardiovascular: Regular rate/rhythm, Normal S1 S2 Gastrointestinal: Normal bowel sounds, No tenderness Musculoskeletal: No tenderness Integumentary: No rashes Neurological: Normal gait, Normal speech, Normal strength at 5/5 x4 extr, Normal tone, Normal affect Lymphatics: No axilla or inguinal lymphadenopathy - Studies Laboratory Data (last 24 hrs) 08/05/24 08/05/24 08/05/24 10:54 10:54 10:54 WBC 5.30 Hgb 12.8 Hct 39.0 Plt Count 206 PT 11.4 INR 1.02 APTT 32.3 Sodium 140 Potassium 4.1 BUN 14 Creatinine 0.81 Glucose 103 Magnesium 2.3 Total Bilirubin 0.4 AST 16 ALT 23 Alkaline Phosphatase 83 - Diagnosis (Problem(s)) (1) Syncope Current Visit: Yes Status: Acute Plan: card consult trop mild high may need st test outpatient. plavix one daily. (2) Orthostatic hypotension Current Visit: Yes Status: Acute Plan: possible will check. - Disposition Disposition: ROUTINE DISCHARGE
[2024-08-06] MEDS ORDERED: ACETAMINOPHEN 500 MG TAB PO PRN (00:49)
[2024-08-06 05:51] LABS: Absolute Basophils 0.1 K/uL (0-0.5); Absolute Eosinophils 0.3 K/uL (0-0.5); Absolute Lymphocytes (CBC) 2.1 K/uL (0.7-4.9); Absolute Monocytes 0.9 K/uL (0.1-1.3); Absolute Neutrophil 3.5 K/uL (1.8-8.0); Basophils % 1.2 % (0-1.3); Hematocrit 36.6 % (36.0-45.0); Hemoglobin 12.3 g/dL (12.0-15.0); Lymphocytes % 31.1 % (15.3-44.8); MCH 30.8 pg (27.0-35.0); MCHC 33.7 g/dL (32.0-36.0); MCV 91.3 fL (80-100); MPV 8.4 fL (7.6-11.3); Monocytes % 12.5 % (3.3-12.3); Neutrophils % 50.2 % (41.7-73.7); Nucleated Red Blood Cells % 0.1 % (0-0); Platelets 213 thou/uL (152-406); RBC Red Blood Cell Count 4.01 M/uL (3.86-4.86); Red Cell Distribution Width 13.8 % (12.1-15.2)
[2024-08-06 06:21] LABS: Anion Gap 8.3 mEq/L (5.0-15.0); Potassium 4.3 mEq/L (3.5-5.1)
[2024-08-06] MEDS: PANTOPRAZOLE 40MG TABLET PO SCH (07:30)
[2024-08-06] MEDS: METOPROLOL TAR 25 MG TAB PO SCH (08:18)
[2024-08-06] MEDS: LOSARTAN POTASSIUM 50 MG TABLET PO SCH (08:19)
[2024-08-06] MEDS: ENOXAPARIN 40 MG/0.4 ML SQ SCH (08:25)
[2024-08-06] MEDS: CLOPIDOGREL 75 MG TABLET PO SCH (09:00)
[2024-08-06] MEDS ORDERED: ASPIRIN EC 81 MG TAB PO SCH (09:00)
--- NOTE | 2024-08-06 19:19 | P.PN ---
Subjective Date of Service: 08/06/24 Chief Complaint: passed out two days ago Subjective: Improving SHE WAS ASYMPTOMATIC ON ADMISSION AND IS STILL THE SAME. SHE HAS NO CHEST PAIN. SHE WAS ABLE TO STAND AND BP DID NOT DROP LOWER. SHE WAS TO SEE SHELTER DIRECTOR TODAY. SHE WILL SEE IN AM NOW. I WAS GOING TO SEND HER HOME AND FU WITH DR. MODI HE IS HE REGULAR DOCTOR. HER CE ARE MILD HIGH AND MAY NOT BE OF ANY CONCERN. I SAW HER YESTERDAY ABOUT 5 PM AND TODAY AT 4 PM. I CALLED THE NURSE IN CHARGE THIS AM AND TOLD HER TO LET THE PATIENT KNOW THAT I WILL BE TODAY ABOUT 5 PM. Review of Systems 10-point ROS is otherwise unremarkable Physical Examination - Vital Signs Temperature: 99.1 F Blood Pressure: 139/71 Pulse: 69 Respirations: 20 Pulse Ox (%): 95 - Physical Exam General: Alert, In no apparent distress HEENT: Atraumatic, PERRLA, EOMI Neck: Supple, JVD not distended Respiratory: Clear to auscultation bilaterally, Normal air movement Cardiovascular: Regular rate/rhythm, Normal S1 S2 Gastrointestinal: Normal bowel sounds, No tenderness Musculoskeletal: No tenderness Integumentary: No rashes Neurological: Normal speech, Normal tone, Normal affect Lymphatics: No axilla or inguinal lymphadenopathy - Studies Medications List Reviewed: Yes Assessment And Plan - Current Problems (Diagnosis) (1) Syncope Current Visit: Yes Status: Acute Plan: card consult trop mild high may need st test outpatient. plavix one daily. Syncope was two days before admission. She has no signs of any neurological deficit. She will see caradiologist in am before discharge. I will also order MRI of brain after I see her in am as we can't do MRI on the weekend here. Yesterday daughter was at bedside and today the grand daughter. Granddaughter was verbally abusive to me. She told me that I was not a concerned physician and as I advised stress test, she said she does not need a stress test but needs a sonogram. She accused me that I saw her but I did not examine her. I asked her if she was there to watch me and she said no. I told her to shut up and stop insulting me as I was an MD who studied for 14 years and nichole experience for 30 years. I know what to do with most patients. I came to examine her on New Year's nicole and on the 's holiday. A doctor who is not concerned will not do so. Magaly is a good person but she refused to take Plavix that I ordered as she can't take aspirin. Because of insulting attitude of the grand daughter, I will have to let Magaly find a new doctor. I can't take care of patient whose close family has no respect to other people mainly her doctor. (2) Orthostatic hypotension Current Visit: Yes Status: Acute Plan: possible will check.
[2024-08-07 08:33] VITALS: BP 138/67
--- NOTE | 2024-08-07 10:51 | P.CNS ---
Date of Consult: 08/07/24 Chief Complaint: passed out two days ago History of Present Illness: Patient with PMH of HTN, presented with fall after bending down to get something from the floor, she denies having chest pain, no palpitations, no syncope, she felt dizzy when she bended down and she did not have her medications for that morning, no other cardiac symptoms. Allergies aspirin Allergy (Verified 08/05/24 17:11) Unknown codeine Allergy (Verified 08/06/24 08:11) Unknown diphenhydramine [From Benadryl] Allergy (Verified 08/06/24 08:11) Unknown Home medications list reviewed: Yes Home Medications: Alpha Lipoic Acid 600 mg PO DAILY 08/05/24 Fluticasone Furoate [Arnuity Ellipta] 1 puff IH DAILY 08/05/24 Losartan Potassium 100 mg PO DAILY 08/05/24 Metoprolol Tartrate 25 mg PO BID 08/05/24 Pantoprazole Sodium [Protonix] 40 mg PO DAILY 08/05/24 Atorvastatin Calcium [Lipitor] 20 mg PO BEDTIME 08/06/24 - Past Medical/Surgical History Diabetic: No -: "[facility] diabetic" was on metformin for a while -: Vented with airway failure 11/05/12 -: pul embolus 11/16/2012 -: COPD -: arthritis -: Left bundal branch -: HTN -: 11/05/12 vented - Family History Brother Medical History: Cancer Father Medical History: Hypertension Sister Medical History: Heart disease, Diabetes Mother Medical History: Heart disease, Hypertension - Social History Smoking Status: Former smoker Alcohol use: No CD- Drugs: No Caffeine use: Yes Place of Residence: Home Review of Systems 10-point ROS is otherwise unremarkable Physical Examination Temp Pulse Resp BP Pulse Ox 98.6 F 69 16 138/67 96 08/07/24 08:00 08/07/24 08:00 08/07/24 08:00 08/07/24 08:00 08/07/24 08:00 General: Alert, In no apparent distress HEENT: Atraumatic, PERRLA, Mucous membr. moist/pink, EOMI, Sclerae nonicteric Neck: Supple, 2+ carotid pulse no bruit, No LAD, Without JVD or thyroid abnormality Respiratory: Clear to auscultation bilaterally, Normal air movement Cardiovascular: Regular rate/rhythm, Normal S1 S2 Gastrointestinal: Normal bowel sounds, No tenderness Musculoskeletal: No tenderness Integumentary: No rashes Neurological: Normal gait, Normal speech, Normal tone, Normal affect Lymphatics: No axilla or inguinal lymphadenopathy - Problems (1) Type 2 MS (myocardial infarction) Current Visit: Yes Status: Acute Plan: Patient troponin mild elevated and patient BP was high at time she presented, no EKG changes and denies having chest pain, outpatient follow up for stress test. (2) HTN (hypertension) Current Visit: Yes Status: Acute Plan: continue metoprolol and losartan. (3) Syncope Current Visit: Yes Status: Acute Plan: most likely Orthostatic continue her BP medications continue to follow up as outpatient for possible event monitor if not done recently patient had an echo recently in the office that was normal.
--- NOTE | 2024-08-07 10:57 | RAD REPORT ---
EXAMINATION: MRI BRAIN WITHOUT CONTRAST CLINICAL INDICATION: Syncope TECHNIQUE: Multiplanar multisequence MR images of the brain were obtained without intravenous contras t. Unless otherwise specified, incidental findings do not require dedicated imaging follow-up. COMPARISON: August 05, [address] FINDINGS: Moderate abnormal signal within periventricular, white matter probably ischemic changes secondary to small vessel disease.. Mild deep and subcortical white matter. Diffusion weighted/ADC mapping does not demonstrate evidence of an acute infarction. Ventricles are normal caliber. No extra-axial fluid collection. No fluid within the sinuses/mastoid seen IMPRESSION: No acute intracranial abnormalities displayed
[2024-08-07 12:22] VITALS: TEMP 97.9
[2024-08-07] MEDS ORDERED: ATORVASTATIN 20 MG TAB PO SCH (21:00)
--- NOTE | 2024-08-07 21:53 | P.DS ---
Admission Date: 08/06/24 Discharge Date: 08/07/24 Disposition: ROUTINE DISCHARGE Discharge Condition: FAIR Reason for Admission: passed out two days ago - Problems (1) Syncope Status: Acute (2) Orthostatic hypotension Status: Acute Brief History of Present Illness: Magaly has HTN about two days ago she got dizzy and found herself on the floor. She did not have chest pain. She comes here as she is still lightheaded when she gets up. Hospital Course: SHE WAS WAITING FOR DR. DUEÑAS. HE SAW HER TODAY. THERE IS NOTHING ACUTE GOING ON. HER MRI OF BRAIN IS NEG ALSO. CRYSTAL SEE DR. DUEÑAS IN OFFICE. SHE REFUSES TO TAKE PLAVIX. SHE IS ALLERGIC TO ASPIRIN. UNTIL CORONARY ISSUES ARE RULED OUT SHE SHOULD TAKE IT BUT SHE DOES NOT WANT. SHE IS STABLE AT DISCHARGE. Vital Signs/Physical Exam: Temp Pulse Resp BP Pulse Ox 97.9 F 69 16 138/67 96 08/07/24 12:00 08/07/24 08:00 08/07/24 12:00 08/07/24 08:00 08/07/24 12:00 Laboratory Data at Discharge: WBC 6.90 thou/uL (4.3-10.9) 08/06/24 05:25 Hgb 12.3 g/dL (12.0-15.0) 08/06/24 05:25 Hct 36.6 % (36.0-45.0) 08/06/24 05:25 Plt Count 213 thou/uL (152-406) 08/06/24 05:25 PT 11.4 SECONDS (9.4-12.5) 08/05/24 10:54 INR 1.02 08/05/24 10:54 APTT 32.3 SECONDS (24.3-36.9) 08/05/24 10:54 Sodium 139 mEq/L (136-145) 08/06/24 05:25 Potassium 4.3 mEq/L (3.5-5.1) 08/06/24 05:25 BUN 20 mg/dL (7-18) H 08/06/24 05:25 Creatinine 0.81 mg/dL (0.55-1.02) 08/06/24 05:25 Glucose 105 mg/dL (74-106) 08/06/24 05:25 Magnesium 2.3 mg/dL (1.6-2.4) 08/05/24 10:54 Total Bilirubin 0.4 mg/dL (0.2-1.0) 08/05/24 10:54 AST 16 U/L (15-37) 08/05/24 10:54 ALT 23 U/L (13-56) 08/05/24 10:54 Alkaline Phosphatase 83 U/L (45-117) 08/05/24 10:54 Home Medications: Alpha Lipoic Acid 600 mg PO DAILY 08/05/24 Fluticasone Furoate [Arnuity Ellipta] 1 puff IH DAILY 08/05/24 Losartan Potassium 100 mg PO DAILY 08/05/24 Metoprolol Tartrate 25 mg PO BID 08/05/24 Pantoprazole Sodium [Protonix] 40 mg PO DAILY 08/05/24 Atorvastatin Calcium [Lipitor*] 20 mg PO BEDTIME 08/06/24 Followup: Jamal Clark MD [Primary Care Provider] - 1 Week Michael Dueñas MD [ACTIVE - CAN ADMIT] - 1 Week
--- NOTE | 2024-08-08 12:49 | EKG ---
Test Date: 2024-08-05 Test Time: 11:04:42 Diet Kitchen Cook: MICHELLE MEASUREMENT RESULTS: Intervals: Rate: 68 MD: 168 QRSD: 132 QT: 418 QTc: 444 [place]: P: 35 MD: 168 QRS: -18 T: 111 INTERPRETIVE STATEMENTS: Normal sinus rhythm Left bundle branch block Abnormal ECG Compared to ECG 09/03/2023 04:32:44 No significant changes Electronically Signed On 08-08-24 12:47:52 DRY MIXER by Michael Merchant
== END 2024-08-07 13:28 | disposition home or self-care (01) | DRG 281 ==
LOC: ER 10:06 → 2ND 13:12 → OBSVTOIN 08-06 19:09
PROVIDERS: ADMIT Internal Medicine; ATTEND Internal Medicine
DX: I95.1 Orthostatic hypotension (principal); S06.9X9A Unspecified intracranial injury with loss of consciousness of unspecified duration, initial encounter; I21.A1 Myocardial infarction type 2; K21.9 Gastro-esophageal reflux disease without esophagitis; J44.9 Chronic obstructive pulmonary disease, unspecified; E78.5 Hyperlipidemia, unspecified; I10 Essential (primary) hypertension; D72.829 Elevated white blood cell count, unspecified; Z88.6 Allergy status to analgesic agent; Z88.5 Allergy status to narcotic agent; Z88.8 Allergy status to other drugs, medicaments and biological substances; Z79.899 Other long term (current) drug therapy; Z86.711 Personal history of pulmonary embolism; Z87.891 Personal history of nicotine dependence; W18.30XA Fall on same level, unspecified, initial encounter; Y99.9 Unspecified external cause status; Y93.9 Activity, unspecified; Y92.009 Unspecified place in unspecified non-institutional (private) residence as the place of occurrence of the external cause
CPT/HCPCS: 36415; 70450; 70551; 71045; 72125; 80048; 80076; 81001; 83735; 83880; 84484; 85025; 85610; 85730; 93005; 96365; 96366; 99285; G0378; J1650; J7050

== ENCOUNTER 2024-09-08 18:51 | Observation (INO) | payer OTHER ==
--- OUTSIDE RECORDS SUMMARY | 2024-09-08 18:54 | XMS REPORT | Continuity of Care Document ---
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 [...] 34.0 g/dL 31.6-35.1 RDW-SD (test code = 33094-3) 40.3 fL 39-49.9 RDW-CV (test code = 788-0) 12.2 % 12-15.5 PLT (test code = 777-3) See_Comment [Automated messa ge] The system which generated this result transmitted reference range: 166 - 358 10*3/?L. The reference range was not used to interpret this result as normal/abnormal. MPV (test code = 26077-5) 10.4 fL 9.5-12.9 NRBC/100 WBC (test code = 5102387117) See_Comment [Automated me ssage] The system which generated this result transmitted reference range: 0.0 - 10.0 /100 WBCs. The reference range was not used to interpret this result as normal/abnormal. NRBC x10^3 (test code = 8620237870) <0.01 See_Comment [Automated messa ge] The system which generated this result transmitted reference range: 10*3/?L. The reference range was not used to interpret this result as normal/abnormal. GRAN MAT (NEUT) % (test code = 770-8) 49.0 % IMM GRAN % (test code = 5631151157) 0.10 % LYMPH % (test code = 736-9) 35.0 % MONO % (test code = 5905-5) 13.5 % EOS % (test code = 713-8) 1.7 % BASO % (test code = 706-2) 0.7 % GRAN MAT x10^3(ANC) (test code = 3680319021) 3.38 10*3/uL 1.88-7.09 IMM GRAN x10^3 (test code = 3772060243) <0.03 0-0.06 LYMPH x10^3 (test code = 731-0) 2.42 10*3/uL 1.32-3.29 MONO x10^3 (test code = 742-7) 0.93 10*3/uL 0.33-0.92 H EOS x10^3 (test code = 711-2) 0.12 10*3/uL 0.03-0.39 BASO x10^3 (test code = 704-7) 0.05 10*3/uL 0.01-0.07 Lab Interpretation (test code = 88389-6) Abnormal [facility]
[2024-09-08 20:17] LABS: Absolute Basophils 0.1 K/uL (0-0.5); Absolute Lymphocytes (CBC) 1.5 K/uL (0.7-4.9); Absolute Monocytes 0.9 K/uL (0.1-1.3); Basophils % 0.7 % (0-1.3); Eosinophils % 0.3 % (0-4.4); Hematocrit 39.9 % (36.0-45.0); Hemoglobin 13.9 g/dL (12.0-15.0); Lymphocytes % 14.2 % (15.3-44.8); MCHC 34.8 g/dL (32.0-36.0); MCV 88.9 fL (80-100); MPV 8.6 fL (7.6-11.3); Monocytes % 8.2 % (3.3-12.3); Neutrophils % 76.6 % (41.7-73.7); Nucleated Red Blood Cells % 0.2 % (0-0); Platelets 297 thou/uL (152-406); RBC Red Blood Cell Count 4.49 M/uL (3.86-4.86); Red Cell Distribution Width 13.5 % (12.1-15.2)
--- NOTE | 2024-09-08 20:22 | RAD REPORT ---
EXAM: Chest Single View HISTORY: syncope COMPARISON: 08/05/2024 FINDINGS: LUNGS/PLEURA: The lungs are clear. No pleural effusions or pneumothorax. No pulmonary edema. MEDIASTINUM: The mediastinal silhouette is within normal limits. CARDIAC: Stable size and configuration. UPPER ABDOMEN: No significant abnormality. BONES: No acute abnormality. LINES/TUBES/OTHER: N/A IMPRESSION: No evidence of acute cardiopulmonary disease.
[2024-09-08 20:30] LABS: PTT, Activated Partial Thromb 28.7 SECONDS (24.3-36.9); Protime INR 1.05
[2024-09-08 20:36] LABS: ALT/SGPT 26 U/L (13-56); AST/SGOT 16 U/L (15-37); Albumin 3.5 g/dL (3.4-5.0); Albumin/Globulin Ratio 0.9 (1.1-1.8); Alkaline Phosphatase 94 U/L (45-117); Anion Gap 6.6 mEq/L (5.0-15.0); BUN Blood Urea Nitrogen 21 mg/dL (7-18); Bicarbonate 31 mEq/L (21-32); Bilirubin Total 0.3 mg/dL (0.2-1.0); Globulin 3.8 g/dL (2.3-3.5); Glomerular Filtration Rate 56 ml/min (=/>90); Glucose Level 134 mg/dL (74-106); Magnesium 2.5 mg/dL (1.6-2.4); Potassium 4.6 mEq/L (3.5-5.1); Protein, Total 7.3 g/dL (6.4-8.2); Sodium Level 138 mEq/L (136-145); Troponin High Sensitivity 35.1 pg/mL (<58.9)
[2024-09-08 20:38] LABS: Bilirubin Direct < 0.2 mg/dL (0-0.2); Bilirubin Indirect, Calculated 0.1 mg/dL (0.2-0.8)
--- NOTE | 2024-09-08 21:34 | RAD REPORT ---
EXAMINATION: CT HEAD WITHOUT CONTRAST CLINICAL INDICATION: Female, 79 years old.Headache;Syncope TECHNIQUE: Axial CT images from the skull base to the vertex without intravenous contrast. Coronal an d sagittal reformatted images were created from the data set. One or more of the following dose reduction techniques were used: Automated exposure control, adjustment of the mA and/or kV according to patient size, and/or iterative reconstruction. Unless otherwise specified, incidental findings do not require dedicated imaging follow-up. [id number]. COMPARISON: 08/05/2024 FINDINGS: INTRACRANIAL: No acute intracranial hemorrhage. No hydrocephalus. No mass effect or midline shift. Mo derate chronic small vessel ischemic changes.Age advanced cerebral atrophy. VASCULATURE: No visualized abnormalities in the arteries or dural venous sinuses. SCALP/SKULL: No significant soft tissue or osseous abnormalities. SINUSES: The visualized paranasal sinuses and mastoid air cells are predominantly clear. IMPRESSION: No acute intracranial abnormality.
--- NOTE | 2024-09-08 21:41 | RAD REPORT ---
EXAMINATION: CTA NECK CLINICAL INDICATION: Female, 79 years old. PAIN TECHNIQUE: Axial CT images were obtained from the aortic arch to the skull base after intravenous con trast utilizing angiographic protocol with 3D post-processing (maximum intensity projection images, volume rendered images and/or shaded surface rendered images). One or more of the following dose redu ction techniques were used: Automated exposure control, adjustment of the mA and/or kV according to patient size, and/or iterative reconstruction. Unless otherwise specified, incidental findings do not require dedicated imaging follow-up. [id number]. NASCET criteria used. Mild 0-49% stenosis Moderate 50-69% stenosis Severe 70-99% stenosis COMPARISON: No prior exam. FINDINGS: AORTA: The imaged aortic arch is normal. CCA: The common carotid arteries are patent and normal in caliber. ICA/ECA: Mild to moderate narrowing of the left ICA secondary to calcified plaque. This is estimated at 50%. The right ICA is patent. Both ECA's are patent. VERTEBRAL: Left dominant vertebral artery. SOFT TISSUE: No significant neck soft tissue abnormalities. The visualized lung apices are clear. 3D images confirm these findings. IMPRESSION: Mild to moderate stenosis of the left proximal ICA. The remaining arteries are patent. No dissection.
--- NOTE | 2024-09-08 21:43 | RAD REPORT ---
EXAMINATION: CTA HEAD CLINICAL INDICATION: Female, 79 years old. Syncope;Aphasia TECHNIQUE: Axial CT images were obtained through the head after intravenous contrast utilizing angiog raphic protocol with 3D post-processing (maximum intensity projection images, volume rendered images and/or shaded surface rendered images). One or more of the following dose reduction technique s were used: Automated exposure control, adjustment of the mA and/or kV according to patient size, and/or iterative reconstruction. Unless otherwise specified, incidental findings do not require dedic ated imaging follow-up. COMPARISON: No prior exam. FINDINGS: ICA: The petrous, cavernous, and supraclinoid segments of the bilateral internal carotid arteries are normal. The ophthalmic artery origins are visualized and normal. The posterior communicating arteries are patent. GABRIELE: Anterior cerebral arteries are normal bilaterally. The anterior communicating artery is patent. MCA: Middle cerebral arteries are normal bilaterally. 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 Vertebrobasilar: The vertebral arteries are patent. The basilar artery is normal in appearance. 3D images confirm these findings. IMPRESSION: No occlusion, aneurysm, or hemodynamically significant stenosis identified.
--- NOTE | 2024-09-08 22:27 | EDPHYS ---
Physician Documentation [facility] Name: Magaly Osorio Age: 79 yrs Sex: Female : 1945 Arrival Date: 09/08/2024 Time: 18:51 Bed 25 Private MD: ED Physician Mg Paul HPI: 09/08 21:07 This 79 yrs old Female presents to ER via EMS with complaints of syncope. 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 Pt states she was about to sit in her chair when she fell back. States she thinks she blacked out for a split second, then she was having trouble speaking. States she has had 4 episodes of blacking out over the last month. reports pt was moving her mouth, but no words were coming out. States she had a facial droop at the time. Pt also reports tremors. All symptoms have resolved at this time. . Historical: - Allergies: 19:18 Aspirin; jb4 19:18 Benadryl; jb4 19:18 Tylenol-Codeine #3; jb4 19:18 Alcohol containing products; jb4 - PMHx: 19:18 acid reflux; Asthma; blood clots (Unknown); COPD; Hyperlipidemia; Hypertensive disorder;jb4 - PSHx: 19:18 section; jb4 - Immunization history:: Adult Immunizations unknown. - Infectious Disease History:: Denies. - Social history:: Smoking status: unknown. ROS: 20:45 Constitutional: As per HPI kb Exam: 20:03 Constitutional: This is a well developed, well nourished patient who is awake, alert, kb and in no acute distress. Head/Face: Normocephalic, atraumatic. ENT: Moist Mucous membranes Cardiovascular: Regular rate Respiratory: Respirations even and unlabored. No increased work of breathing. Talking in full sentences Abdomen/GI: Soft, non-tender. No distention Skin: Warm, dry with normal turgor. Normal color. MS/ Extremity: Pulses equal, no cyanosis. Neurovascular intact. Full, normal range of motion. Neuro: Awake and alert, GCS 15, oriented to person, place, time, and situation. 20:03 ECG was reviewed by the Attending Physician. Vital Signs: 19:13 BP 159 / 75; Pulse 79; Resp 16; Temp 97.8(O); Pulse Ox 97% on R/A; Weight 79.38 kg; jb4 Height 5 ft. 2 in. ; 20:00 BP 140 / 73; Pulse 81; Resp 16; Pulse Ox 98% on R/A; jb4 21:15 BP 154 / 66; Pulse 78; Resp 16; Pulse Ox 98% on R/A; jb4 22:15 BP 157 / 72; Pulse 71; Resp 16; Pulse Ox 99% on R/A; jb4 23:00 BP 154 / 73; Pulse 70; Resp 16; Pulse Ox 96% on R/A; jb4 09/09 00:00 BP 156 / 71; Pulse 67; Resp 13; Pulse Ox 97% on R/A; jb4 09/08 19:13 Body Mass Index 32.01 (79.38 kg, 157.48 cm) jb4 MDM: 09/08 18:57 Medical Screening Exam initiated kb 21:07 Data reviewed: vital signs, nurses notes. kb 22:25 Differential Diagnosis: cardiac arrhythmia, cerebrovascular accident, idiopathic kb syncope, transient ischemic attack, vasovagal episode. Consideration of Admission/Observation Patient was admitted/placed on observation. Escalation of care including admission/observation considered. Management of patient was discussed with the following: Hospitalist: Dr Clark accepts pt for admission. Historians other than the Patient: EMS: [facility]. Family Member: spouse, granddaughter. Counseling: I had a detailed discussion with the patient and/or guardian regarding the historical points, exam findings, and any diagnostic results supporting the discharge/admit diagnosis, lab results, radiology results, the need for further work-up and treatment in the hospital. 09/08 19:09 Order name: Basic Metabolic Panel; Complete Time: 20:41 kb 09/08 19:09 Order name: CBC with Diff; Complete Time: 20:26 kb 09/08 19:09 Order name: Hepatic Function; Complete Time: 20:41 kb 09/08 19:09 Order name: Magnesium; Complete Time: 20:41 kb 09/08 19:09 Order name: Protime (+inr); Complete Time: 20:34 kb 09/08 19:09 Order name: Ptt, Activated; Complete Time: 20:34 kb 09/08 19:09 Order name: Troponin High Sensitivity; Complete Time: 20:41 kb 09/08 19:09 Order name: Urinalysis w/ reflexes; Complete Time: 23:53 kb 09/08 23:08 Order name: Lactate w/ 2H reflex if indic. EDMS 09/08 23:08 Order name: Magnesium EDMS 09/08 23:08 Order name: Phosphorus EDMS 09/08 23:08 Order name: Urinalysis w/ reflexes EDMS 09/08 23:08 Order name: Lipid Profile EDMS 09/08 23:08 Order name: Lipid Profile; Complete Time: 12:57 EDMS 09/09 05:56 Order name: Phosphorus; Complete Time: 12:57 EDMS 09/09 05:56 Order name: Magnesium; Complete Time: 12:57 EDMS 09/09 06:03 Order name: Lactate w/ 2H reflex if indic.; Complete Time: 12:57 EDMS 09/09 07:58 Order name: Basic Metabolic Panel; Complete Time: 12:57 EDMS 09/09 12:51 Order name: Glucose, Ancillary Testing; Complete Time: 12:57 EDMS 09/09 17:28 Order name: Glucose, Ancillary Testing; Complete Time: 17:36 EDMS 09/08 19:09 Order name: CT Head Brain wo Cont; Complete Time: 21:46 kb 09/08 19:09 Order name: Chest Single View XRAY; Complete Time: 20:23 kb 09/08 19:16 Order name: CT Head Angio; Complete Time: 21:46 kb 09/08 19:16 Order name: CT Neck Angio; Complete Time: 21:46 kb 09/09 10:21 Order name: MRI; Complete Time: 12:57 EDMS 09/08 19:09 Order name: EKG; Complete Time: 19:10 kb 09/08 19:09 Order name: Cardiac monitoring; Complete Time: 20:46 kb 09/08 19:09 Order name: EKG - Nurse/Tech; Complete Time: 20:46 kb 09/08 19:09 Order name: IV Saline Lock; Complete Time: 20:46 kb 09/08 19:09 Order name: Labs collected and sent; Complete Time: 21:03 kb 09/08 19:09 Order name: NPO; Complete Time: 21:03 kb 09/08 19:09 Order name: O2 Per Protocol; Complete Time: 21:03 kb 09/08 19:09 Order name: O2 Sat Monitoring; Complete Time: 21:03 kb EC:03 Rate is 82 beats/min. Rhythm is regular. QRS [place] is Normal. [place] interval is normal at kb 152 msec. QRS interval is normal at 132 msec. QT interval is normal at 446 msec. Administered Medications: No medications were administered Disposition Summary: 09/08/24 22:26 Hospitalization Ordered Notes: Hospitalization Status: Observation kb Provider: Prince viola Clark Condition: Stable kb Problem: new kb Symptoms: have improved kb Bed/Room Type: Standard kb Location: Telemetry/MedSurg (observation)(09/09/24 16:53) kb3 Room Assignment: 209(09/09/24 17:22) ja1 Diagnosis - Syncope kb Forms: - Medication Reconciliation Form kb - SBAR form kb - Leadership Thank You Letter kb Signatures: Dispatcher [employer] EDMS Veronica Olson, IRASEMA-C CAR MECHANIC-CkZainab Day Go Kemp, RN RN jb4 Miguel Angel Sears RN RN ja1 Kaley Casillas, RN RN kb3 Lelo Boles rv1 Porfirio Bradshaw, RN RN rg5 Corrections: (The following items were deleted from the chart) 19:16 19:16 Head Angio+CT.RAD.BRZ ordered. EDLA EDMS 19:16 19:16 Neck Angio+CT.RAD.BRZ ordered. EDLA EDMS 22:53 22:26 Telemetry/MedSurg (observation) kb rv1 22:53 22:26 kb rv1 09/09 16:16 02/03 22:53 [facility] ER HOLD rv1 bd 09/09 16:16 02/03 22:53 ERHOLD- rv1 bd 09/09 16:30 16:16 211 bd ja1 16:46 16:16 Telemetry/MedSurg (observation) bd kb3 16:46 16:30 ja1 kb3 16:53 16:46 [facility] ER HOLD kb3 kb3 16:53 16:46 ERHOLD- kb3 kb3 17:11 16:53 209 kb3 ja1 17:22 17:11 ja1 ja1
--- NOTE | 2024-09-08 22:27 | ER ---
Nurse's Notes [facility] Name: Magaly Osorio Age: 79 yrs Sex: Female : 1945 Arrival Date: 09/08/2024 Time: 18:51 Bed 25 Private MD: Diagnosis: Syncope Presentation: 09/08 19:13 Chief complaint: EMS states: Pt went to the restroom and started to feel light headed. jb4 Stood up to go sit in her chair and blacked out. When she woke up she was having a hard time speaking. Coronavirus screen: At this time, the client does not indicate any symptoms associated with coronavirus-19. Ebola Screen: No symptoms or risks identified at this time. Initial Sepsis Screen: Does the patient meet any 2 criteria? No. Patient's initial sepsis screen is negative. Initial Sepsis Screen: Does the patient have a suspected source of infection? No. Patient's initial sepsis screen is negative. Risk Assessment: Do you want to hurt yourself or someone else? Patient reports no desire to harm self or others. Onset of symptoms was September 08, 2024. Transition of care: patient was not received from another setting of care. 19:13 Method Of Arrival: EMS: [facility] jb4 19:13 Acuity: DEE 3 jb4 Historical: - Allergies: 19:18 Aspirin; jb4 19:18 Benadryl; jb4 19:18 Tylenol-Codeine #3; jb4 19:18 Alcohol containing products; jb4 - PMHx: 19:18 acid reflux; Asthma; blood clots (Unknown); COPD; Hyperlipidemia; Hypertensive disorder;jb4 - PSHx: 19:18 section; jb4 - Immunization history:: Adult Immunizations unknown. - Infectious Disease History:: Denies. - Social history:: Smoking status: unknown. Screenin:00 [facility] ED Fall Risk Assessment (Adult) History of falling in the last 3 months, jb4 including since admission Yes- single mechanical fall (1 pt) Confusion or Disorientation No (0 pts) Intoxicated or Sedated No (0 pts) Impaired Gait No (0 pts) Mobility Assist Device Used No (0 pt) Altered Elimination No (0 pt) Score/Fall Risk Level 0 - 2 = Low Risk Oriented to surroundings, Maintained a safe environment. Abuse screen: Denies threats or abuse. Nutritional screening: No deficits noted. Tuberculosis screening: No symptoms or risk factors identified. Assessment: 19:00 General: Appears in no apparent distress. comfortable, Behavior is calm, cooperative, jb4 appropriate for age. Pain: Denies pain. Neuro: Level of Consciousness is awake, alert, obeys commands, Oriented to person, place, time, situation. Cardiovascular: Patient's skin is warm and dry. Respiratory: Airway is patent Respiratory effort is even, unlabored, Respiratory pattern is regular, symmetrical. GI: No signs and/or symptoms were reported involving the gastrointestinal system. : No signs and/or symptoms were reported regarding the genitourinary system. EENT: No signs and/or symptoms were reported regarding the EENT system. Derm: Skin is intact, Skin is pink, warm \T\ dry. Musculoskeletal: Circulation, motion, and sensation intact. Range of motion: intact in all extremities. 20:00 Reassessment: Patient appears in no apparent distress at this time. Patient and/or jb4 family updated on plan of care and expected duration. Pain level reassessed. Patient is alert, oriented x 3, equal unlabored respirations, skin warm/dry/pink. 21:00 Reassessment: Patient appears in no apparent distress at this time. Patient and/or jb4 family updated on plan of care and expected duration. Pain level reassessed. Patient is alert, oriented x 3, equal unlabored respirations, skin warm/dry/pink. 22:00 Reassessment: Patient appears in no apparent distress at this time. Patient and/or jb4 family updated on plan of care and expected duration. Pain level reassessed. Patient is alert, oriented x 3, equal unlabored respirations, skin warm/dry/pink. 23:00 Reassessment: Patient appears in no apparent distress at this time. Patient and/or jb4 family updated on plan of care and expected duration. Pain level reassessed. Patient is alert, oriented x 3, equal unlabored respirations, skin warm/dry/pink. 09/09 00:00 Reassessment: Patient appears in no apparent distress at this time. Patient and/or jb4 family updated on plan of care and expected duration. Pain level reassessed. Patient is alert, oriented x 3, equal unlabored respirations, skin warm/dry/pink. Vital Signs: 09/08 19:13 BP 159 / 75; Pulse 79; Resp 16; Temp 97.8(O); Pulse Ox 97% on R/A; Weight 79.38 kg; jb4 Height 5 ft. 2 in. ; 20:00 BP 140 / 73; Pulse 81; Resp 16; Pulse Ox 98% on R/A; jb4 21:15 BP 154 / 66; Pulse 78; Resp 16; Pulse Ox 98% on R/A; jb4 22:15 BP 157 / 72; Pulse 71; Resp 16; Pulse Ox 99% on R/A; jb4 23:00 BP 154 / 73; Pulse 70; Resp 16; Pulse Ox 96% on R/A; jb4 09/09 00:00 BP 156 / 71; Pulse 67; Resp 13; Pulse Ox 97% on R/A; jb4 09/08 19:13 Body Mass Index 32.01 (79.38 kg, 157.48 cm) jb4 ED Course: 09/08 18:53 Patient arrived in ED. rv1 18:57 [facility]C [facility] kb 18:57 Mg Paul MD is Attending Physician. kb 19:00 Patient has correct armband on for positive identification. Placed in gown. Bed in low jb4 position. Call light in reach. Side rails up X 1. Provided Education on: plan of care. 19:18 Triage completed. jb4 19:18 Arm band placed on right wrist. jb4 19:43 Radiology exam delayed due to lab results not completed at this time. (BUN/Creatinine) nj IV insertion attempt and/or patient not having appropriate IV at this time. 19:54 Chest Single View XRAY In Process Unspecified. EDMS 20:35 Initial lab(s) drawn, by az, sent to lab. Inserted saline lock: 18 gauge in left jb4 antecubital area, using aseptic technique. Blood collected. 21:20 CT Head Brain wo Cont In Process Unspecified. EDMS 21:20 CT Head Angio In Process Unspecified. EDMS 21:20 CT Neck Angio In Process Unspecified. EDMS 22:26 Prince Clark MD is Hospitalizing Provider. kb 09/09 00:00 No provider procedures requiring assistance completed. jb4 00:00 Patient admitted, IV remains in place. jb4 Administered Medications: No medications were administered Medication: 04:44 VIS not applicable for this client. rg5 Outcome: 09/08 22:26 Decision to Hospitalize by Provider. kb 09/09 00:00 Admitted to ER Hold. Please see [facility] for further documentation. jb4 Condition: stable Discharge instructions given to patient, family, Instructed on the need for admit, Demonstrated understanding of instructions, 17:55 Patient left the ED. ll1 Signatures: Dispatcher [employer] EDVeronica Burnette, LINE HELPER-Marizol LINE HELPER-Go Solano, RN RN jb4 Mino Frost Lynsay, TODD RN ll1 Lelo Boles rv1 Porfirio Bradshaw, RN RN rg5
[2024-09-08] MEDS ORDERED: ONDANSETRON 4 MG/2 ML VIAL IV PRN (23:04)
--- NOTE | 2024-09-08 23:15 | P.HP ---
Certification for Inpatient Patient admitted to: Observation With expected LOS: <2 Midnights Practitioner: I am a practitioner with admitting privileges, knowledge of patient current condition, hospital course, and medical plan of care. Services: Services provided to patient in accordance with Admission requirements found in Title 42 Section 412.3 of the Code of Federal Regulations Patient History Date of Service: 09/08/24 Reason for admission: recurrent syncope History of Present Illness: Patient is a 79-year-old female with a past medical history of hypertension. She presented to the ER complaining of syncope. This is patient's of Dr. Aquino. Patient has been having recurrent syncope for the past month. She was treated here earlier this month for orthostatic hypotension related syncope. Back then her symptoms was manifested by dizziness upon standing up. She also syncopized and was found on the floor. Brain MRI at the time was unremarkable. Of note, patient did report having bowel incontinence during 1 of these episodes. In today's visit, patient was experiencing an emotional feeling when she suddenly became unable to add her words. She did not lose consciousness but she was unable to speak. She was brought here due to concern by family. During my evaluation, patient was alert and awake. She had a CT head and CTA head and neck. No significant abnormalities to explain her symptoms. 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 -: Vented with airway failure 11/05/12 -: pul embolus 11/16/2012 -: COPD -: arthritis -: Left bundal branch -: HTN -: 11/05/12 vented - Family History Brother -: Cancer Father -: Hypertension Sister -: Heart disease, Diabetes Mother -: Heart disease, Hypertension - Social History Alcohol use: No CD- Drugs: No Caffeine use: Yes Physical Examination - Physical Exam General: In no apparent distress, Obese HEENT: Atraumatic, Normocephalic Respiratory: Clear to auscultation bilaterally, Normal air movement Cardiovascular: No edema, Normal pulses, Regular rate/rhythm, Normal S1 S2 Neurological: Normal speech - Studies Laboratory Data (last 24 hrs) 09/08/24 09/08/24 09/08/24 20:05 20:05 20:05 WBC 10.50 Hgb 13.9 Hct 39.9 Plt Count 297 PT 11.0 INR 1.05 APTT 28.7 Sodium 138 Potassium 4.6 BUN 21 H Creatinine 1.01 Glucose 134 H Magnesium 2.5 H Total Bilirubin 0.3 AST 16 ALT 26 Alkaline Phosphatase 94 Assessment and Plan - Problems (Diagnosis) (1) HTN (hypertension) Current Visit: No Status: Acute (2) Syncope Current Visit: No Status: Acute (3) Type 2 NH (myocardial infarction) Current Visit: No Status: Acute - Plan Assessment This is a 79-year-old female with a past medical history of hypertension and recently recurrent syncopal episodes. She presented to the hospital with another episode of altered mental status manifested by inability to speak. Patient reportedly had a staring spell. She reportedly was trying to speak but nothing was coming out. These episodes were preceded by emotional outburst as she experienced earlier. She has a history of recurrent syncope some of them associated with bowel incontinence Acute encephalopathy Syncope Hypertension Obesity Plan: Will admit under observation with telemetry Patient's symptoms concerning for undiagnosed seizure Will go ahead and obtain the EEG, brain MRI and 2D echo Neurology consulted Orthostatic vital signs to rule out secondary reasons of syncope Hold diuresis Resume rest of home medication if appropriate PT/OT before discharge - Advance Directives Does patient have a Living Will: No Does patient have a Durable POA for Healthcare: No
[2024-09-08 23:52] LABS: Specific Gravity 1.008 (1.005-1.030); Urine Bilirubin NEGATIVE (Negative); Urine Blood Negative (Negative); Urine Clarity Clear (Clear); Urine Color Colorless (Yellow); Urine Glucose NEGATIVE (Negative); Urine Ketones NEGATIVE (Negative); Urine Microscopic Reflex YN NO UMIC; Urine Nitrite NEGATIVE (Negative); Urine Protein NEGATIVE (Negative); Urine Urobilinogen Normal (Normal); Urine pH 6.5 (5.0-7.0)
[2024-09-09] MEDS ORDERED: NA CHLORIDE 0.9% 1,000 ML ONE ×2 (00:58→16:54)
[2024-09-09] MEDS: NA CHLORIDE 0.9% 1,000 ML IV SCH (01:15)
[2024-09-09 01:19] VITALS: BMI 32.0
[2024-09-09 05:56] LABS: Magnesium 2.6 mg/dL (1.6-2.4); Phosphorus 3.7 mg/dL (2.5-4.9)
[2024-09-09] MEDS: ENOXAPARIN 40 MG/0.4 ML SQ SCH (09:00)
[2024-09-09] MEDS ORDERED: ENOXAPARIN 40 MG/0.4 ML SQ ONE (09:03)
--- NOTE | 2024-09-09 10:21 | RAD REPORT ---
EXAMINATION: MRI BRAIN WITHOUT CONTRAST CLINICAL INDICATION: Female, 79 years old.[facility] N ams TECHNIQUE: Multiplanar multisequence MR images of the brain were obtained without intravenous contras t. Unless otherwise specified, incidental findings do not require dedicated imaging follow-up. COMPARISON: 08/07/[address] and [address] angiogram to 09/08/2024 FINDINGS: INTRACRANIAL: Midline structures are unremarkable. Diffusion-weighted images show no acute or early subacute infarction. There is moderate brain atrophy with moderateT2/FLAIR hyperintensities in the periventricular and deep white matter regions, likely representing chronic microvascular ischemic ezekiel nges. Findings are overall stable. There is no mass effect or midline shift. No abnormal extraaxial fluid collection. VASCULATURE: Normal signal voids in the larger intracranial arteries and dural venous sinuses. SINUSES: The paranasal sinuses and mastoid air cells are predominantly clear. BONE: The marrow signal pattern is within normal limits. IMPRESSION: No significant intracranial abnormalities. Stable sequelae of presumed chronic small vessel ischemic changes as above.
[2024-09-09 11:51] VITALS: O2SAT 96
--- NOTE | 2024-09-09 12:11 | EKG ---
Test Date: 2024-09-08 Test Time: 19:57:05 Cnp: SILVANO MEASUREMENT RESULTS: Intervals: Rate: 82 SC: 152 QRSD: 132 QT: 382 QTc: 446 [place]: P: 30 SC: 152 QRS: 8 T: 165 INTERPRETIVE STATEMENTS: Normal sinus rhythm Left bundle branch block Abnormal ECG Compared to ECG 08/05/2024 11:04:42 No significant changes Electronically Signed On 09-09-24 12:10:04 [employer] by Michael Merchant
--- NOTE | 2024-09-09 14:04 | ECHO ---
HEIGHT: 5 ft 2 in WEIGHT: 175 lb 0 oz DATE OF STUDY: 09/09/[address]: Prince Priyanka Clark MD 2-DIMENSIONAL: YES M.MODE: YES DOPPLER: YES COLOR FLOW: YES TDS: YES PORTABLE: YES DEFINITY: NO BUBBLE STUDY: NO DIAGNOSIS: RECURRENT SYNCOPE CARDIAC HISTORY: CATHERIZATION: NO SURGERY: NO PROSTHETIC VALVE: NO PACEMAKER: NO MEASUREMENTS (cm) DIASTOLIC (NORMALS) SYSTOLIC (NORMALS) IVSd 1.1 (0.6-1.2) LA Diam 23 (1.9-4.0) LVEF 56% LVIDd 3.2 (3.5-5.7) LVIDs 2.3 (2.0-3.5) %FS 28% LVPWd 1.2 (0.6-1.2) Ao Diam 2.2 (2.0-3.7) 2 DIMENSIONAL ASSESSMENT: RIGHT ATRIUM: NORMAL LEFT ATRIUM: NORMAL RIGHT VENTRICLE: NORMAL LEFT VENTRICLE: NORMAL TRICUSPID VALVE: TRACE OF TRICUSPID REGURGITATION MITRAL VALVE: NORMAL PULMONIC VALVE: NORMAL AORTIC VALVE: NORMAL PERICARDIAL EFFUSION: NONE AORTIC ROOT: NORMAL LEFT VENTRICULAR WALL MOTION: NORMAL. DOPPLER/COLOR FLOW: GRADE I DIASTOLIC DYSFUNCTION. COMMENTS: 1. NORMAL LEFT VENTRICULAR SYSTOLIC FUNCTION, EJECTION FRACTION 60-65%, NORMAL WALL MOTION. 2. GRADE I DIASTOLIC DYSFUNCTION. TECHNOLOGIST: LINDSAY GARZON
[2024-09-09] MEDS: INSULIN REGULAR (HUMAN) 100 UNIT/ML SQ SCH (22:27)
--- NOTE | 2024-09-10 01:59 | P.PN ---
Subjective Date of Service: 09/09/24 patient with significant syncopal or near-syncopal event. Imaging studies have been negative. Echocardiogram pending. eeg pending. Of monitoring on telemetry. If workup remains negative anticipate discharge home. Review of Systems 10-point ROS is otherwise unremarkable Physical Examination - Vital Signs Temperature: 97.9 F Blood Pressure: 138/68 Pulse: 77 Respirations: 12 Pulse Ox (%): 96 - Physical Exam General: Alert, In no apparent distress, Oriented x3 HEENT: Atraumatic, PERRLA, EOMI Neck: Supple, JVD not distended Respiratory: Clear to auscultation bilaterally, Normal air movement Cardiovascular: Regular rate/rhythm, Normal S1 S2, No murmurs Gastrointestinal: Normal bowel sounds, Soft and benign, Non-distended, No tenderness Musculoskeletal: No clubbing, No swelling, No tenderness Neurological: Sensation intact, Cranial nerves 3-12 intact - Studies Medications List Reviewed: Yes Assessment & Plan - Problems (Diagnosis) (1) HTN (hypertension) Current Visit: No Status: Acute (2) Orthostatic hypotension Current Visit: No Status: Acute (3) Syncope Current Visit: No Status: Acute - Plan Plan: 1. Near syncopal event; workup pending included MRI of the brain, echoc ardiogram, and EEG. Patient is working with physical therapy as well. Will continue Urgent physical therapy and arrange for home health with PT at discharge. She will need to follow-up with neurology for further evaluation for syncopal episode as well as Cardiology to workup her syncope including the day event monitor or loop recorder placement. Anticipate discharge in a.m.. - Advance Directives Does patient have a Living Will: No Does patient have a Durable POA for Healthcare: No
[2024-09-10 05:21] LABS: Percent Reticulocyte Count 1.49 % (0.4-2.05)
[2024-09-10 05:24] LABS: Absolute Basophils 0.1 K/uL (0-0.5); Absolute Eosinophils 0.2 K/uL (0-0.5); Absolute Lymphocytes (CBC) 2.6 K/uL (0.7-4.9); Absolute Monocytes 0.8 K/uL (0.1-1.3); Absolute Neutrophil 5.9 K/uL (1.8-8.0); Basophils % 0.7 % (0-1.3); Eosinophils % 1.9 % (0-4.4); Hematocrit 35.3 % (36.0-45.0); Hemoglobin 12.4 g/dL (12.0-15.0); Lymphocytes % 27.3 % (15.3-44.8); MCH 31.3 pg (27.0-35.0); MCV 89.4 fL (80-100); MPV 8.6 fL (7.6-11.3); Monocytes % 8.6 % (3.3-12.3); Neutrophils % 61.5 % (41.7-73.7); Platelets 245 thou/uL (152-406); RBC Red Blood Cell Count 3.95 M/uL (3.86-4.86); Red Cell Distribution Width 13.6 % (12.1-15.2)
[2024-09-10 05:57] LABS: Anion Gap 6.1 mEq/L (5.0-15.0); Magnesium 2.2 mg/dL (1.6-2.4); Potassium 4.1 mEq/L (3.5-5.1)
[2024-09-10 06:07] LABS: Magnesium 2.1 mg/dL (1.6-2.4)
[2024-09-10 06:14] LABS: C-Reactive Protein < 2.90 mg/L (<3.00)
[2024-09-10] MEDS ORDERED: INSULIN REGULAR (HUMAN) 100 UNIT/ML SQ SCH (07:30)
[2024-09-10 08:49] VITALS: BP 170/76; TEMP 97.9
== END 2024-09-10 09:33 | disposition home or self-care (01) ==
LOC: ER 18:51 → ERHOLD 23:04 → 2ND 09-09 18:10
PROVIDERS: ADMIT Internal Medicine; ATTEND Hospitalist
DX: I95.1 Orthostatic hypotension (principal); R55 Syncope and collapse; R41.82 Altered mental status, unspecified; I10 Essential (primary) hypertension; R15.9 Full incontinence of feces; G93.40 Encephalopathy, unspecified; E66.9 Obesity, unspecified; Z88.5 Allergy status to narcotic agent; Z88.6 Allergy status to analgesic agent; Z88.8 Allergy status to other drugs, medicaments and biological substances
CPT/HCPCS: 95816; 93005; 93306; 85025 ×2; 80048 ×3; 36415 ×3; 83735 ×4; 84100; 85610; 85044; 80061; 82947 ×3; 80076; 83605; 85730; 84443; 81003; 83036; 84484; 84439; 82607; 83540; 82533; 86140; 70450; 70496; 70498; 71045; 70551; 99285; Q9967; J1650; J7030 ×4; G0378 ×4

== ENCOUNTER 2024-09-18 20:30 | Emergency (ER) | payer OTHER ==
--- OUTSIDE RECORDS SUMMARY | 2024-09-18 20:34 | XMS REPORT | Continuity of Care Document ---
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 code = 713-8) 1.7 % BASO % (test code = 706-2) 0.7 % GRAN MAT x10^3(ANC) (test code = 9497786067) 3.38 10*3/uL 1.88-7.09 IMM GRAN x10^3 (test code = 4603945029) <0.03 0-0.06 LYMPH x10^3 (test code = 731-0) 2.42 10*3/uL 1.32-3.29 MONO x10^3 (test code = 742-7) 0.93 10*3/uL 0.33-0.92 H EOS x10^3 (test code = 711-2) 0.12 10*3/uL 0.03-0.39 BASO x10^3 (test code = 704-7) 0.05 10*3/uL 0.01-0.07 Lab Interpretation (test code = 91307-7) Abnormal [facility] WITH [id number] 20:45:00* Test Item Value Reference Range Interpretation Comme nts WBC (test code = 6690-2) See_Comment [Automated Catmojia ge] The system which generated this result transmitted reference range: 4.30 - 11.10 10*3/?L. The reference range was not used to interpret this result as normal/abnormal. RBC (test code = 789-8) See_Comment [Automated Catmojia [place]] The system which generated this result transmitted [...] 34.0 g/dL 31.6-35.1 RDW-SD (test code = 73210-7) 40.3 fL 39-49.9 RDW-CV (test code = 788-0) 12.2 % 12-15.5 PLT (test code = 777-3) See_Comment [Automated messa ge] The system which generated this result transmitted reference range: 166 - 358 10*3/?L. The reference range was not used to interpret this result as normal/abnormal. MPV (test code = 22654-7) 10.4 fL 9.5-12.9 NRBC/100 WBC (test code = 7792169488) See_Comment [Automated me ssage] The system which generated this result transmitted reference range: 0.0 - 10.0 /100 WBCs. The reference range was not used to interpret this result as normal/abnormal. NRBC x10^3 (test code = 3869057040) <0.01 See_Comment [Automated messa ge] The system which generated this result transmitted reference range: 10*3/?L. The reference range was not used to interpret this result as normal/abnormal. GRAN MAT (NEUT) % (test code = 770-8) 49.0 % IMM GRAN % (test code = 8386334220) 0.10 % LYMPH % (test code = 736-9) 35.0 % MONO % (test code = 5905-5) 13.5 % EOS % (test code = 713-8) 1.7 % BASO % (test code = 706-2) 0.7 % GRAN MAT x10^3(ANC) (test code = 6888081795) 3.38 10*3/uL 1.88-7.09 IMM GRAN x10^3 (test code = 7019376880) <0.03 0-0.06 LYMPH x10^3 (test code = 731-0) 2.42 10*3/uL 1.32-3.29 MONO x10^3 (test code = 742-7) 0.93 10*3/uL 0.33-0.92 H EOS x10^3 (test code = 711-2) 0.12 10*3/uL 0.03-0.39 BASO x10^3 (test code = 704-7) 0.05 10*3/uL 0.01-0.07 Lab Interpretation (test code = 58145-9) Abnormal [facility] Notes Date/Time Note Provider Source Referral ID Status Reason Start Date Expiration Date V isits Requested Visits Authorized [id number] Authorized 09/12/2024 03/11/2025 1 1 [facility] 17:39:46 [facility]Mbqt[facility]p5531[facility]32-36 17:39:46* Amara Anthony MD - 09/17/2024 1:00 PM CHILD PROTECTIVE SERVICES SPECIALIST Associated Order(s): EEG awake or drowsy routine Pre-Procedure Diagnose(s): Syncope and collapse Post-Procedure Diagnose(s): Syncope and collapse Patient ID: Mert Osorio is a 79 y.o. female. EEG awake or drowsy routine Date/Time: 09/17/2024 5:38 PM Performed by: Amara Anthony MD Authorized by: Amara Anthony MD Indications: Indications: Syncope, possible seizure Procedure specific details: The EEG was recorded in the EEG lab. Electrodes were placed according to the international 10 - 20 system of electrode placement. The EEG underwent continuous computer analysis that consists of real-time application of programs to detect electrical events that could be considered epileptiform. All electroencephalographic events identified by the detection program were visually inspected in order to assess waveform characteristics and significance. Only computer detected events verified by visual inspection to be interictal or ictal epileptiform abnormalities are reported below and considered in the final report of the study. The waking EEG consists of moderate amplitude rhythmical alpha waves of 10 cycles per second that are maximal in the posterior head regions, attenuate with eye opening, and appear without abnormal asymmetry. Low amplitude fast activity of 20 - 30 cycles per second appears symmetrically and is maximal in the frontal and central regions. In drowsiness, low amplitude fast activity increases and moderate amplitude slow waves of 6 -- 8 cycles per second appear in the central and posterior regions without persistent asymmetry. Sleep occurred naturally. Vertex waves, positive occipital sharp transients of stages 1 and 2 sleep are noted. Hyperventilation was performed and produced no change in the waking EEG pattern. Photic stimulation produced symmetrical driving responses. IMPRESSION Normal EEG in wake, drowsiness and sleep. There were no focal asymmetries. No epileptiform discharges appeared. No behavior suggestive of seizure occurred. D PROTECTIVE SERVICES SPECIALIST [facility] HospitalFoumils8762-86-41 17:39:46Upcoming Encounters Health Maintenance Due Date Last Done Comments Bone Density Scan 1943 Lipid Panel 1945 Annual Physical 1946 Pneumococcal Vaccine: 65+ Ye ars (1 of 2 - PCV) 1949 DTaP/Tdap/Td Vaccines (1 - Tdap) 1962 Zoster Vaccines (1 of 2) 1993 Respiratory Syncytial Virus (RSV) or >=60 (1 - 1-dose 75+ series) 2018 Influenza Vaccine (#1) 2024 HIB Vaccines Aged Out No longer eligi ble based on patient's age to complete this topic HPV Vaccines Aged Out No longer eligi ble based on patient's age to complete this topic Hepatitis A Vaccines Aged Out No long er eligible based on patient's age to complete this topic Hepatitis B Vaccines Aged Out No long er eligible based on patient's age to complete this topic IPV Vaccines Aged Out No longer eligi ble based on patient's age to complete this topic Meningococcal Vaccine Aged Out No pham nora eligible based on patient's age to complete this topic Rotavirus Vaccines Aged Out No longer eligible based on patient's age to complete this topic [facility] HospitalTqnaitc5058-85-49 17:39:46 Diagnosis Syncope and collapse [facility] HospitalIdrajvm4656-53-50 17:39:46 [place] 916565-02-07 18:19:43* [facility] HospitalMrjikqi6895-63-36 18:19:43 [place] 916565-02-07 18:19:43* Amara Anthony MD - 09/12/2024 9:45 AM CHILD PROTECTIVE SERVICES SPECIALIST History of Present Illness HPI 2/3 had an episode where she couldn't talk and was shaking all over, EMS was called went to the ER. Admitted, LDL 96. EEG, MRI, CTA unchanged. Will repeat EEG and if still normal consider 72h EEG Allergies as of 09/12/2024 - Reviewed 09/12/2024 Allergen Reaction Noted Aspirin Itching and Unknown 08/19/2017 Codeine 05/14/2024 Cyclobenzaprine Dizziness 05/14/2024 Diphenhydramine Itching 08/19/2017 Methocarbamol Dizziness 05/14/2024 has a current medication list which includes the following prescription(s): alpha-lipoic acid, alprazolam, arnuity ellipta, ascorbic acid, atorvastatin, beta carotene, cetirizine hcl, cholecalciferol, clopidogrel, coenzyme q10, cyanocobalamin, esomeprazole, gabapentin, garlic, losartan, metoprolol tartrate, multiple vitamins-minerals, omega-3 fatty acids, prednisone, specialty vitamins products, thiamine, tramadol, and vitamin e. Vitals:09/12/24 0955 BP: 133/76 Pulse: 69 Resp: 16 Temp: 36.3 ?C (97.4 ?F) SpO2: 96% Neurological Exam Mental Status Awake and alert. Speech is normal. Cranial NervesCN II: Visual acuity is normal. CN III, IV, : Extraocular movements intact bilaterally. Pupils equal round and reactive to light bilaterally. CN VII: Full and symmetric facial movement. CN XII: Tongue midline without atrophy or fasciculations. MotorStrength is 5/5 throughout all four extremities. SensoryLight touch is normal in upper and lower extremities. Temperature is normal in upper and lower extremities. Vibration is normal in upper and lower extremities. ReflexesDeep tendon reflexes: Symmetric. GaitCasual gait is normal including stance, stride, and arm swing. No results found for this or any previous visit. No MRI head results found for the past 12 months Assessment & PlanDiagnoses and all orders for this visit: Syncope, unspecified syncope type Check EEG Time: 35 minutes I am the continuing focal point for needed health care services and medicalcare services that are part of ongoing care related to this patient's single, serious condition or complex condition. [place] [id number] 18:19:43Upcoming Encounters Health Maintenance Due Date Last Done Comments Bone Density Scan 1943 Lipid Panel 1943 Annual Physical 1946 Pneumococcal Vaccine: 65+ Ye ars (1 of 2 - PCV) 1949 DTaP/Tdap/Td Vaccines (1 - Tdap) 1962 Zoster Vaccines (1 of 2) 1993 Respiratory Syncytial Virus (RSV) or >=60 (1 - 1-dose 75+ series) 2018 Influenza Vaccine (#1) 2024 HIB Vaccines Aged Out No longer eligi ble based on patient's age to complete this topic HPV Vaccines Aged Out No longer eligi ble based on patient's age to complete this topic Hepatitis A Vaccines Aged Out No long er eligible based on patient's age to complete this topic Hepatitis B Vaccines Aged Out No long er eligible based on patient's age to complete this topic IPV Vaccines Aged Out No longer eligi ble based on patient's age to complete this topic Meningococcal Vaccine Aged Out No pham nora eligible based on patient's age to complete this topic Rotavirus Vaccines Aged Out No longer eligible based on patient's age to complete this topic [facility] HospitalUdbazox0212-24-87 18:19:43 Diagnosis Syncope, unspecified syncope type - Primary [facility] HospitalMakddpq0396-48-85 18:19:43 [facility] HospitalKmwhiyg9133-65-30 18:19:43* [facility] HospitalBcvlvsl7193-51-20 18:19:43 [place] [id number] 18:19:43* Amara Anthony MD - 09/12/2024 9:45 AM CHILD PROTECTIVE SERVICES SPECIALIST History of Present Illness HPI 2/3 had an episode where she couldn't talk and was shaking all over, EMS was called went to the ER. Admitted, LDL 96. EEG, MRI, CTA unchanged. Will repeat EEG and if still normal consider 72h EEG Allergies as of 09/12/2024 - Reviewed 09/12/2024 Allergen Reaction Noted Aspirin Itching and Unknown 08/19/2017 Codeine 05/14/2024 Cyclobenzaprine Dizziness 05/14/2024 Diphenhydramine Itching 08/19/2017 Methocarbamol Dizziness 05/14/2024 has a current medication list which includes the following prescription(s): alpha-lipoic acid, alprazolam, arnuity ellipta, ascorbic acid, atorvastatin, beta carotene, cetirizine hcl, cholecalciferol, clopidogrel, coenzyme q10, cyanocobalamin, esomeprazole, gabapentin, garlic, losartan, metoprolol tartrate, multiple vitamins-minerals, omega-3 fatty acids, prednisone, specialty vitamins products, thiamine, tramadol, and vitamin e. Vitals:09/12/24 0955 BP: 133/76 Pulse: 69 Resp: 16 Temp: 36.3 ?C (97.4 ?F) SpO2: 96% Neurological Exam Mental Status Awake and alert. Speech is normal. Cranial NervesCN II: Visual acuity is normal. CN III, IV, : Extraocular movements intact bilaterally. Pupils equal round and reactive to light bilaterally. CN VII: Full and symmetric facial movement. CN XII: Tongue midline without atrophy or fasciculations. MotorStrength is 5/5 throughout all four extremities. SensoryLight touch is normal in upper and lower extremities. Temperature is normal in upper and lower extremities. Vibration is normal in upper and lower extremities. ReflexesDeep tendon reflexes: Symmetric. GaitCasual gait is normal including stance, stride, and arm swing. No results found for this or any previous visit. No MRI head results found for the past 12 months Assessment & PlanDiagnoses and all orders for this visit: Syncope, unspecified syncope type Check EEG Time: 35 minutes I am the continuing focal point for needed health care services and medicalcare services that are part of ongoing care related to this patient's single, serious condition or complex condition. [facility]2025-02-07 18:19:43Upcoming Encounters Health Maintenance Due Date Last Done Comments Bone Density Scan 1943 Lipid Panel 1945 Annual Physical 1946 Pneumococcal Vaccine: 65+ Ye ars (1 of 2 - PCV) 1949 DTaP/Tdap/Td Vaccines (1 - Tdap) 1962 Zoster Vaccines (1 of 2) 1993 Respiratory Syncytial Virus (RSV) or >=60 (1 - 1-dose 75+ series) 2018 Influenza Vaccine (#1) 2024 HIB Vaccines Aged Out No longer eligi ble based on patient's age to complete this topic HPV Vaccines Aged Out No longer eligi ble based on patient's age to complete this topic Hepatitis A Vaccines Aged Out No long er eligible based on patient's age to complete this topic Hepatitis B Vaccines Aged Out No long er eligible based on patient's age to complete this topic IPV Vaccines Aged Out No longer eligi ble based on patient's age to complete this topic Meningococcal Vaccine Aged Out No pham nora eligible based on patient's age to complete this topic Rotavirus Vaccines Aged Out No longer eligible based on patient's age to complete this topic [facility] HospitalHvnpioy7228-13-44 18:19:43 Diagnosis Syncope, unspecified syncope type - Primary [facility] HospitalBabbvhq8693-11-43 18:19:43 [facility] HospitalEtsksig0774-39-83 10:26:37* Neurology (Routine) - Pending Review Specialty Diagnoses / Procedures Referred By Contcolby t Referred To Contact Diagnoses Syncope and collapse Procedures EEG awake or drowsy routine Amara Anthony MD [address] [place] [id number] Phone: tel: fax: Referral ID Status Reason Start Date Expiration Date V isits Requested Visits Authorized [id number] Pending Review 09/12/2024 03/11/2025 1 1 D PROTECTIVE SERVICES SPECIALIST [facility] HospitalAtmxyqg0819-54-61 10:26:37 [facility] HospitalFulnnox5593-08-63 10:26:37Upcoming Encounters Scheduled Orders Name Type Priority Associated Diagnoses Orde r Schedule EEG awake or drowsy routine Neurology Routine Syncope and collapse Expected: 0 09/12/2024 (Approximate), Expires: 09/12/2025 Health Maintenance Due Date Last Done Comments Bone Density Scan 1943 Lipid Panel 1945 Annual Physical 1946 Pneumococcal Vaccine: 65+ Ye ars (1 of 2 - PCV) 1949 DTaP/Tdap/Td Vaccines (1 - Tdap) 1962 Zoster Vaccines (1 of 2) 1993 Respiratory Syncytial Virus (RSV) or >=60 (1 - 1-dose 75+ series) 2018 Influenza Vaccine (#1) 2024 HIB Vaccines Aged Out No longer eligi ble based on patient's age to complete this topic HPV Vaccines Aged Out No longer eligi ble based on patient's age to complete this topic Hepatitis A Vaccines Aged Out No long er eligible based on patient's age to complete this topic Hepatitis B Vaccines Aged Out No long er eligible based on patient's age to complete this topic IPV Vaccines Aged Out No longer eligi ble based on patient's age to complete this topic Meningococcal Vaccine Aged Out No pham nora eligible based on patient's age to complete this topic Rotavirus Vaccines Aged Out No longer eligible based on patient's age to complete this topic [facility] HospitalLnhvfvr1636-87-62 10:26:37 Diagnosis Syncope and collapse [facility] HospitalZlkomai7961-22-15 10:26:37 [facility] HospitalTstmrrr9814-76-66 10:25:24 [facility] HospitalAhjjgje3819-59-44 10:25:24Upcoming Encounters Scheduled Orders Name Type Priority Associated Diagnoses Orde r Schedule Egg Component Panel Lab Routine Psychogenic sync ope Expected: 09/12/2024 (Approximate), Expires: 09/12/2025 Health Maintenance Due Date Last Done Comments Bone Density Scan 1943 Lipid Panel 1943 Annual Physical 1946 Pneumococcal Vaccine: 65+ Ye ars (1 of 2 - PCV) 1949 DTaP/Tdap/Td Vaccines (1 - Tdap) 1962 Zoster Vaccines (1 of 2) 1993 Respiratory Syncytial Virus (RSV) or >=60 (1 - 1-dose 75+ series) 2018 Influenza Vaccine (#1) 2024 HIB Vaccines Aged Out No longer eligi ble based on patient's age to complete this topic HPV Vaccines Aged Out No longer eligi ble based on patient's age to complete this topic Hepatitis A Vaccines Aged Out No long er eligible based on patient's age to complete this topic Hepatitis B Vaccines Aged Out No long er eligible based on patient's age to complete this topic IPV Vaccines Aged Out No longer eligi ble based on patient's age to complete this topic Meningococcal Vaccine Aged Out No pham nora eligible based on patient's age to complete this topic Rotavirus Vaccines Aged Out No longer eligible based on patient's age to complete this topic [facility] HospitalPvsjdif2375-98-00 10:25:24 Diagnosis Psychogenic syncope Other somatoform disorders [facility] HospitalBgekaep5453-29-11 10:25:24 [facility] HospitalZdyulfp0838-73-85 19:04:28* [facility] HospitalLinjzbp3460-09-72 19:04:28 [facility] HospitalNfhdomi8983-67-24 19:04:28* Amara Anthony MD - 09/03/2024 1:15 PM CHILD PROTECTIVE SERVICES SPECIALIST History of Present Illness HPI Bent over became dizzy, passed out, trembling. Daughter came over went to the ER a few days later. Imaging and labs, troponin was positive, admitted. Saw cardiology, has stress test scheduled. Right thigh is better. Some chronic ischemic change on brain MRI, allergic to ASA. Suggested Plavix for the chronic ischemic change on imaging. Allergies as of 09/03/2024 - Reviewed 09/03/2024 Allergen Reaction Noted Aspirin Itching and Unknown 08/19/2017 Codeine 05/14/2024 Cyclobenzaprine Dizziness 05/14/2024 Diphenhydramine Itching 08/19/2017 Methocarbamol Dizziness 05/14/2024 has a current medication list which includes the following prescription(s): alpha-lipoic acid, arnuity ellipta, ascorbic acid, atorvastatin, beta carotene, cetirizine hcl, cholecalciferol, coenzyme q10, cyanocobalamin, esomeprazole, gabapentin, garlic, losartan, metoprolol tartrate, multiple vitamins-minerals, omega-3 fatty acids, prednisone, specialty vitamins products, thiamine, tramadol, and vitamin e. Vitals:09/03/24 1331 BP: 129/61 Pulse: 80 Resp: 16 Temp: 36.4 ?C (97.5 ?F) SpO2: 97% Neurological Exam Mental Status Awake and alert. Speech is normal. Cranial NervesCN II: Visual acuity is normal. CN III, IV, : Extraocular movements intact bilaterally. Pupils equal round and reactive to light bilaterally. CN VII: Full and symmetric facial movement. CN XII: Tongue midline without atrophy or fasciculations. MotorStrength is 5/5 throughout all four extremities. SensoryTemperature is normal in upper and lower extremities. Vibration is normal in upper and lower extremities. Right: Loss of sensation in the lateral cutaneous thigh nerve distribution. ReflexesDeep tendon reflexes: Symmetric. GaitCasual gait is normal including stance, stride, and arm swing. No results found for this or any previous visit. No MRI head results found for the past 12 months Assessment & PlanDiagnoses and all orders for this visit: Meralgia paresthetica of right side Syncope, unspecified syncope type Ischemic cerebrovascular disease Add Plavix 75 mg daily. Risks, benefits, side effects reviewed with patient. Meralgia paresthetica symptoms are better. Can check EEG if cardiology workup is unremarkable Time: 35 minutes I am the continuing focal point for needed health care services and medicalcare services that are part of ongoing care related to this patient's single, serious condition or complex condition. D PROTECTIVE SERVICES SPECIALIST [facility] HospitalZoejapa7845-85-34 19:04:28Upcoming Encounters Health Maintenance Due Date Last Done Comments Bone Density Scan 1943 Lipid Panel 1943 Annual Physical 1946 Pneumococcal Vaccine: 65+ Ye ars (1 of 2 - PCV) 1949 DTaP/Tdap/Td Vaccines (1 - Tdap) 1962 Zoster Vaccines (1 of 2) 1993 Respiratory Syncytial Virus (RSV) or >=60 (1 - 1-dose 75+ series) 2018 Influenza Vaccine (#1) 2024 HIB Vaccines Aged Out No longer eligi ble based on patient's age to complete this topic HPV Vaccines Aged Out No longer eligi ble based on patient's age to complete this topic Hepatitis A Vaccines Aged Out No long er eligible based on patient's age to complete this topic Hepatitis B Vaccines Aged Out No long er eligible based on patient's age to complete this topic IPV Vaccines Aged Out No longer eligi ble based on patient's age to complete this topic Meningococcal Vaccine Aged Out No pham nora eligible based on patient's age to complete this topic Rotavirus Vaccines Aged Out No longer eligible based on patient's age to complete this topic [facility] HospitalJpighso8045-58-90 19:04:28 Diagnosis Meralgia paresthetica of rig ht side - Primary Syncope, unspecified syncope type Ischemic cerebrovascular dis ease [facility] [id number] 19:04:28 [facility] HospitalQrvphgl2531-74-83 19:04:28* [facility] HospitalZscaiwn0516-34-47 19:04:28 [facility] HospitalZeppgsb5781-88-43 19:04:28* Amara Anthony MD - 09/03/2024 1:15 PM CHILD PROTECTIVE SERVICES SPECIALIST History of Present Illness HPI Bent over became dizzy, passed out, trembling. Daughter came over went to the ER a few days later. Imaging and labs, troponin was positive, admitted. Saw cardiology, has stress test scheduled. Right thigh is better. Some chronic ischemic change on brain MRI, allergic to ASA. Suggested Plavix for the chronic ischemic change on imaging. Allergies as of 09/03/2024 - Reviewed 09/03/2024 Allergen Reaction Noted Aspirin Itching and Unknown 08/19/2017 Codeine 05/14/2024 Cyclobenzaprine Dizziness 05/14/2024 Diphenhydramine Itching 08/19/2017 Methocarbamol Dizziness 05/14/2024 has a current medication list which includes the following prescription(s): alpha-lipoic acid, arnuity ellipta, ascorbic acid, atorvastatin, beta carotene, cetirizine hcl, cholecalciferol, coenzyme q10, cyanocobalamin, esomeprazole, gabapentin, garlic, losartan, metoprolol tartrate, multiple vitamins-minerals, omega-3 fatty acids, prednisone, specialty vitamins products, thiamine, tramadol, and vitamin e. Vitals:09/03/24 1331 BP: 129/61 Pulse: 80 Resp: 16 Temp: 36.4 ?C (97.5 ?F) SpO2: 97% Neurological Exam Mental Status Awake and alert. Speech is normal. Cranial NervesCN II: Visual acuity is normal. CN III, IV, : Extraocular movements intact bilaterally. Pupils equal round and reactive to light bilaterally. CN VII: Full and symmetric facial movement. CN XII: Tongue midline without atrophy or fasciculations. MotorStrength is 5/5 throughout all four extremities. SensoryTemperature is normal in upper and lower extremities. Vibration is normal in upper and lower extremities. Right: Loss of sensation in the lateral cutaneous thigh nerve distribution. ReflexesDeep tendon reflexes: Symmetric. GaitCasual gait is normal including stance, stride, and arm swing. No results found for this or any previous visit. No MRI head results found for the past 12 months Assessment & PlanDiagnoses and all orders for this visit: Meralgia paresthetica of right side Syncope, unspecified syncope type Ischemic cerebrovascular disease Add Plavix 75 mg daily. Risks, benefits, side effects reviewed with patient. Meralgia paresthetica symptoms are better. Can check EEG if cardiology workup is unremarkable Time: 35 minutes I am the continuing focal point for needed health care services and medicalcare services that are part of ongoing care related to this patient's single, serious condition or complex condition. D PROTECTIVE SERVICES SPECIALIST [facility] HospitalPzlaujw2631-33-73 19:04:28Upcoming Encounters Health Maintenance Due Date Last Done Comments Bone Density Scan 1943 Lipid Panel 1945 Annual Physical 1946 Pneumococcal Vaccine: 65+ Ye ars (1 of 2 - PCV) 1949 DTaP/Tdap/Td Vaccines (1 - Tdap) 1962 Zoster Vaccines (1 of 2) 1993 Respiratory Syncytial Virus (RSV) or >=60 (1 - 1-dose 75+ series) 2018 Influenza Vaccine (#1) 2024 HIB Vaccines Aged Out No longer eligi ble based on patient's age to complete this topic HPV Vaccines Aged Out No longer eligi ble based on patient's age to complete this topic Hepatitis A Vaccines Aged Out No long er eligible based on patient's age to complete this topic Hepatitis B Vaccines Aged Out No long er eligible based on patient's age to complete this topic IPV Vaccines Aged Out No longer eligi ble based on patient's age to complete this topic Meningococcal Vaccine Aged Out No pham nora eligible based on patient's age to complete this topic Rotavirus Vaccines Aged Out No longer eligible based on patient's age to complete this topic [facility] [id number] 19:04:28 Diagnosis Meralgia paresthetica of rig ht side - Primary Syncope, unspecified syncope type Ischemic cerebrovascular dis ease [facility] [id number] 19:04:28 [facility] HospitalQhwqwsn4398-94-13 00:00:00 [facility]2024-10-29 18:07:12* Consultation (Routine) - Pending Review Specialty Diagnoses / Procedures Referred By Contac t Referred To Contact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
[2024-09-18 21:27] LABS: Absolute Basophils 0.1 K/uL (0-0.5); Absolute Eosinophils 0.1 K/uL (0-0.5); Absolute Lymphocytes (CBC) 1.8 K/uL (0.7-4.9); Absolute Monocytes 0.8 K/uL (0.1-1.3); Absolute Neutrophil 4.3 K/uL (1.8-8.0); Basophils % 0.9 % (0-1.3); Eosinophils % 2.1 % (0-4.4); Hematocrit 39.7 % (36.0-45.0); Hemoglobin 13.5 g/dL (12.0-15.0); Lymphocytes % 25.5 % (15.3-44.8); MCH 30.6 pg (27.0-35.0); Monocytes % 11.3 % (3.3-12.3); Neutrophils % 60.2 % (41.7-73.7); Nucleated Red Blood Cells % 0.2 % (0-0); Platelets 252 thou/uL (152-406); RBC Red Blood Cell Count 4.41 M/uL (3.86-4.86); Red Cell Distribution Width 13.9 % (12.1-15.2)
[2024-09-18 21:42] LABS: ALT/SGPT 26 U/L (13-56); AST/SGOT 17 U/L (15-37); Albumin 3.5 g/dL (3.4-5.0); Alkaline Phosphatase 87 U/L (45-117); Anion Gap 9.5 mEq/L (5.0-15.0); BUN Blood Urea Nitrogen 21 mg/dL (7-18); Bicarbonate 29 mEq/L (21-32); Bilirubin Total 0.5 mg/dL (0.2-1.0); Globulin 3.4 g/dL (2.3-3.5); Glomerular Filtration Rate 53 ml/min (=/>90); Glucose Level 96 mg/dL (74-106); NT PRO-BNP 84 pg/mL (<450); Potassium 4.5 mEq/L (3.5-5.1); Protein, Total 6.9 g/dL (6.4-8.2); Sodium Level 136 mEq/L (136-145)
[2024-09-18 21:43] LABS: Bilirubin Direct < 0.2 mg/dL (0-0.2); Bilirubin Indirect, Calculated 0.3 mg/dL (0.2-0.8)
--- NOTE | 2024-09-18 22:16 | RAD REPORT ---
EXAMINATION: ONE VIEW CHEST XR CLINICAL INDICATION: Female, 79 years old.,syncope TECHNIQUE: Frontal chest projection is submitted. Examination is limited by patient positioning and t echnique. COMPARISON: 09/08/2024 FINDINGS: The lungs are grossly clear although suboptimal inspiratory effort somewhat limits evaluation. No pn eumothorax or sizable effusion. The heart is normal in size. Mediastinal contours are unremarkable. IMPRESSION: No acute intrathoracic abnormalities.
--- NOTE | 2024-09-18 22:16 | RAD REPORT ---
EXAMINATION: XR Elbow Left 3 View CLINICAL INDICATION: Female, 79 years old. left elbow hit contusion TECHNIQUE: 3 view radiographs of the left elbow were obtained. COMPARISON: No prior exam. FINDINGS: No evidence of fracture or dislocation. Normal alignment. No joint effusion. No evidence of arthropathy. No suspicious focal bone lesion. Soft tissues are unremarkable. IMPRESSION: No acute or significant abnormalities.
--- NOTE | 2024-09-18 22:16 | RAD REPORT ---
EXAM: CT brain without contrast HISTORY: Neck pain COMPARISON: 08/05/2024 TECHNIQUE: Multiple contiguous axial images were obtained and a CT of the brain without contrast. Sag ittal and coronal reformats were performed. FINDINGS: No evidence of hydrocephalus, intracranial hemorrhage, or extra-axial fluid collection. The brain is normal in morphology. The calvarium is intact. The visualized paranasal sinuses and mastoid air cells are essentially clear . IMPRESSION: No evidence of acute intracranial abnormality. EXAM: CT of the cervical spine without contrast HISTORY: Neck pain COMPARISON: None TECHNIQUE: Multiple contiguous axial images were obtained in a CT of the cervical spine without contr ast. Sagittal and coronal reformats were performed. FINDINGS: The vertebral bodies demonstrate normal height and alignment. No evidence of acute fracture or subluxation.. Multilevel degenerative changes with up to moderate bilateral neural foraminal narrowing most notably at C5-6. No prevertebral soft tissue swelling is seen. The posterior facets are well aligned. Normal alignment of the skull base with the cervical spine is seen. The lung apices are unremarkable. IMPRESSION: No evidence of acute osseous abnormality of the cervical spine. Multilevel degenerative changes as above.
--- NOTE | 2024-09-18 22:17 | RAD REPORT ---
EXAM: XR Knee Left 3 View HISTORY: [facility] MAIN left knee pain Bed Name: 5 COMPARISON: None TECHNIQUE: 3 views of the left knee were obtained. FINDINGS: Mild knee effusion is seen. There is no evidence of acute fracture or dislocation. . 2 mod erate degenerative changes are noted, most pronounced along the medial weightbearing compartment. Enthesopathy at the quadriceps tendon attachment. No soft tissue swelling or other soft tissue abnor mality is present. IMPRESSION: No evidence of acute osseous abnormality. Mild joint effusion. Degenerative changes as above.
--- NOTE | 2024-09-18 22:55 | EDPHYS ---
Physician Documentation [facility] Name: Magaly Osorio Age: 79 yrs Sex: Female : 1945 Arrival Date: 09/18/2024 Time: 20:30 Bed 5 Private MD: ED Physician Santo Erickson HPI: 09/18 20:43 This 79 yrs old Female presents to ER via Unassigned with complaints of Fall sp4 Injury. 23:08 79-year-old female with past medical history of acid reflux, asthma, blood clots, COPD, sp4 hyperlipidemia, hypertension presents with acute syncopal episode at home fall or neck injury neck pain and associated left elbow abrasion. Patient states he was leaning over and bending over to pick something off the floor when she developed lightheadedness she passed out she fell causing pain in her neck and left elbow abrasion. Also left knee pain. Patient was admitted here 09/09/2024 for syncopal episode patient had an extensive workup including MRI of the brain, echocardiogram and EEG that were reportedly normal. Patient was then discharged home with neurology and cardiology follow-up.. Historical: - Allergies: 20:53 Alcohol containing products; ha1 20:53 Aspirin; ha1 20:53 Benadryl; ha1 20:53 Tylenol-Codeine #3; ha1 - Home Meds: 20:53 metoprolol tartrate 25 mg Oral tablet 2 times per day [Active]; Lipitor 10 mg Oral tab ha1 1 tab once daily [Active]; clopidogrel oral [Active]; Plavix Oral [Active]; Metoprolol Tartrate Oral [Active]; - PMHx: 20:53 acid reflux; Asthma; blood clots (Unknown); COPD; Hyperlipidemia; Hypertensive disorder;ha1 - Immunization history:: Adult Immunizations up to date. - Infectious Disease History:: Denies. - Social history:: Smoking status: unknown. - Family history:: not pertinent. ROS: 23:08 Constitutional: Negative for fever, chills, and weight loss, positive for syncope, sp4 positive for fall, positive neck pain and positive for left elbow abrasion 23:08 All other systems are negative, Exam: 23:07 Constitutional: This is a well developed, well nourished patient who is awake, alert, sp4 and in no acute distress. Head/Face: Normocephalic, atraumatic. Eyes: Pupils equal round and reactive to light, extra-ocular motions intact. Lids and lashes normal. Conjunctiva and sclera are not injected. Cornea within normal limits. Periorbital areas with no swelling, redness, or edema. ENT: Nares patent. No nasal discharge, no septal abnormalities noted. Tympanic membranes are normal and external auditory canals are clear. Oropharynx with no redness, swelling, or masses, exudates, or evidence of obstruction, uvula midline. Mucous membranes moist. Neck: Trachea midline, no thyromegaly or masses palpated, and no cervical lymphadenopathy. Supple, full range of motion without nuchal rigidity, or vertebral point tenderness. Chest/axilla: Normal chest wall appearance and motion. Nontender with no deformity. No lesions are appreciated. Cardiovascular: Regular rate and rhythm with a normal S1 and S2. No gallops, murmurs, or rubs. Normal PMI, no JVD. No pulse deficits. Respiratory: Lungs have equal breath sounds bilaterally, clear to auscultation and percussion. No rales, rhonchi or wheezes noted. No increased work of breathing, no retractions or nasal flaring. Abdomen/GI: Soft, with normal bowel sounds. No distension or tympany. No guarding or rebound. No evidence of tenderness throughout. Back: No spinal tenderness. No costovertebral tenderness. Female : Normal external genitalia. Skin: Warm, dry with normal turgor. Normal color with no rashes, no lesions, and no evidence of cellulitis. MS/ Extremity: Pulses equal, no cyanosis. Neurovascular intact. Full, normal range of motion. Neuro: Awake and alert, GCS 15, oriented to person, place, time, and situation. Cranial nerves II-XII grossly intact. Motor strength 5/5 in all extremities. Sensory grossly intact. Psych: Awake, alert, with orientation to person, place and time. Behavior, mood, and affect are within normal limits 23:08 ECG was reviewed by the Attending Physician. EKG at 2146 normal sinus rhythm rate 78 sp4 left bundle branch block. Vital Signs: 20:42 BP 185 / 84; Pulse 77; Resp 18 S; Temp 98.1(O); Pulse Ox 99% on R/A; Weight 78.93 kg; ha1 Height 5 ft. 5 in. ; 21:26 BP 139 / 73; Pulse 74; Resp 16; Pulse Ox 99% on R/A; dd2 22:00 BP 160 / 71; Pulse 78; Resp 17; Pulse Ox 99% on R/A; dd2 23:00 BP 148 / 87; Pulse 87; Resp 16; Pulse Ox 98% on R/A; dd2 09/19 00:00 BP 134 / 63; Pulse 77; Resp 16; Pulse Ox 98% on R/A; dd2 01:12 BP 129 / 64; Pulse 76; Resp 17; Pulse Ox 97% on R/A; dd2 09/18 20:42 Body Mass Index 28.95 (78.93 kg, 165.1 cm) ha1 NIH Stroke Scale Scores: 09/18 23:07 NIHSS Score: 0 sp4 [place] Coma Score: 21:16 Eye Response: spontaneous(4). Motor Response: obeys commands(6). Verbal Response: dd2 oriented(5). Total: 15. 23:07 Eye Response: spontaneous(4). Motor Response: obeys commands(6). Verbal Response: sp4 oriented(5). Total: 15. MDM: 21:58 ED course: Record Review - Reason for Exam: ams Report Status: Signed EXAMINATION: MRI sp4 BRAIN WITHOUT CONTRAST CLINICAL INDICATION: Female, 79 years old.[facility] N ams TECHNIQUE: Multiplanar multi sequence MR images of the brain were obtained without intravenous contrast. Unless otherwise specified, incidental findings do not require dedicated imaging follow-up. COMPARISON: 08/07/[address] CT angiogram to 09/08/2024 FINDINGS: INTRACRANIAL: Midline structures are unremarkable. Diffusion-weighted images show no acute or early subacute infarction. There is moderate brain atrophy with moderateT2/FLAIR hyperintensities in the periventricular and deep white matter regions, likely representing chronic microvascular ischemic changes. Findings are overall stable. There is no mass effect or midline shift. No abnormal extra axial fluid collection. VASCULATURE: Normal signal voids in the larger intracranial arteries and dural venous sinuses. SINUSES: The paranasal sinuses and mastoid air cells are predominantly clear. BONE: The marrow signal pattern is within normal limits. IMPRESSION: No significant intracranial abnormalities. Stable sequelae of presumed chronic small vessel ischemic changes as above 09/09/2024 10:19 AM . ED course: EEG - CHART: [id number] TEST ID#: [id number] DATE OF STUDY: 09/09/2024 THE EEG WAS RECORDED PORTABLE IN THE EMERGENCY ROOM ON A 17 CHANNEL MACHINE. ELECTRODES WERE APPLIED IN THE USUAL MANNER USING THE INTERNATIONAL 10-20 SYSTEM. THE WAKING BACKGROUND RHYTHM IN THIS RECORD CONSISTS OF WELL DEVELOPED AND WELL ORGANIZED WAVES OF 8.5 HZ., MAXIMAL IN THE POSTERIOR HEAD REGIONS WHICH ATTENUATE NORMALLY WITH EYE OPENING. LOW-VOLTAGE 18-22 HZ ACTIVITY IS EXPRESSED IN THE FRONTAL REGIONS. THERE ARE NO FOCAL OR LATERALIZING FEATURES. NO EPILEPTIFORM ACTIVITY APPEARS. SLEEP OCCURRED NATURALLY. IN ADDITION NORMAL SLEEP PATTERNS ARE PRESENT. HYPERVENTILATION WAS NOT PERFORMED. PHOTIC STIMULATION PRODUCED POOR DRIVING BILATERALLY. IMPRESSION: NORMAL EEG FOR THE AGE OF THE PATIENT IN [place], DROWSINESS AND SLEEP. Dictated By: Rick Figueroa MD 09/17/24 . 22:01 ED course: Echocardiogram COMMENTS: 1. NORMAL LEFT VENTRICULAR SYSTOLIC FUNCTION, sp4 EJECTION FRACTION 60-65%, NORMAL WALL MOTION. 2. GRADE I DIASTOLIC DYSFUNCTION. TECHNOLOGIST: LINDSAY GARZON Dictated By: Michael Merchant MD 09/09/24 1402. 22:54 Medical Screening Exam initiated sp4 23:08 Differential diagnosis: abrasion, closed head injury, contusion, fracture, laceration, sp4 multiple trauma, sprain, strain. Data reviewed: vital signs, nurses notes, EMS record, old medical records, lab test result(s), EKG, radiologic studies, CT scan, plain films. ED course: EXAM: CT brain without contrast HISTORY: Neck pain COMPARISON: 08/05/2024 TECHNIQUE: Multiple contiguous axial images were obtained and a CT of the brain without contrast. Sagittal and coronal reformats were performed. FINDINGS: No evidence of hydrocephalus, intracranial hemorrhage, or extra-axial fluid collection. The brain is normal in morphology. The calvarium is intact. The visualized paranasal sinuses and mastoid air cells are essentially clear. IMPRESSION: No evidence of acute intracranial abnormality. EXAM: CT of the cervical spine without contrast HISTORY: Neck pain COMPARISON: None TECHNIQUE: Multiple contiguous axial images were obtained in a CT of the cervical spine without contrast. Sagittal and coronal reformats were performed. FINDINGS: The vertebral bodies demonstrate normal height and alignment. No evidence of acute fracture or subluxation.. Multilevel degenerative changes with up to moderate bilateral neural foraminal narrowing most notably at C5-6. No prevertebral soft tissue swelling is seen. The posterior facets are well aligned. Normal alignment of the skull base with the cervical spine is seen. The lung apices are unremarkable. IMPRESSION: No evidence of acute osseous abnormality of the cervical spine. Multilevel degenerative changes as above. . ED course: EXAMINATION: ONE VIEW CHEST XR CLINICAL INDICATION: Female, 79 years old.,syncope TECHNIQUE: Frontal chest projection is submitted. Examination is limited by patient positioning and technique. COMPARISON: 09/08/2024 FINDINGS: The lungs are grossly clear although suboptimal inspiratory effort somewhat limits evaluation. No pneumothorax or sizable effusion. The heart is normal in size. Mediastinal contours are unremarkable. IMPRESSION: No acute intrathoracic abnormalities. . ED course: EXAM: XR Knee Left 3 View HISTORY: [facility] left knee pain Bed Name: 5 COMPARISON: None TECHNIQUE: 3 views of the left knee were obtained. FINDINGS: Mild knee effusion is seen. There is no evidence of acute fracture or dislocation. . 2 moderate degenerative changes are noted, most pronounced along the medial weightbearing compartment. Enthesopathy at the quadriceps tendon attachment. No soft tissue swelling or other soft tissue abnormality is present. IMPRESSION: No evidence of acute osseous abnormality. Mild joint effusion. Degenerative changes as above. ED course: EXAMINATION: XR Elbow Left 3 View CLINICAL INDICATION: Female, 79 years old. left elbow hit contusion TECHNIQUE: 3 view radiographs of the left elbow were obtained. COMPARISON: No prior exam. FINDINGS: No evidence of fracture or dislocation. Normal alignment. No joint effusion. No evidence of arthropathy. No suspicious focal bone lesion. Soft tissues are unremarkable. IMPRESSION: No acute or significant abnormalities.. 09/18 21:09 Order name: Basic Metabolic Panel; Complete Time: 22:38 sp4 09/18 21:09 Order name: CBC with Diff; Complete Time: 22:38 sp4 09/18 21:09 Order name: LFT's; Complete Time: 22:38 sp4 09/18 21:09 Order name: NT PRO-BNP; Complete Time: 22:38 sp4 09/18 21:09 Order name: Troponin HS; Complete Time: 22:38 sp4 09/18 20:45 Order name: CT Head C Spine; Complete Time: 22:38 sp4 09/18 20:45 Order name: Elbow Left 3 View XRAY; Complete Time: 22:38 sp4 09/18 20:45 Order name: Knee Left 3 View XRAY; Complete Time: 22:38 sp4 09/18 21:09 Order name: XRAY Chest (1 view); Complete Time: 22:38 sp4 09/18 21:09 Order name: EKG; Complete Time: 21:10 sp4 09/18 20:48 Order name: Wound Care: Left elbow wound care ; Complete Time: 22:07 sp4 09/18 21:09 Order name: Cardiac monitoring; Complete Time: 21:55 sp4 09/18 21:09 Order name: EKG - Nurse/Tech; Complete Time: 21:55 sp4 09/18 21:09 Order name: IV Saline Lock; Complete Time: 21:11 sp4 09/18 21:09 Order name: Labs collected and sent; Complete Time: 21:11 sp4 09/18 21:09 Order name: O2 Per Protocol; Complete Time: 21:11 sp4 09/18 21:09 Order name: O2 Sat Monitoring; Complete Time: 21:11 sp4 EC:46 Rate is 78 beats/min. Rhythm is regular, Normal Sinus Rhythm. QRS [place] is Normal. [place] sp4 interval is normal. QRS interval is prolonged. QT interval is normal. No Q waves. T waves are Normal. No ST changes noted. Clinical impression: No evidence of ischemia. Interpreted by me. Reviewed by me. Administered Medications: No medications were administered Disposition Summary: 09/18/24 22:54 Transfer Ordered Notes: Transfer Location: [facility] sp4 Reason: Higher level of care sp4 Condition: Stable sp4 Problem: new sp4 Symptoms: have improved sp4 Accepting Physician: [facility]'s attending hospitalist (09/19/24 01:53) dd2 Diagnosis - Syncope and collapse, multiple syncopal episodes, acute fall at home, acute neck sp4 pain, Left elbow abrasion Forms: - Medication Reconciliation Form sp4 - SBAR form sp4 NIH Stroke Scale - NIH Stroke Score Date: 09/18/2024 Time: 23:07 Total Score = 0 10. Dysarthria (speech clarity - read or repeat words) - 0(Normal) 11. Extinction and Inattention (visual/tactile/auditory/spatial/personal) - 0(No abnormality) 1a. Level of Consciousness (LOC) - 0(Alert) 1b. Level of Consciousness (LOC) (Month \T\ Age) - 0(Both) 1c. LOC Commands (Open \T\ Closes Eyes/Sanitary Engineer) - 0(Both) 2. Best Gaze (Lateral Gaze Paresis) - 0(Normal) 3. Visual Field Loss - 0(No visual loss) 4. Facial Palsy - 0(Normal) 5a. Left Arm: Motor (10-second hold) - 0(No drift) 5b. Right Arm: Motor (10-second hold) - 0(No drift) 6a. Left Leg: Motor (5-second hold - always test supine) - 0(No drift) 6b. Right Leg: Motor (5-second hold - always test supine) - 0(No drift) 7. Limb Ataxia (finger/nose \T\ heel/garcía - test with eyes open) - 0(Absent) 8. Sensory Loss (pinprick arms/legs/face) - 0(Normal) 9. Best Language: Aphasia (description/naming/reading) - 0(No aphasia) Initials: sp4 Signatures: Dispatcher [employer] EDTherese Simpson RN RN ha1 Santo Erickson MD MD sp4 CATHY HERNANDEZ RN RN dd2 Corrections: (The following items were deleted from the chart) 09/19 01:53 09/18 22:54 [facility] attending hospitalist sp4 dd2
--- NOTE | 2024-09-18 22:55 | ER ---
Nurse's Notes [facility] Name: Magaly Osorio Age: 79 yrs Sex: Female : 1945 Arrival Date: 09/18/2024 Time: 20:30 Bed 5 Private MD: Diagnosis: Syncope and collapse, multiple syncopal episodes, acute fall at home, acute neck pain, Left elbow abrasion Presentation: 09/18 20:42 Chief complaint: EMS states: SYNCOPE EPISODE, FELL DOWN TO FLOOR. REPORTS NECK PAIN. ha1 ABRASION TO LEFT ARM. ON BLOOD THINNERS. 20:42 Coronavirus screen: Client denies travel out of the [place] in the last 14 days. Ebola ha1 Screen: No symptoms or risks identified at this time. Initial Sepsis Screen: Does the patient meet any 2 criteria? No. Patient's initial sepsis screen is negative. Does the patient have a suspected source of infection? No. Patient's initial sepsis screen is negative. Risk Assessment: Do you want to hurt yourself or someone else? Patient reports no desire to harm self or others. Onset of symptoms was September 18, 2024. 20:42 Method Of Arrival: EMS: [facility] ha1 20:42 Acuity: DEE 3 ha1 Triage Assessment: 20:42 General: Appears uncomfortable, Behavior is. Pain: Complains of pain in NECK AND LEFT ha1 ARM. Neuro: Level of Consciousness is awake, alert, obeys commands, Oriented to person, place, time, situation. Cardiovascular: Capillary refill < 3 seconds Patient's skin is warm and dry. Respiratory: Airway is patent Respiratory effort is even, unlabored, Respiratory pattern is regular, symmetrical. GI: Abdomen is round non-distended. : No signs and/or symptoms were reported regarding the genitourinary system. Historical: - Allergies: 20:53 Alcohol containing products; ha1 20:53 Aspirin; ha1 20:53 Benadryl; ha1 20:53 Tylenol-Codeine #3; ha1 - Home Meds: 20:53 metoprolol tartrate 25 mg Oral tablet 2 times per day [Active]; Lipitor 10 mg Oral tab ha1 1 tab once daily [Active]; clopidogrel oral [Active]; Plavix Oral [Active]; Metoprolol Tartrate Oral [Active]; - PMHx: 20:53 acid reflux; Asthma; blood clots (Unknown); COPD; Hyperlipidemia; Hypertensive disorder;ha1 - Immunization history:: Adult Immunizations up to date. - Infectious Disease History:: Denies. - Social history:: Smoking status: unknown. - Family history:: not pertinent. Screenin:16 [facility] ED Fall Risk Assessment (Adult) History of falling in the last 3 months, dd2 including since admission Yes- physiologic fall (2 pts) Confusion or Disorientation No (0 pts) Intoxicated or Sedated No (0 pts) Impaired Gait No (0 pts) Mobility Assist Device Used Yes (1 pt) Altered Elimination No (0 pt) Score/Fall Risk Level 3 or more points = High Risk Oriented to surroundings, Maintained a safe environment, Educated pt \T\ family on fall prevention, incl call for assistance when getting out of bed, Assessed \T\ reinforced patient's understanding of fall precautions, Provided non-skid footwear, Hourly rounding (assess needs \T\ fall precautionary measures) done, Used ambulatory aids as needed (educated on \T\ assisted with), Utilized family, sitter, or virtual basting marker as indicated. Abuse screen: Denies threats or abuse. Nutritional screening: No deficits noted. Tuberculosis screening: No symptoms or risk factors identified. Assessment: 21:16 General: Appears in no apparent distress. uncomfortable, Behavior is calm, cooperative, dd2 appropriate for age. Pain: Complains of pain in left elbow, right knee and left knee Pain does not radiate. Pain currently is 6 out of 10 on a pain scale. Neuro: Billy Agitation-Sedation Scale (RASS): 0 - Alert and Calm Level of Consciousness is awake, alert, obeys commands, Oriented to person, place, time, situation, Appropriate for age. Cardiovascular: Heart tones S1 S2 present Patient's skin is warm and dry. Rhythm is sinus rhythm. Respiratory: Airway is patent Respiratory effort is even, unlabored, Respiratory pattern is regular, symmetrical. GI: Abdomen is non-distended, obese, Bowel sounds present X 4 quads. Abd is soft and non tender X 4 quads. : No deficits noted. No signs and/or symptoms were reported regarding the genitourinary system. EENT: No deficits noted. No signs and/or symptoms were reported regarding the EENT system. Derm: Wound noted left elbow Wound is ABRAISON Reports pain that is 4 out of 10 on a pain scale. Musculoskeletal: Circulation, motion, and sensation intact. Range of motion: intact in all extremities, Reports pain in CELESTINO KNEES, LT ELBOW. Injury Description: Abrasion sustained to left elbow is bleeding. Vital Signs: 20:42 BP 185 / 84; Pulse 77; Resp 18 S; Temp 98.1(O); Pulse Ox 99% on R/A; Weight 78.93 kg; ha1 Height 5 ft. 5 in. ; 21:26 BP 139 / 73; Pulse 74; Resp 16; Pulse Ox 99% on R/A; dd2 22:00 BP 160 / 71; Pulse 78; Resp 17; Pulse Ox 99% on R/A; dd2 23:00 BP 148 / 87; Pulse 87; Resp 16; Pulse Ox 98% on R/A; dd2 09/19 00:00 BP 134 / 63; Pulse 77; Resp 16; Pulse Ox 98% on R/A; dd2 01:12 BP 129 / 64; Pulse 76; Resp 17; Pulse Ox 97% on R/A; dd2 09/18 20:42 Body Mass Index 28.95 (78.93 kg, 165.1 cm) ha1 Sky Coma Score: 09/18 21:16 Eye Response: spontaneous(4). Motor Response: obeys commands(6). Verbal Response: dd2 oriented(5). Total: 15. 23:07 Eye Response: spontaneous(4). Motor Response: obeys commands(6). Verbal Response: sp4 oriented(5). Total: 15. NIH Stroke Scale Scores: 23:07 NIHSS Score: 0 sp4 ED Course: 20:32 Patient arrived in ED. [id number] 20:43 Santo Erickson MD is Attending Physician. sp4 20:52 Inserted saline lock: 20 gauge in right antecubital area, using aseptic technique. vk Blood collected. Flushed with 10 mL NS. 20:53 Triage completed. ha1 21:10 CATHY HERNANDEZ, TODD is Primary Nurse. dd2 21:16 CT Head C Spine In Process Unspecified. EDMS 21:16 No provider procedures requiring assistance completed. Patient maintains SpO2 dd2 saturation greater than 95% on room air. Wound care: to laceration located on left elbow was cleaned with with NS, dressed with 4X4s, cling. 21:16 Patient has correct armband on for positive identification. Bed in low position. Call dd2 light in reach. Side rails up X2. Client placed on continuous cardiac and pulse oximetry monitoring. NIBP monitoring applied. monitoring and evaluation advisor on. Door closed. Noise minimized. Warm blanket given. Pillow given. Verbal reassurance given. 21:23 Basic Metabolic Panel Sent. vk 21:23 CBC with Diff Sent. vk 21:23 LFT's Sent. vk 21:23 NT PRO-BNP Sent. vk 21:23 Troponin HS Sent. vk 21:29 Elbow Left 3 View XRAY In Process Unspecified. EDMS 21:29 Knee Left 3 View XRAY In Process Unspecified. EDMS 21:29 XRAY Chest (1 view) In Process Unspecified. EDMS 21:56 EKG done, by ED staff. vk 21:56 Initial lab(s) drawn, by me, sent to lab. vk 09/19 01:12 Patient transferred, IV remains in place. dd2 01:12 Provided Education on: TRANSFER EDUCATION. dd2 Administered Medications: No medications were administered Medication: 09/18 21:16 VIS not applicable for this client. dd2 Outcome: 22:54 ER care complete, transfer ordered by MD. harris 09/19 01:12 Transferred by ground EMS to [facility], Transfer form completed. dd2 Condition: stable Instructed on the need for transfer, Demonstrated understanding of instructions, 01:53 Patient left the ED. dd2 NIH Stroke Scale - NIH Stroke Score Date: 09/18/2024 Time: 23:07 Total Score = 0 10. Dysarthria (speech clarity - read or repeat words) - 0(Normal) 11. Extinction and Inattention (visual/tactile/auditory/spatial/personal) - 0(No abnormality) 1a. Level of Consciousness (LOC) - 0(Alert) 1b. Level of Consciousness (LOC) (Month \T\ Age) - 0(Both) 1c. LOC Commands (Open \T\ Closes Eyes/Print Shop Chief Clerk) - 0(Both) 2. Best Gaze (Lateral Gaze Paresis) - 0(Normal) 3. Visual Field Loss - 0(No visual loss) 4. Facial Palsy - 0(Normal) 5a. Left Arm: Motor (10-second hold) - 0(No drift) 5b. Right Arm: Motor (10-second hold) - 0(No drift) 6a. Left Leg: Motor (5-second hold - always test supine) - 0(No drift) 6b. Right Leg: Motor (5-second hold - always test supine) - 0(No drift) 7. Limb Ataxia (finger/nose \T\ heel/garcía - test with eyes open) - 0(Absent) 8. Sensory Loss (pinprick arms/legs/face) - 0(Normal) 9. Best Language: Aphasia (description/naming/reading) - 0(No aphasia) Initials: sp4 Signatures: Dispatcher [employer] EDMS BenyDaily wallace [email or web address] Therese Salgado RN RN ha1 Santo Erickson MD MD sp4 Phyllis Mcallister DIANA, RN RN dd2 Corrections: (The following items were deleted from the chart) 00:20 09/18 21:16 Derm: Wound noted left elbow Wound is LACERATION Reports pain that dd2 is 4 out of 10 on a pain scale. dd2 09/19 00:20 02 21:16 Injury Description: Laceration sustained to left elbow is bleeding dd2 moderately, moderate bleeding noted at this time. dd2
[2024-09-19 02:22] VITALS: TEMP 98.1
[2024-09-19 02:33] VITALS: BP 129/64; O2SAT 97
== END 2024-09-19 01:53 | disposition short-term general hospital (02) ==
LOC: ER 20:30
DX: R55 Syncope and collapse (principal); S50.312A Abrasion of left elbow, initial encounter; M54.2 Cervicalgia; M25.562 Pain in left knee; W18.30XA Fall on same level, unspecified, initial encounter; Y92.009 Unspecified place in unspecified non-institutional (private) residence as the place of occurrence of the external cause; I10 Essential (primary) hypertension; J44.9 Chronic obstructive pulmonary disease, unspecified; Z79.01 Long term (current) use of anticoagulants
CPT/HCPCS: 36415; 70450; 71045; 72125; 80048; 80076; 83880; 84484; 85025; 93005; 99285